=== PATIENT | female | born 1960 | race African-American/Black ===

== ENCOUNTER 2020-11-30 00:34 | Emergency (ER) | payer BC ==
[2020-11-30] MEDS ORDERED: NA CHLORIDE 0.9% 1,000 ML ONE (01:27)
[2020-11-30] MEDS ORDERED: ONDANSETRON 4 MG/2 ML VIAL ONE (01:27)
[2020-11-30] MEDS ORDERED: MORPHINE 2 MG/ML SYR ONE (01:27)
[2020-11-30 01:42] LABS: Absolute Lymphocytes (CBC) 2.5 K/uL (0.7-4.9); Basophils % 0.9 % (0-1.3); Hematocrit 38.8 % (36.0-45.0); Lymphocytes % 40.9 % (15.3-44.8); MPV 10.4 fL (7.6-11.3); RBC Red Blood Cell Count 4.27 M/uL (3.86-4.86)
[2020-11-30 01:46] LABS: Protime INR 0.98
[2020-11-30 02:02] LABS: ALT/SGPT 31 U/L (12-78); AST/SGOT 23 U/L (15-37); Albumin 3.7 g/dL (3.4-5.0); Alkaline Phosphatase 119 U/L (45-117); BUN Blood Urea Nitrogen 8 mg/dL (7-18); Bicarbonate 25 mmol/L (21-32); Bilirubin Direct < 0.1 mg/dL (0-0.2); Bilirubin Total 0.2 mg/dL (0.2-1.0); Glucose Level 113 mg/dL (74-106); Lipase 106 U/L (73-393); Magnesium 2.2 mg/dL (1.8-2.4); NT PRO-BNP 61 pg/mL (<125); Potassium 3.6 mmol/L (3.5-5.1); Protein, Total 7.6 g/dL (6.4-8.2); Sodium Level 145 mmol/L (136-145); Troponin (Emerg Dept Use Only) < 0.02 ng/mL (0.0-0.045)
--- NOTE | 2020-11-30 02:19 | ER ---
Nurse's Notes [facility] Name: Sommer Thibodeaux Age: 60 yrs Sex: Female : 1960 Arrival Date: 11/30/2020 Time: 00:37 Bed 5 Private MD: Diagnosis: Diarrhea, unspecified Presentation: 11/30 00:55 Chief complaint: Patient states: diarrhea that started at 130 PM today, denies N/V or em abd pain, also reports right shoulder pain, had a stress test and EKG done yesterday to clear her for lithotripsy next week. Coronavirus screen: Client denies travel out of the [place] in the last 14 days. Ebola Screen: Patient negative for fever greater than or equal to 101.5 degrees Fahrenheit, and additional compatible Ebola Virus Disease symptoms Patient denies exposure to infectious person. Patient denies travel to an Ebola-affected area in the 21 days before illness onset. No symptoms or risks identified at this time. Initial Sepsis Screen: Does the patient meet any 2 criteria? No. Patient's initial sepsis screen is negative. Does the patient have a suspected source of infection? No. Patient's initial sepsis screen is negative. Risk Assessment: Do you want to hurt yourself or someone else? Patient reports no desire to harm self or others. Onset of symptoms was November 30, 2020. 00:55 Method Of Arrival: Ambulatory em 00:55 Acuity: VICTORIA 3 em Historical: - Allergies: 01:01 No Known Allergies; em - PMHx: 01:01 Hypertension; em - PSHx: 01:01 Tubal ligation; Hysterectomy; em - Immunization history:: Adult Immunizations up to date. - Social history:: Smoking status: Patient denies any tobacco usage or history of. - Family history:: not pertinent. Screenin:29 Abuse screen: Denies threats or abuse. Denies injuries from another. Nutritional rr5 screening: No deficits noted. Tuberculosis screening: No symptoms or risk factors identified. Fall Risk IV access (20 points). Total Zayas Fall Scale indicates No Risk (0-24 pts). Assessment: 01:30 General: Appears in no apparent distress. uncomfortable, Behavior is calm, cooperative, rr5 appropriate for age. Pain: Complains of pain in shoulder Pain currently is 5 out of 10 on a pain scale. Quality of pain is described as aching, Pain began gradually, Is intermittent. Neuro: Level of Consciousness is awake, alert, obeys commands, Oriented to person, place, time, situation. Cardiovascular: Capillary refill < 3 seconds Patient's skin is warm and dry. Respiratory: Airway is patent Respiratory effort is even, unlabored, Respiratory pattern is regular, symmetrical. GI: Reports diarrhea. : No signs and/or symptoms were reported regarding the genitourinary system. EENT: No signs and/or symptoms were reported regarding the EENT system. Derm: Skin is intact, is healthy with good turgor, Skin temperature is warm. Musculoskeletal: Circulation, motion, and sensation intact. Capillary refill < 3 seconds, Reports pain in shoulder. 02:55 Reassessment: Patient appears in no apparent distress at this time. Patient states mg2 feeling better. Patient states symptoms have improved. Vital Signs: 00:55 BP 159 / 97; Pulse 68; Resp 18; Temp 98.5; Pulse Ox 100% on R/A; Weight 97.07 kg; em Height 5 ft. 6 in. (167.64 cm); Pain 5/10; 01:43 BP 179 / 92; Pulse 58; Resp 17; Pulse Ox 98% ; rr5 02:53 BP 157 / 83; Pulse 54; Resp 15; Temp 98.3; Pulse Ox 100% ; rv 00:55 Body Mass Index 34.54 (97.07 kg, 167.64 cm) em ED Course: 00:37 Patient arrived in ED. ag3 00:42 Nikunj Padilla, BELÉN is Primary Nurse. rv 01:01 Triage completed. em 01:01 Arm band placed on. em 01:02 Ayad Leon MD is Attending Physician. meghann 01:23 XRAY Chest (1 view) In Process Unspecified. EDMS 01:29 Patient has correct armband on for positive identification. Bed in low position. Call rr5 light in reach. Pulse ox on. NIBP on. 01:29 Inserted saline lock: 20 gauge in right forearm, using aseptic technique. rr5 01:43 teletypesetter monitor on. rr5 01:43 EKG done, by ED staff, reviewed by Ayad Leon MD. rr5 02:18 Alissa Cruz MD is Referral Physician. meghann 02:53 No provider procedures requiring assistance completed. IV discontinued, intact, rv bleeding controlled, No redness/swelling at site. Pressure dressing applied. Administered Medications: 01:25 Drug: NS 0.9% 1000 ml Route: IV; Rate: 1 bolus; Site: right forearm; rr5 02:28 Follow up: Response: No adverse reaction; IV Status: Completed infusion; IV Intake: mg2 1000ml 01:25 Drug: Zofran (Ondansetron) 4 mg Route: IVP; Site: right forearm; rr5 02:28 Follow up: Response: No adverse reaction mg2 01:27 Drug: morphine 2 mg {Note: rass 0.} Route: IVP; Site: right forearm; rr5 02:28 Follow up: Response: No adverse reaction mg2 02:28 Drug: LoMOTIL 2 tabs Route: PO; mg2 02:28 Follow up: Response: No adverse reaction mg2 Intake: 02:28 IV: 1000ml; Total: 1000ml. mg2 Outcome: 02:18 Discharge ordered by . meghann 02:53 Discharged to home ambulatory. rv 02:53 Condition: good 02:54 Discharge instructions given to patient, Instructed on discharge instructions, follow rv up and referral plans. medication usage, Demonstrated understanding of instructions, follow-up care, medications, Prescriptions given X 1. 02:55 Patient left the ED. rv Signatures: Dispatcher [employer] Ayad De Leon MD MD cha Munoz, Edgar, RN RN em Jhon Whitfield RN BELÉN mg2 Nikunj Padilla RN RN rv Radha Valencia Raymond RN RN rr5 Corrections: (The following items were deleted from the chart) 01:02 00:55 Chief complaint: Patient states: diarrhea that started at 130 PM today, denies em N/V, also reports right shoulder pain, had a stress test and EKG done yesterday to clear her for lithotripsy next week em
--- NOTE | 2020-11-30 02:19 | EDPHYS ---
Physician Documentation [facility] Name: Sommer Thibodeaux Age: 60 yrs Sex: Female : 1960 Arrival Date: 11/30/2020 Time: 00:37 Bed 5 Private MD: GRETCHEN Physician Ayad Leon HPI: 11/30 01:10 This 60 yrs old Black Female presents to ER via Ambulatory with complaints of Diarrhea. meghann 01:10 The patient presents to the emergency department with diarrhea, abdominal pain, of the meghann right upper quadrant, left upper quadrant, right lower quadrant and left lower quadrant. Onset: The symptoms/episode began/occurred 1 day(s) ago. Possible causes: unknown. The symptoms are aggravated by nothing. The symptoms are alleviated by nothing. Associated signs and symptoms: The patient has no apparent associated signs or symptoms. Severity of symptoms: At their worst the symptoms were mild in the emergency department the symptoms are unchanged. The patient has not experienced similar symptoms in the past. Historical: - Allergies: 01:01 No Known Allergies; em - PMHx: 01:01 Hypertension; em - PSHx: 01:01 Tubal ligation; Hysterectomy; em - Immunization history:: Adult Immunizations up to date. - Social history:: Smoking status: Patient denies any tobacco usage or history of. - Family history:: not pertinent. ROS: 01:10 Constitutional: Negative for fever, chills, and weight loss, Eyes: Negative for injury, meghann pain, redness, and discharge, ENT: Negative for injury, pain, and discharge, Neck: Negative for injury, pain, and swelling, Cardiovascular: Negative for chest pain, palpitations, and edema, Respiratory: Negative for shortness of breath, cough, wheezing, and pleuritic chest pain, Back: Negative for injury and pain, : Negative for injury, bleeding, discharge, and swelling, MS/Extremity: Negative for injury and deformity, Skin: Negative for injury, rash, and discoloration, Neuro: Negative for headache, weakness, numbness, tingling, and seizure, Psych: Negative for depression, anxiety, suicide ideation, homicidal ideation, and hallucinations, Allergy/Immunology: Negative for hives, rash, and allergies, Endocrine: Negative for neck swelling, polydipsia, polyuria, polyphagia, and marked weight changes, Hematologic/Lymphatic: Negative for swollen nodes, abnormal bleeding, and unusual bruising. 01:10 Abdomen/GI: Positive for abdominal pain, diarrhea. Exam: 01:10 Constitutional: This is a well developed, well nourished patient who is awake, alert, meghann and in no acute distress. Head/Face: Normocephalic, atraumatic. Eyes: Pupils equal round and reactive to light, extra-ocular motions intact. Lids and lashes normal. Conjunctiva and sclera are non-icteric and not injected. Cornea within normal limits. Periorbital areas with no swelling, redness, or edema. ENT: Nares patent. No nasal discharge, no septal abnormalities noted. Tympanic membranes are normal and external auditory canals are clear. Oropharynx with no redness, swelling, or masses, exudates, or evidence of obstruction, uvula midline. Mucous membranes moist. Neck: Trachea midline, no thyromegaly or masses palpated, and no cervical lymphadenopathy. Supple, full range of motion without nuchal rigidity, or vertebral point tenderness. No Meningismus. Chest/axilla: Normal chest wall appearance and motion. Nontender with no deformity. No lesions are appreciated. Cardiovascular: Regular rate and rhythm with a normal S1 and S2. No gallops, murmurs, or rubs. Normal PMI, no JVD. No pulse deficits. Respiratory: Lungs have equal breath sounds bilaterally, clear to auscultation and percussion. No rales, rhonchi or wheezes noted. No increased work of breathing, no retractions or nasal flaring. Abdomen/GI: Soft, non-tender, with normal bowel sounds. No distension or tympany. No guarding or rebound. No evidence of tenderness throughout. Back: No spinal tenderness. No costovertebral tenderness. Full range of motion. Female : Normal external genitalia. Skin: Warm, dry with normal turgor. Normal color with no rashes, no lesions, and no evidence of cellulitis. MS/ Extremity: Pulses equal, no cyanosis. Neurovascular intact. Full, normal range of motion. Neuro: Awake and alert, GCS 15, oriented to person, place, time, and situation. Cranial nerves II-XII grossly intact. Motor strength 5/5 in all extremities. Sensory grossly intact. Cerebellar exam normal. Normal gait. Psych: Awake, alert, with orientation to person, place and time. Behavior, mood, and affect are within normal limits. 01:44 ECG was reviewed by the Attending Physician. [facility] Vital Signs: 00:55 BP 159 / 97; Pulse 68; Resp 18; Temp 98.5; Pulse Ox 100% on R/A; Weight 97.07 kg; em Height 5 ft. 6 in. (167.64 cm); Pain 5/10; 01:43 BP 179 / 92; Pulse 58; Resp 17; Pulse Ox 98% ; rr5 02:53 BP 157 / 83; Pulse 54; Resp 15; Temp 98.3; Pulse Ox 100% ; rv 00:55 Body Mass Index 34.54 (97.07 kg, 167.64 cm) em MDM: 01:[address] [facility] 01:11 Differential diagnosis: Nonspecific abd pain, gastritis, pancreatitis, diverticulitis, meghann viral gastroenteritis. Data reviewed: vital signs, nurses notes, lab test result(s), EKG, radiologic studies, plain films. 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 Test interpretation: by ED physician or midlevel provider: ECG, plain radiologic studies. 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 11/30 01:09 Order name: Basic Metabolic Panel [facility] 11/30 01:09 Order name: CBC with Diff [facility] 11/30 01:09 Order name: LFT's [facility] 11/30 01:09 Order name: Magnesium; Complete Time: 02:14 [facility] 11/30 01:09 Order name: NT PRO-BNP; Complete Time: 02:14 [facility] 11/30 01:09 Order name: PT-INR; Complete Time: 02:14 [facility] 11/30 01:09 Order name: Troponin (emerg Dept Use Only); Complete Time: 02:14 [facility] 11/30 01:09 Order name: Lipase; Complete Time: 02:14 [facility] 11/30 01:09 Order name: Urine Culture [facility] 11/30 01:09 Order name: Stool Culture [facility] 11/30 01:09 Order name: Fecal Leukocyte Stain [facility] 11/30 01:10 Order name: Basic Metabolic Panel; Complete Time: 02:14 [facility] 11/30 01:10 Order name: CBC with Automated Diff; Complete Time: 01:44 [facility] 11/30 01:10 Order name: Liver (Hepatic) Function; Complete Time: 02:14 [facility] 11/30 01:09 Order name: XRAY Chest ([address] view) [facility] 11/30 01:09 Order name: EKG; Complete Time: 01:11 [facility] 11/30 01:09 Order name: Cardiac monitoring; Complete Time: 01:31 [facility] 11/30 01:09 Order name: EKG - Nurse/Tech; Complete Time: 02:29 [facility] 11/30 01:09 Order name: IV Saline Lock; Complete Time: 01:31 [facility] 11/30 01:09 Order name: Labs collected and sent; Complete Time: : [facility] 11/30 01:09 Order name: O2 Per Protocol; Complete Time: :31 [facility] 11/30 01:23 Order name: COVID-19 : Document "Date of Symptom Onset" if Symptomatic. [facility] 11/30 02:27 Order name: SARS-COV-2 RT PCR; Complete Time: 02:54 [facility] 11/30 02:33 Order name: Urine Dipstick--Ancillary (enter results) ds4 11/30 02:34 Order name: Urine Dipstick-Ancillary [facility] 11/30 01:09 Order name: O2 Sat Monitoring; Complete Time: 01:44 [facility] 11/30 01:09 Order name: Urine Dipstick-Ancillary (obtain specimen); Complete Time: 02:34 [facility] EC:44 Rate is 52 beats/min. Rhythm is regular. QRS [place] is Normal. [place] interval is normal. QRS meghann interval is normal. QT interval is normal. No Q waves. T waves are Normal. No ST changes noted. Clinical impression: Normal ECG and No evidence of ischemia. Interpreted by me. Reviewed by me. Administered Medications: 01:25 Drug: NS 0.9% 1000 ml Route: IV; Rate: 1 bolus; Site: right forearm; rr5 02:28 Follow up: Response: No adverse reaction; IV Status: Completed infusion; IV Intake: mg2 1000ml 01:25 Drug: Zofran (Ondansetron) 4 mg Route: IVP; Site: right forearm; rr5 02:28 Follow up: Response: No adverse reaction mg2 01:27 Drug: morphine 2 mg {Note: rass 0.} Route: IVP; Site: right forearm; rr5 02:28 Follow up: Response: No adverse reaction mg2 02:28 Drug: LoMOTIL 2 tabs Route: PO; mg2 02:28 Follow up: Response: No adverse reaction mg2 Disposition: 11/30/20 02:18 Discharged to Home. Impression: Diarrhea, unspecified. - Condition is Stable. - Discharge Instructions: Food Choices to Help Relieve Diarrhea, Adult, Diarrhea, Adult, Diarrhea, Adult, [id number]. - Prescriptions for Lomotil 2.5- 0.025 mg Oral Tablet - take 1 tablet by ORAL route every 6 hours As needed; 20 tablet. - Medication Reconciliation Form, Thank You Letter, Antibiotic Education, Prescription Opioid Use form. - Follow up: Private Physician; When: 2 - 3 days; Reason: Recheck today's complaints, Continuance of care, Re-evaluation by your physician. Follow up: Alissa Cruz; When: 2 - 3 days; Reason: Recheck today's complaints, Re-evaluation by your physician. - Problem is new. - Symptoms have improved. Signatures: Dispatcher [employer] [facility] Ayad Leon MD MD cha Munoz, Edgar, RN RN em Jhon Whitfield RN RN [facility] [place] Nikunj Padilla RN RN rv Doc Cast RN RN rr5 Corrections: (The following items were deleted from the chart) 01:41 01:24 CORONAVIRUS ordered. [facility] 02:55 02:18 11/30/2020 02:18 Discharged to Home. Impression: Diarrhea, unspecified. Condition rv is Stable. Discharge Instructions: Food Choices to Help Relieve Diarrhea, Adult, Diarrhea, Adult, Diarrhea, Adult, [id number]. Prescriptions for Lomotil 2.5-0.025 mg Oral Tablet - take 1 tablet by ORAL route every 6 hours As needed; 20 tablet. and Forms are Medication Reconciliation Form, Thank You Letter, Antibiotic Education, Prescription Opioid Use. Follow up: Private Physician; When: 2 - 3 days; Reason: Recheck today's complaints, Continuance of care, Re-evaluation by your physician. Follow up: Oraliazam Nancy; When: 2 - 3 days; Reason: Recheck today's complaints, Re-evaluation by your physician. Problem is new. Symptoms have improved. meghann
[2020-11-30] MEDS ORDERED: DIPHENOX/ATROP SULF 1 TAB PO ONE (02:41)
[2020-11-30 02:56] LABS: Urine Blood TRACE (NEG); Urine Glucose NEGATIVE (NEG); Urine Protein NEGATIVE (NEG); Urine Specific Gravity 1.015 (1.005-1.030)
[2020-11-30 03:06] VITALS: BP 157/83; TEMP 98.3; O2SAT 100
--- NOTE | 2020-11-30 08:09 | RAD REPORT ---
EXAM DESCRIPTION: Dori Single View11/30/2020 1:23 am CLINICAL HISTORY: Chest pain COMPARISON: 2010 FINDINGS: The lungs appear grossly clear. The heart is normal size IMPRESSION: No acute abnormalities displayed
--- NOTE | 2020-12-02 07:58 | EKG ---
Test Date: 2020-11-30 Test Time: 01:40:19 Undergraduate Intern: RR MEASUREMENT RESULTS: Intervals: Rate: 52 MT: 150 QRSD: 84 QT: 412 QTc: 383 [place]: P: 56 MT: 150 QRS: 47 T: 54 INTERPRETIVE STATEMENTS: Sinus bradycardia Otherwise normal ECG Compared to ECG 09/25/2011 15:36:12 Sinus rhythm no longer present Electronically Signed On 12-02-20 07:53:43 WAREHOUSE COORDINATOR by Claudio Diehl
== END 2020-11-30 02:55 | disposition home or self-care (01) ==
LOC: ER 00:34
DX: R19.7 Diarrhea, unspecified (principal); Z20.822 Contact with and (suspected) exposure to COVID-19; I10 Essential (primary) hypertension
CPT/HCPCS: 96361; 93005; 87088; 87045; 85025; 87086; 80048; 36415; 83735; 89055; 85610; 80076; 87046; 81003; 84484; 83690; 83880; 71045; 96375; 96374; 99284; U0003; J2270; J7030; J2405

== ENCOUNTER 2020-11-30 13:40 | Emergency (ER) | payer BC ==
--- NOTE | 2020-11-30 14:36 | EDPHYS ---
Physician Documentation [facility] Name: Sommer Thibodeaux Age: 60 yrs Sex: Female : 1960 Arrival Date: 11/30/2020 Time: 13:41 Bed 13 Private MD: Jeramy Lowry V ED Physician Raulito Patel HPI: 11/30 13:46 This 60 yrs old Black Female presents to ER via Unassigned with complaints of Blood cp Pressure Check. 13:46 Patient reports she was here at the hospital for blood draw when she became dizzy and cp lightheaded. Patient reports being seen and evaluated last night in [facility] ED for diarrhea. Denies diarrhea today. Would like to have blood pressure checked. Historical: - PMHx: 13:50 Hypertension; vg1 - Social history:: Smoking status: Patient denies any tobacco usage or history of. ROS: 13:55 Constitutional: Negative for body aches, chills, fever, poor PO intake. cp 13:55 Eyes: Negative for injury, pain, redness, and discharge. cp 13:55 Cardiovascular: Negative for chest pain, edema, palpitations. 13:55 Respiratory: Negative for cough, shortness of breath, wheezing. 13:55 Abdomen/GI: Negative for abdominal pain, nausea, vomiting, and diarrhea, black/tarry stool, rectal bleeding. 13:55 : Negative for urinary symptoms. 13:55 Neuro: Negative for altered mental status, headache, loss of consciousness, syncope, weakness. 13:55 All other systems are negative. Exam: 14:22 Head/Face: Normocephalic, atraumatic. cp 14:22 Constitutional: The patient appears in no acute distress, alert, awake, non-diaphoretic, non-toxic, well developed, well nourished. 14:22 Eyes: Periorbital structures: appear normal, Conjunctiva: normal, no exudate, no injection, Sclera: no appreciated abnormality, Lids and lashes: appear normal, bilaterally. 14:22 ENT: External ear(s): are unremarkable, Nose: is normal, Posterior pharynx: Airway: no evidence of obstruction, patent. 14:22 Chest/axilla: Inspection: normal. 14:22 Cardiovascular: Rate: normal, Rhythm: regular, Edema: is not appreciated, JVD: is not appreciated. 14:22 Respiratory: the patient does not display signs of respiratory distress, Respirations: normal, no use of accessory muscles, no retractions, labored breathing, is not present, Breath sounds: are clear throughout, no decreased breath sounds. 14:22 Abdomen/GI: Inspection: abdomen appears normal, Bowel sounds: active, all quadrants, Palpation: abdomen is soft and non-tender, in all quadrants. 14:22 Back: pain, is absent, ROM is normal. 14:22 Neuro: Orientation: to person, place \T\ time. Mentation: is normal, Motor: moves all fours, strength is normal. Vital Signs: 13:48 BP 163 / 90; Pulse 62; Resp 18; Temp 97.9; Pulse Ox 100% on R/A; Pain 0/10; vg1 14:22 BP 135 / 72 Supine; Pulse 58; vg1 14:25 BP 140 / 82 Sitting; Pulse 62; vg1 14:28 BP 140 / 89 Standing; Pulse 58; vg1 MDM: 13:46 Patient medically screened. cp 14:35 Data reviewed: vital signs, nurses notes. cp 14:35 Differential diagnosis: gastroenteritis, dehydration, electrolyte abnormality, cardiac cp arrythmia. Counseling: I had a detailed discussion with the patient and/or guardian regarding: the historical points, exam findings, and any diagnostic results supporting the discharge/admit diagnosis, the presence of at least one elevated blood pressure reading (>120/80) during this emergency department visit, to return to the emergency department if symptoms worsen or persist or if there are any questions or concerns that arise at home. Refusal of service: The patient/guardian displays adequate decision making capability and despite a detailed discussion of alternatives, benefits, risks, and consequences refuses: all lab tests. 11/30 13:47 Order name: Orthostatics; Complete Time: 14:29 cp Administered Medications: No medications were administered Disposition: 17:17 Co-signature as Attending Physician, Raulito Patel MD I agree with the assessment and kdr plan of care. Disposition: 11/30/20 14:36 Discharged to Home. Impression: Encounter for examination of blood pressure. - Condition is Stable. - Discharge Instructions: How to Take Your Blood Pressure, [id number], Form - Blood Pressure Record Sheet. - Medication Reconciliation Form, Thank You Letter, Antibiotic Education, Prescription Opioid Use form. - Follow up: Private Physician; When: 1 - 2 days; Reason: Recheck today's complaints. - Problem is new. - Symptoms have improved. Signatures: Raulito Patel MD MD [facility] Anisha White, RN RN aa5 Ayad Chavez PA PA cp Garcia, Victoria RN RN vg1 Corrections: (The following items were deleted from the chart) 14:45 14:36 11/30/2020 14:36 Discharged to Home. Impression: Encounter for examination of aa5 blood pressure. Condition is Stable. Forms are Medication Reconciliation Form, Thank You Letter, Antibiotic Education, Prescription Opioid Use. Follow up: Private Physician; When: 1 - 2 days; Reason: Recheck today's complaints. Problem is new. Symptoms have improved. cp
--- NOTE | 2020-11-30 14:36 | ER ---
Nurse's Notes [facility] Name: Sommer Thibodeaux Age: 60 yrs Sex: Female : 1960 Arrival Date: 11/30/2020 Time: 13:41 Bed 13 Private MD: Jeramy Lowry V Diagnosis: Encounter for examination of blood pressure Presentation: 11/30 13:48 Chief complaint: Patient states: Was in the front lobby doing some lab work and became vg1 a little dizzy and lightheaded. Coronavirus screen: Client denies travel out of the [place] in the last 14 days. Ebola Screen: Patient negative for fever greater than or equal to 101.5 degrees Fahrenheit, and additional compatible Ebola Virus Disease symptoms. Initial Sepsis Screen: Does the patient meet any 2 criteria? No. Patient's initial sepsis screen is negative. Does the patient have a suspected source of infection? No. Patient's initial sepsis screen is negative. Risk Assessment: Do you want to hurt yourself or someone else? Patient reports no desire to harm self or others. Onset of symptoms was November 30, 2020. 13:48 Method Of Arrival: Ambulatory vg1 13:48 Acuity: VICTORIA 4 vg1 Historical: - PMHx: 13:50 Hypertension; vg1 - Social history:: Smoking status: Patient denies any tobacco usage or history of. Screenin:31 Abuse screen: Denies threats or abuse. Nutritional screening: No deficits noted. vg1 Tuberculosis screening: No symptoms or risk factors identified. Fall Risk No fall in past 12 months (0 pts). No secondary diagnosis (0 pts). No IV (0 pts). Ambulatory Aid- None/Bed Rest/Nurse Assist (0 pts). Gait- Normal/Bed Rest/Wheelchair (0 pts) Mental Status- Oriented to own ability (0 pts). Total Zayas Fall Scale indicates No Risk (0-24 pts). Assessment: 13:50 General: Appears in no apparent distress. comfortable, Behavior is calm, cooperative. vg1 Pain: Denies pain. Neuro: Level of Consciousness is awake, alert, obeys commands, Oriented to person, place, time, situation. Cardiovascular: Patient's skin is warm and dry. Respiratory: Airway is patent Respiratory effort is even, unlabored, Respiratory pattern is regular, symmetrical. GI: No signs and/or symptoms were reported involving the gastrointestinal system. : No signs and/or symptoms were reported regarding the genitourinary system. EENT: No signs and/or symptoms were reported regarding the EENT system. Derm: Skin is intact, is healthy with good turgor. Musculoskeletal: Circulation, motion, and sensation intact. 14:32 Pain: Pain does not radiate. vg1 14:40 Neuro: Level of Consciousness is awake, alert, obeys commands, Oriented to person, aa5 place, time, situation. Respiratory: Airway is patent Respiratory effort is even, unlabored, Respiratory pattern is regular, symmetrical. Derm: Skin is dry, Skin is normal, Skin temperature is warm. Vital Signs: 13:48 BP 163 / 90; Pulse 62; Resp 18; Temp 97.9; Pulse Ox 100% on R/A; Pain 0/10; vg1 14:22 BP 135 / 72 Supine; Pulse 58; vg1 14:25 BP 140 / 82 Sitting; Pulse 62; vg1 14:28 BP 140 / 89 Standing; Pulse 58; vg1 ED Course: 13:41 Patient arrived in ED. ds1 13:41 Jeramy Lowry MD is Private Physician. ds1 13:42 [facility]ad Chavez [facility]. cp 13:42 Raulito Patel MD is Attending Physician. cp 13:47 Zulema Brown, RN is Primary Nurse. vg1 13:49 Triage completed. vg1 14:31 Arm band placed on. vg1 14:31 Patient has correct armband on for positive identification. Pulse ox on. NIBP on. vg1 14:31 No provider procedures requiring assistance completed. Patient maintains SpO2 vg1 saturation greater than 95% on room air. 14:45 Patient did not have IV access during this emergency room visit. aa5 Administered Medications: No medications were administered Outcome: 14:36 Discharge ordered by MD. cp 14:40 Discharged to home ambulatory. aa5 14:40 Condition: stable 14:40 Discharge instructions given to patient, Instructed on discharge instructions, follow up and referral plans. Demonstrated understanding of instructions, follow-up care. 14:45 Patient left the ED. aa5 Signatures: Mary Trevizo ds1 Anisha White RN RN aa5 Ayad Chavez PA PA Zulema Shaikh RN RN vg1
[2020-11-30 14:49] VITALS: TEMP 97.9; O2SAT 100
[2020-11-30 14:52] VITALS: BP 140/89
== END 2020-11-30 14:45 | disposition home or self-care (01) ==
LOC: ER 13:40
DX: Z01.30 Encounter for examination of blood pressure without abnormal findings (principal); I10 Essential (primary) hypertension
CPT/HCPCS: 99284

== ENCOUNTER 2020-12-07 09:23 | Day surgery (SDC) | payer BC ==
[2020-12-07] MEDS ORDERED: AMPICILLIN SODIUM 2 GM in NA CHLORIDE 0.9% 100 ML IVPB SCH (10:00)
[2020-12-07] MEDS ORDERED: Ringers Lactate 1,000 ML IV ONE (10:06)
[2020-12-07] MEDS ORDERED: propofoL 200 MG/20 ML VIAL IV ONE (10:47)
[2020-12-07] MEDS ORDERED: MIDAZOLAM HCL 2 MG/2 ML INJ ONE (10:48)
[2020-12-07] MEDS ORDERED: FENTANYL CITR 100 MCG/2 ML ONE (10:48)
[2020-12-07] MEDS ORDERED: LIDOCAINE 1% MPF 5 ML VIAL ONE (10:48)
[2020-12-07] MEDS: Gentamicin Inj 240 MG in NA CHLORIDE 0.9% 100 ML IV SCH ×2 (11:06→11:11)
[2020-12-07] MEDS ORDERED: EPHEDRINE SULF 50 MG/ML VIAL ONE (11:26)
[2020-12-07] MEDS ORDERED: NS 0.9% VIAL 10 ML ONE (11:27)
[2020-12-07] MEDS ORDERED: KETOROLAC 30 MG/ML INJ ONE (11:28)
[2020-12-07] MEDS ORDERED: dexAMETHasone 10 MG/ML VIAL ONE (11:28)
[2020-12-07] MEDS ORDERED: ONDANSETRON 4 MG/2 ML VIAL ONE (11:31)
[2020-12-07] MEDS ORDERED: PHENAZOPYRIDINE 100MG TAB PO ONE (12:06)
[2020-12-07] MEDS ORDERED: HYDROCODONE/APAP 5/325 MG TAB PO PRN (12:06)
[2020-12-07 12:07] VITALS: O2SAT 99
--- NOTE | 2020-12-07 12:10 | RAD REPORT ---
EXAM DESCRIPTION: RAD - Urethrocystogrphy Retrograde - 12/07/2020 12:05 pm CLINICAL HISTORY: STENT COMPARISON: No comparisons FINDINGS: Total fluoro time: 0.44 minutes
[2020-12-07] MEDS ORDERED: HYDROCODONE/APAP 5/325 MG TAB ONE (13:10)
--- NOTE | 2020-12-07 13:12 | OP ---
Surgeon: ANGELA KANG Preoperative Diagnosis: Left 7 mm proximal ureterolithiasis. Postoperative Diagnosis: Left 7 mm proximal ureterolithiasis. Principal Procedures: 1.Cystoscopy. 2.Left retrograde pyelography. 3.Left ureteroscopy. 4.Left ureteral stent placement. Indication For Procedure: Ms. Thibodeaux presented to [facility] with a first episode of a left-sided isolated 7 mm proximal ureterolithiasis. She had pain, but by the time she saw me in the office, sh sharmaine had no further pain. She had not been straining her urine, but during the period of time, she was observed with the pain, the stone had not moved and remained proximal in location. As a result, ingris use over 3-4 weeks, it passed, she was scheduled for operative evaluation. She was sent with a lucindai ner to strain her urine in case she was able to pass the stone, but she did not regularly strain. Procedure Note: The patient was consented in the preoperative holding area before being transferred to the operative suite where general anesthesia was induced. She was given ampicillin and gentamicin IV antimicrobial prophylaxis. Pneumo boots were provided for DVT prophylaxis. She was placed in th e lithotomy position, padded and secured to the table appropriately. Her genitalia were prepped usin ismael Singletaryicleasif, and she was draped in standard fashion. The case was begun using a 22-Mosotho rigid cyst oscope to traverse the urethra into the bladder with ease. The bladder was surveyed in its entirety, and there were no mucosal lesions, foreign bodies, or stones noted throughout. The ureteral orifice s were orthotopic in location. The left ureteral orifice was visualized and cannulated using the tip of the Sensor wire and a 5-Mosotho ureteral access catheter. A retrograde pyelogram was then perform ed. Left retrograde pyelography: Using a 70:30 mixture of Omnipaque and saline, contrast was injected vi a the 5-Mosotho ureteral access catheter and did propagate with ease up a relatively nondilated ureter without any evident points of obstruction before entering a nondilated collecting system with no darian dence of caliectasis. There was some irregularity about the appearance of the calices in the left lo wer pole, but no radiodense calculus was visible. As a result, I then passed the Sensor wire into th e mid pole of the kidney with a coil observed fluoroscopically there. I then passed a dual-lumen cat heter into the mid distal ureter to dilate the ureteral orifice until a point of obstruction was reac hed in the mid distal ureter. I then removed the ureteral access catheter and performed semi-rigid u reteroscopy using saline pressurized fluid installation. I was able to navigate the semi-rigid urete roscope beyond the point of obstruction in the mid distal ureter. I was able to navigate the semi-ri gid ureteroscope into the mid ureter before the tightness prohibited further propagation safely. Bec ause the stone was noted proximally within the ureter, I then placed a Bentson guidewire via the semi -rigid ureteroscope and observed fluoroscopically coiled alongside the Sensor wire within the renal p cory. I then attempted to pass the flexible ureteroscope over the Bentson guidewire into the proxim al ureter, but was unable to get it passed the point of obstruction previously observed in the mid di stal ureter. As a result, I removed the ureteroscope and again passed the dual-lumen catheter to att empt to dilate, but again was met at that point of obstruction in the mid distal ureter. Attempts to use a superstiff guidewire to provide a path for navigating the dual lumen catheter further into the mid ureter was only minimally successful at best. I was not able to dilate even as far as I had pre viously been able to progress with the semi-rigid ureteroscope. As a result, I removed the dual-lume n catheter and again placed the semi-rigid ureteroscope, this time able to navigate a bit into the mi d proximal ureter before it was too tight to advisedly progress any further. At this point, I remove d the ureteroscope and backloaded the cystoscope over the indwelling safety wire in order to place a double-J 6-Mosotho x 24 cm ureteral stent. This was done under direct vision with ease, and a coil wa s observed fluoroscopically within the pelvis of the kidney on the left. An additional coil was obse rved cystoscopically within the bladder. I then decompressed her bladder, and the patient was taken out of the lithotomy position. She was then awakened from general anesthesia before being transferre d to a stretcher and then to the recovery room in good condition. Complications: None. Discharge Disposition: Given the proximal location of the ureteral calculus and the inability to ent er the last 1/4 of the proximal ureter to visualize for the presence of any calculus, I recommended w e consider obtaining a repeat CT scan to assess for persistence of a calculus, which she may have pas sed, before returning to the operating room for definitive ureteroscopy and potential laser lithotrip sy. Alternatively, we could simply plan to reschedule and perform definitive ureteroscopic and pilos copic visualization in the coming weeks. I will discuss this with the patient and her , who s uggested that perhaps they may be amenable to just getting the CT scan and only coming back if the st one is still visible there since there was a significant question as to whether she passed it, but di d not collect it. As such, we will obtain a CT scan in approximately 1-2 weeks before she follows up within the next 3 weeks to determine next steps. TANISHA/SHAYLA Voice ID: [id number] Report ID: [id number]
[2020-12-07 14:03] VITALS: BP 143/75; TEMP 96.9
== END 2020-12-07 13:30 | disposition home or self-care (01) ==
LOC: OR 09:23
PROVIDERS: ATTEND Urology
PROC: BT1FZZZ Fluoroscopy of Left Kidney, Ureter and Bladder (ICD-10-PCS; 2020-12-07)
PROC: 0T778DZ Dilation of Left Ureter with Intraluminal Device, Via Natural or Artificial Opening Endoscopic (ICD-10-PCS; principal; 2020-12-07 11:00)
DX: N20.1 Calculus of ureter (principal); I10 Essential (primary) hypertension
CPT/HCPCS: 87088; 87086; 74450; 51610; 52332; 52005; J2704; J1580; J2250; J3010; J1100; J7120; J2405; J0290

== ENCOUNTER 2020-12-09 10:30 | Emergency (ER) | payer BC ==
[2020-12-09 12:30] LABS: Urine Bacteria 20-50 /HPF (<20); Urine RBC >50 /HPF (NONE SEEN)
[2020-12-09 13:39] LABS: Potassium 3.8 mmol/L (3.5-5.1)
[2020-12-09 13:40] LABS: Absolute Lymphocytes (CBC) 2.6 K/uL (0.7-4.9); Hematocrit 39.5 % (36.0-45.0); Lymphocytes % 36.5 % (15.3-44.8); MPV 11.2 fL (7.6-11.3)
--- NOTE | 2020-12-09 13:48 | EDPHYS ---
Physician Documentation [facility] Name: Sommer Thibodeaux Age: 60 yrs Sex: Female : 1960 Arrival Date: 12/09/2020 Time: 10:31 Bed 26 Private MD: ED Physician Yuniel Fuller HPI: 12/09 13:44 This 60 yrs old Black Female presents to ER via Ambulatory with complaints of Burning pm1 with urination and hematuria. 13:44 The patient presents with urinary symptoms, burning with urination and hematuria . pm1 Onset: The symptoms/episode began/occurred burning with urination onset yesterday. hematuria present since lithotripsy on Thursday. 13:44 Modifying factors: the symptoms are aggravated by urinating. Associated signs and pm1 symptoms: Pertinent negatives: abdominal pain or flank pain. Severity of symptoms: in the emergency department the symptoms are unchanged. The patient has not experienced similar symptoms in the past. The patient has been recently seen by a physician: Dr. Tobar placed a stent in her ureter and performed lithotripsy. Patient has not taken any of her prescribed medications except for Bystolic. She is not taking her Cipro which she was prescribed after the lithotripsy. Historical: - Allergies: 11:09 No Known Allergies; ca1 - PMHx: 11:09 Hypertension; ca1 - PSHx: 11:09 Lithotripsy; ca1 - Immunization history:: Flu vaccine is up to date. - Social history:: Smoking status: Patient denies any tobacco usage or history of. ROS: 13:44 Positive for urinary frequency, hematuria, burning with urination. pm1 13:44 Constitutional: Negative for fever, chills, and weight loss, Cardiovascular: Negative for chest pain, palpitations, and edema, Respiratory: Negative for shortness of breath, cough, wheezing, and pleuritic chest pain, Abdomen/GI: Negative for abdominal pain, nausea, vomiting, diarrhea, and constipation, Back: Negative for injury and pain, MS/Extremity: Negative for injury and deformity, Skin: Negative for injury, rash, and discoloration, Neuro: Negative for headache, weakness, numbness, tingling, and seizure. Exam: 13:44 Constitutional: This is a well developed, well nourished patient who is awake, alert, pm1 and in no acute distress. Head/Face: Normocephalic, atraumatic. 13:44 Skin: Warm, dry with normal turgor. Normal color with no rashes, no lesions, and no evidence of cellulitis. MS/ Extremity: Pulses equal, no cyanosis. Neurovascular intact. Full, normal range of motion. 13:44 Cardiovascular: Exam negative for acute changes, Rate: normal, Rhythm: regular, Pulses: no pulse deficits are appreciated. 13:44 Respiratory: Exam negative for acute changes, respiratory distress, shortness of breath. 13:44 Abdomen/GI: Inspection: abdomen appears normal, Palpation: abdomen is soft and non-tender, in all quadrants. 13:44 Back: pain, is absent, CVA tenderness, is absent. 13:44 Neuro: Exam negative for acute changes, Orientation: is normal, Motor: is normal, moves all fours. Vital Signs: 11:03 BP 162 / 92; Pulse 57; Resp 18 S; Temp 97.3(TE); Pulse Ox 99% on R/A; Weight 95.71 kg ca1 (R); Height 5 ft. 6 in. (167.64 cm) (R); 12:45 BP 154 / 89; Pulse 47; Resp 16; Pulse Ox 99% on R/A; zb 13:43 BP 157 / 84; Pulse 47; Resp 18; Pulse Ox 100% on R/A; zb 14:42 BP 151 / 88; Pulse 49; Resp 16; Pulse Ox 99% on R/A; zb 11:03 Body Mass Index 34.06 (95.71 kg, 167.64 cm) ca1 MDM: 12:09 Patient medically screened. pm1 13:45 Data reviewed: vital signs. Data interpreted: Pulse oximetry: on room air is 99 %. pm1 Interpretation: normal. Counseling: I had a detailed discussion with the patient and/or guardian regarding: the historical points, exam findings, and any diagnostic results supporting the discharge/admit diagnosis, lab results, the need for outpatient follow up, a urologist, Instructed patient to take her prescribed medications as directed, to return to the emergency department if symptoms worsen or persist or if there are any questions or concerns that arise at home. 12/09 12:09 Order name: Urine Microscopic Only; Complete Time: 12:52 pm1 12/09 12:31 Order name: Urine Culture EDAZ 12/09 12:59 Order name: CBC with Diff; Complete Time: 13:44 pm1 12/09 12:59 Order name: BMP; Complete Time: 13:44 pm1 12/09 12:09 Order name: Urine Dipstick-Ancillary (obtain specimen); Complete Time: 12:17 pm1 Administered Medications: 14:05 Drug: Rocephin (cefTRIAXone) 1 grams Route: IM; Site: left deltoid; zb 14:42 Follow up: Response: No adverse reaction zb Disposition: 18:29 Co-signature as Attending Physician, Yuniel Fuller MD. rn Disposition: 12/09/20 13:47 Discharged to Home. Impression: Urinary tract infection, site not specified. - Condition is Stable. - Discharge Instructions: Urinary Tract Infection, Adult, Antibiotic Medicine, Adult. - Medication Reconciliation Form, Thank You Letter, Antibiotic Education, Prescription Opioid Use, Work release form form. - Follow up: Emergency Department; When: As needed; Reason: Worsening of condition. Follow up: Julio Cesar Tobar MD; When: 2 - 3 days; Reason: Recheck today's complaints, Continuance of care, Re-evaluation by your physician. - Problem is new. - Symptoms have improved. - Notes: Start taking your cipro as prescribed by your doctor Signatures: Dispatcher [employer] EDMS Yuniel Fuller MD MD rn Marinas, Patrick, NIESHA ENGINE ROOM HELPER pm1 Raine Reilly RN RN ca1 Brown, Zipporah, RN RN zb Corrections: (The following items were deleted from the chart) 12:55 12:39 URINE DIPSTICK--ANCILLARY+U.LAB.BRZ ordered. [facility] EDAZ 14:48 13:47 12/09/2020 13:47 Discharged to Home. Impression: Urinary tract infection, site zb not specified. Condition is Stable. Forms are Medication Reconciliation Form, Thank You Letter, Antibiotic Education, Prescription Opioid Use. Follow up: Emergency Department; When: As needed; Reason: Worsening of condition. Follow up: Julio Cesar Tobar; When: 2 - 3 days; Reason: Recheck today's complaints, Continuance of care, Re-evaluation by your physician. Problem is new. Symptoms have improved. pm1 22:15 13:44 Onset: The symptoms/episode began/occurred burning with urination onset pm1 yesterday. hematuria present since lithotripsy on ,
--- NOTE | 2020-12-09 13:48 | ER ---
Nurse's Notes [facility] Name: Sommer Thibodeaux Age: 60 yrs Sex: Female : 1960 Arrival Date: 12/09/2020 Time: 10:31 Bed 26 Private MD: Diagnosis: Urinary tract infection, site not specified Presentation: 12/09 11:03 Chief complaint: Patient states: Had a procedure, Lithotripsy, done Thursday12/07/2020. ca1 Yesterday, started urinating every 20 minutes, pain with urination, still having blood in the urine. Also have diarrhea since 0300 today. Coronavirus screen: Client denies travel out of the [place] in the last 14 days. diarrhea, Client presents with at least one sign or symptom that may indicate coronavirus-19. Standard/surgical mask placed on the client. Provider contacted for isolation considerations. Ebola Screen: Patient negative for fever greater than or equal to 101.5 degrees Fahrenheit, and additional compatible Ebola Virus Disease symptoms Patient denies exposure to infectious person. Patient denies travel to an Ebola-affected area in the 21 days before illness onset. No symptoms or risks identified at this time. Initial Sepsis Screen: Does the patient meet any 2 criteria? No. Patient's initial sepsis screen is negative. Does the patient have a suspected source of infection? No. Patient's initial sepsis screen is negative. Risk Assessment: Do you want to hurt yourself or someone else? Patient reports no desire to harm self or others. Onset of symptoms was December 09, 2020. 11:03 Method Of Arrival: Ambulatory ca1 11:03 Acuity: VICTORIA 3 ca1 Historical: - Allergies: 11:09 No Known Allergies; ca1 - PMHx: 11:09 Hypertension; ca1 - PSHx: 11:09 Lithotripsy; ca1 - Immunization history:: Flu vaccine is up to date. - Social history:: Smoking status: Patient denies any tobacco usage or history of. Screenin:15 Abuse screen: Denies threats or abuse. Denies injuries from another. Nutritional zb screening: No deficits noted. Tuberculosis screening: No symptoms or risk factors identified. Fall Risk None identified. Assessment: 12:12 General: Appears in no apparent distress. uncomfortable, Behavior is calm, cooperative, zb appropriate for age. Pain: Complains of pain in meatus Pain does not radiate. Pain currently is 0 out of 10 on a pain scale. Quality of pain is described as burning, Pain began 2-3 days ago. Is episodic, Aggravated by urination. Neuro: Level of Consciousness is awake, alert, obeys commands, Oriented to person, place, time, situation. Cardiovascular: Heart tones S1 S2 present Capillary refill < 3 seconds in bilateral Patient's skin is warm and dry. Chest pain is denied. Respiratory: Airway is patent Trachea midline Respiratory effort is even, unlabored, Respiratory pattern is regular, symmetrical, Breath sounds are clear bilaterally. GI: Abdomen is round non-distended, obese, Bowel sounds present X 4 quads. Abd is soft and non tender X 4 quads. : Urine is blood tinged, Reports burning with urination, since 2-3 days pain urgency, since 2 days. EENT: No signs and/or symptoms were reported regarding the EENT system. Derm: Skin is intact, is healthy with good turgor, Skin is dry, Skin is normal, Skin temperature is warm. Musculoskeletal: Circulation, motion, and sensation intact. Range of motion: intact in all extremities. 13:12 Reassessment: Patient appears in no apparent distress at this time. Patient and/or zb family updated on plan of care and expected duration. Pain level reassessed. Patient is alert, oriented x 3, equal unlabored respirations, skin warm/dry/pink. pt ambulates to the restroom. 14:12 Reassessment: Patient appears in no apparent distress at this time. Patient and/or zb family updated on plan of care and expected duration. Pain level reassessed. Patient is alert, oriented x 3, equal unlabored respirations, skin warm/dry/pink. no changes. patient pending result for urine. 14:20 Reassessment: Patient pending IM injection wait time. zb 14:30 Reassessment: ECP at bedside discussing care. zb Vital Signs: 11:03 BP 162 / 92; Pulse 57; Resp 18 S; Temp 97.3(TE); Pulse Ox 99% on R/A; Weight 95.71 kg ca1 (R); Height 5 ft. 6 in. (167.64 cm) (R); 12:45 BP 154 / 89; Pulse 47; Resp 16; Pulse Ox 99% on R/A; zb 13:43 BP 157 / 84; Pulse 47; Resp 18; Pulse Ox 100% on R/A; zb 14:42 BP 151 / 88; Pulse 49; Resp 16; Pulse Ox 99% on R/A; zb 11:03 Body Mass Index 34.06 (95.71 kg, 167.64 cm) ca1 ED Course: 10:31 Patient arrived in ED. ag5 11:08 Triage completed. ca1 11:09 Arm band placed on right wrist. ca1 11:58 Rosaura Nicole RN is Primary Nurse. zb 12:00 Daniel Michelle NP is PHCP. pm1 12:01 Yuniel Fuller MD is Attending Physician. pm1 12:15 Patient has correct armband on for positive identification. Pulse ox on. NIBP on. Door zb closed. Noise minimized. 12:15 Urine collected: clean catch specimen, blood tinged. zb 13:20 Inserted saline lock: 20 gauge in right antecubital area, using aseptic technique. kj1 Blood collected. 13:26 Initial lab(s) drawn, by ak, sent to lab. kj1 13:46 Julio Cesar Tobar MD is Referral Physician. pm1 14:42 No provider procedures requiring assistance completed. Patient did not have IV access zb during this emergency room visit. Administered Medications: 14:05 Drug: Rocephin (cefTRIAXone) 1 grams Route: IM; Site: left deltoid; zb 14:42 Follow up: Response: No adverse reaction zb Outcome: 13:47 Discharge ordered by MD. pm1 14:42 Discharged to home ambulatory. zb 14:42 Condition: stable 14:42 Discharge instructions given to patient, Instructed on discharge instructions, follow up and referral plans. medication usage, Demonstrated understanding of instructions, follow-up care, medications. 14:48 Patient left the ED. zb Signatures: Daniel Michelle NP LOAN INTERVIEWER pm1 Raine Reilly RN RN ca1 MayraJoselyn ag5 Sushma Moore kj1 Rosaura Nicole RN RN zb
[2020-12-09] MEDS ORDERED: CEFTRIAXONE 1000 MG/VIAL ONE (14:12)
== END 2020-12-09 14:48 | disposition home or self-care (01) ==
LOC: ER 10:30
DX: N39.0 Urinary tract infection, site not specified (principal); R31.9 Hematuria, unspecified; I10 Essential (primary) hypertension; Z98.890 Other specified postprocedural states
CPT/HCPCS: 36415; 80048; 81015; 85025; 87086; 87088; 96372; 99284

== ENCOUNTER 2020-12-25 08:50 | Day surgery (SDC) | payer BC ==
[2020-12-25] MEDS ORDERED: CEFAZOLIN/SWI 1gm 1 GM/10 ML SYR ONE ×2 (10:26→16:44)
[2020-12-25] MEDS ORDERED: Ringers Lactate 1,000 ML IV ONE (10:26)
[2020-12-25] MEDS ORDERED: LIDOCAINE 1% MPF 5 ML VIAL ONE (15:36)
[2020-12-25] MEDS ORDERED: ONDANSETRON 4 MG/2 ML VIAL ONE (15:36)
[2020-12-25] MEDS ORDERED: MIDAZOLAM HCL 2 MG/2 ML INJ ONE (15:36)
[2020-12-25] MEDS ORDERED: propofoL 200 MG/20 ML VIAL IV ONE (15:36)
[2020-12-25] MEDS ORDERED: FENTANYL CITR 100 MCG/2 ML ONE (15:36)
[2020-12-25] MEDS ORDERED: PHENAZOPYRIDINE 100MG TAB PO ONE ×2 (16:13→18:44)
[2020-12-25] MEDS ORDERED: Oxycodone HCl/Acetaminophen 1 TAB TAB PO PRN (16:13)
[2020-12-25] MEDS ORDERED: KETOROLAC 30 MG/ML INJ ONE (16:38)
[2020-12-25] MEDS ORDERED: dexAMETHasone 10 MG/ML VIAL ONE (16:38)
[2020-12-25] MEDS ORDERED: Mastisol Adhesive Liq ONE (16:53)
--- NOTE | 2020-12-25 17:06 | RAD REPORT ---
EXAM DESCRIPTION: RAD - Urethrocystogrphy Retrograde - 12/25/2020 4:57 pm FINDINGS: Eight portable KUB images were obtained during fluoroscopic assisted placement of a left u reteral stent. No suspicious or unexpected finding. Fluoro time was 8 seconds.
[2020-12-25 17:15] VITALS: O2SAT 100
[2020-12-25 18:04] VITALS: TEMP 96.9
[2020-12-25] MEDS ORDERED: HYDROCODONE/APAP 5/325 MG TAB ONE (18:43)
[2020-12-25 18:51] VITALS: BP 158/65
--- NOTE | 2020-12-25 22:18 | OP ---
Surgeon: ANGELA KANG Preoperative Diagnosis: Left proximal ureteral 7 mm calculus/left ureterolithiasis. Postoperative Diagnosis: Left proximal ureteral 7 mm calculus/left ureterolithiasis. Principle Procedures: 1.Cystoscopy. 2.Left retrograde pyelography. 3.Left ureteroscopy, laser lithotripsy, and stent exchange. Indication For Procedure: Ms. Thibodeaux is a 60-year-old woman, first-time stone former, with a 7 mm pro ximal ureteral calculus causing obstruction. She had previously been taken to the operating room for attempted ureteroscopy, but I was unable to access the proximal ureter. As a result, stent was plac ed and she returns today for definitive management of the known calculus, which has been confirmed to be present despite her lack of pain via CT scan. Procedure In Detail: The patient was consented in the preoperative holding area before being transfe rred to the operative suite where general anesthesia was induced. She was given Ancef 2 g IV antimic robial prophylaxis and pneumo boots were provided for DVT prophylaxis. She was placed in the lithoto my position, padded and secured to the table appropriately. Her genitalia were prepped using Hibicle ns and she was draped in standard fashion. The case was begun using a 22-Czech rigid cystoscope to traverse the urethra and into the bladder with ease. The stent was noted to emanate from the left ur eteral orifice, and the tip of the stent was grasped using an alligator grasper and delivered via the meatus. Fluoroscopic imagery was used to identify the proximal tip of the stent still within the mi d proximal ureter. As a result, a Sensor wire was passed via the indwelling ureteral stent to coil i n the putative upper pole of the kidney. Then, over the indwelling Sensor wire, a dual-lumen cathete r was placed and a retrograde pyelogram was performed via the second lumen of the dual-lumen catheter . Left retrograde pyelography: Using a 70:30 mixture of Omnipaque and saline, contrast was injected via the second lumen of the dual -lumen catheter and did identify the appropriate intraureteral localization of the dual-lumen cathete r as well as the wires. The stone was radiopaque within the proximal ureter at the UPJ and the calic es did delineate appropriately. As a result, I placed a [place] guidewire via the second lumen of e dual-lumen catheter and watched it coil alongside the indwelling safety wire. The dual-lumen layla ter was then removed, and over the [place] guidewire, a flexible ureteroscope was passed into the upp er pole of the kidney. Calices of the kidney were then surveyed, and the 7 mm calculus was noted wit hin the mid lower pole calyx. Then using a 272 nm laser fiber at a power setting of 0.8 joules and 1 5 Hz to start, I began fragmenting the stone, which was very hard in nature. I increased the rate to 25 Hz and continued to fragment. Eventually, I decreased the power to 0.6 joules in order to try to further dust the stone, but it was so significantly hard, that the larger fragments were probably ab out 1 or 2 mm in maximum diameter, likely around 1 mm. As a result, I then discontinued laser lithot ripsy and surveyed the remainder of the kidney along with the renal pelvis and the proximal down thro ugh the mid and distal ureter on the way out. When no additional stones were noted and no strictured areas of the ureter were noted, the ureteroscope was removed, and I then back-loaded the cystoscope over her indwelling safety wire. I then passed a 6-Czech x 24 cm double-J left ureteral stent into the collecting system with a coil observed fluoroscopically in the upper pole. An additional coil wa s observed cystoscopically within the bladder and the bladder was decompressed of fluid and urine. T he stent was left on a string for ease of extraction, and the string was taped using Mastisol and Johnson ri-Strips to her labia majora. The patient was then taken out of the lithotomy position, awakened fr om general anesthesia, transferred to a stretcher, and then transferred to the recovery room in good condition. Complications: None. Discharge Disposition: She may follow up in the Urology Clinic on Thursday or Thursday for stent extract ion on a string with nurse practitionerWatson in the office. If she is not still taking antibiot ics, she may be given a single dose of either Macrobid or Bactrim for antimicrobial prophylaxis assum ing she has no allergies to those medications. Since this is her first time forming a stone, she pina uld be counseled extensively about the need to increase her fluid intake such that she makes at least 2 L of urine a day. If by chance she is a recurrent stone former, a metabolic stone profile assessm ent should be performed. She will bring in hopefully some fragments from the stone that was disrupte d, likely once the stent is removed from her straining her urine. This should be sent for chemical a nalysis. TANISHA/SHAYLA Voice ID: [id number] Report ID: [id number]
== END 2020-12-25 19:00 | disposition home or self-care (01) ==
LOC: OR 08:50
PROVIDERS: ATTEND Urology
PROC: 0T778DZ Dilation of Left Ureter with Intraluminal Device, Via Natural or Artificial Opening Endoscopic (ICD-10-PCS; 2020-12-25)
PROC: 0TF78ZZ Fragmentation in Left Ureter, Via Natural or Artificial Opening Endoscopic (ICD-10-PCS; principal; 2020-12-25 15:30)
DX: N20.1 Calculus of ureter (principal); N32.89 Other specified disorders of bladder; Z20.822 Contact with and (suspected) exposure to COVID-19
CPT/HCPCS: 87088; 87086; 74450; 51610; 52356; U0003; J2704; J2250; J3010; J1100; J0690 ×2; J7120; J2405

== ENCOUNTER 2021-01-18 21:34 | Emergency (ER) | payer BC ==
[2021-01-18 22:25] LABS: Protime INR 0.97
[2021-01-18 22:26] LABS: Absolute Lymphocytes (CBC) 2.5 K/uL (0.7-4.9); Basophils % 0.9 % (0-1.3); Hematocrit 37.6 % (36.0-45.0); Lymphocytes % 36.5 % (15.3-44.8); MPV 11.1 fL (7.6-11.3); RBC Red Blood Cell Count 4.12 M/uL (3.86-4.86)
[2021-01-18 22:41] LABS: ALT/SGPT 32 U/L (12-78); AST/SGOT 17 U/L (15-37); Albumin 3.7 g/dL (3.4-5.0); Alkaline Phosphatase 110 U/L (45-117); BUN Blood Urea Nitrogen 18 mg/dL (7-18); Bicarbonate 29 mmol/L (21-32); Bilirubin Direct < 0.1 mg/dL (0-0.2); Bilirubin Total 0.2 mg/dL (0.2-1.0); Glucose Level 106 mg/dL (74-106); NT PRO-BNP 61 pg/mL (<125); Potassium 3.7 mmol/L (3.5-5.1); Protein, Total 7.3 g/dL (6.4-8.2); Sodium Level 142 mmol/L (136-145); Troponin (Emerg Dept Use Only) < 0.02 ng/mL (0.0-0.045)
[2021-01-18] MEDS ORDERED: ASPIRIN 81 MG CHEWABLE TABLET ONE (23:22)
--- NOTE | 2021-01-19 01:06 | EDPHYS ---
Physician Documentation [facility] Name: Sommer Thibodeaux Age: 60 yrs Sex: Female : 1960 Arrival Date: 01/18/2021 Time: 21:42 Bed 15 Private MD: GRETCHEN Physician Ayad Leon HPI: 01/18 22:40 This 60 yrs old Black Female presents to ER via Ambulatory with complaints of High meghann Blood Pressure. 22:40 The patient has elevated blood pressure and discovered this at home. Onset: The meghann symptoms/episode began/occurred today. Modifying factors: The symptoms are aggravated by activity, The symptoms are alleviated by remaining still, prescription meds, JUNIOR-inhibitor, beta-annika. Associated signs and symptoms: The patient has no apparent associated signs or symptoms. Severity of symptoms: At its worst the blood pressure was moderate, in the emergency department the blood pressure is unchanged. The patient has experienced similar episodes in the past, a few times. Historical: - Allergies: 21:49 No Known Allergies; ca1 - PMHx: 21:49 Hypertension; ca1 - PSHx: 21:49 Lithotripsy; ca1 - Immunization history:: Flu vaccine is up to date. - Social history:: Smoking status: Patient denies any tobacco usage or history of. ROS: 22:41 Constitutional: Negative for fever, chills, and weight loss, Eyes: Negative for injury, meghann pain, redness, and discharge, ENT: Negative for injury, pain, and discharge, Neck: Negative for injury, pain, and swelling, Respiratory: Negative for shortness of breath, cough, wheezing, and pleuritic chest pain, Abdomen/GI: Negative for abdominal pain, nausea, vomiting, diarrhea, and constipation, Back: Negative for injury and pain, : Negative for injury, bleeding, discharge, and swelling, Skin: Negative for injury, rash, and discoloration, Neuro: Negative for headache, weakness, numbness, tingling, and seizure, Psych: Negative for depression, anxiety, suicide ideation, homicidal ideation, and hallucinations, Allergy/Immunology: Negative for hives, rash, and allergies, Endocrine: Negative for neck swelling, polydipsia, polyuria, polyphagia, and marked weight changes, Hematologic/Lymphatic: Negative for swollen nodes, abnormal bleeding, and unusual bruising. 22:41 Cardiovascular: Positive for chest pain. 22:41 MS/extremity: Positive for pain, of the right bicep and right tricep. Exam: 22:41 Constitutional: This is a well developed, well nourished patient who is awake, alert, meghann and in no acute distress. Head/Face: Normocephalic, atraumatic. Eyes: Pupils equal round and reactive to light, extra-ocular motions intact. Lids and lashes normal. Conjunctiva and sclera are non-icteric and not injected. Cornea within normal limits. Periorbital areas with no swelling, redness, or edema. ENT: Nares patent. No nasal discharge, no septal abnormalities noted. Tympanic membranes are normal and external auditory canals are clear. Oropharynx with no redness, swelling, or masses, exudates, or evidence of obstruction, uvula midline. Mucous membranes moist. Neck: Trachea midline, no thyromegaly or masses palpated, and no cervical lymphadenopathy. Supple, full range of motion without nuchal rigidity, or vertebral point tenderness. No Meningismus. Chest/axilla: Normal chest wall appearance and motion. Nontender with no deformity. No lesions are appreciated. Cardiovascular: Regular rate and rhythm with a normal S1 and S2. No gallops, murmurs, or rubs. Normal PMI, no JVD. No pulse deficits. Respiratory: Lungs have equal breath sounds bilaterally, clear to auscultation and percussion. No rales, rhonchi or wheezes noted. No increased work of breathing, no retractions or nasal flaring. Abdomen/GI: Soft, non-tender, with normal bowel sounds. No distension or tympany. No guarding or rebound. No evidence of tenderness throughout. Back: No spinal tenderness. No costovertebral tenderness. Full range of motion. Skin: Warm, dry with normal turgor. Normal color with no rashes, no lesions, and no evidence of cellulitis. MS/ Extremity: Pulses equal, no cyanosis. Neurovascular intact. Full, normal range of motion. Neuro: Awake and alert, GCS 15, oriented to person, place, time, and situation. Cranial nerves II-XII grossly intact. Motor strength 5/5 in all extremities. Sensory grossly intact. Cerebellar exam normal. Normal gait. Psych: Awake, alert, with orientation to person, place and time. Behavior, mood, and affect are within normal limits. 22:41 Musculoskeletal/extremity: Circulation is intact in all extremities. Sensation intact. Compartment Syndrome exam of affected extremity: is normal. DVT Exam: No signs of deep vein thrombosis. no pain, no swelling, no tenderness, negative Homans' sign noted on exam, no appreciated bluish discoloration, no erythema, no increased warmth. 22:50 ECG was reviewed by the Attending Physician. [facility] Vital Signs: 21:43 BP 189 / 101; Pulse 73; Resp 18 S; Temp 97.3(TE); Pulse Ox 99% on R/A; Weight 92.99 kg ca1 (R); Height 5 ft. 6 in. (167.64 cm) (R); Pain 0/10; 21:49 BP 185 / 96 LA; ca1 23:11 BP 152 / 93; mg2 01/19 00:06 BP 158 / 89; Pulse 65; Resp 16; Pulse Ox 98% ; sf 00:30 BP 134 / 86; Pulse 99; Resp 16; Pulse Ox 97% ; sf 02:27 BP 170 / 89; Pulse 65; Resp 16; Pulse Ox 98% ; sf 03:01 BP 136 / 82; Pulse 69; Resp 18; Temp 98; Pulse Ox 100% on R/A; mg2 01/18 21:43 Body Mass Index 33.09 (92.99 kg, 167.64 cm) ca1 MDM: 01/18 21:59 Patient medically screened. meghann 22:45 HEART Score: History: Slightly Suspicious (0), ECG: Normal (0), Age: > 45 and < 65 meghann years (1), Risk Factors: 1 or 2 risk factors (1), [Hypertension] [+ Family HX] Troponin: < or = 1 x Normal Limit (0), Total Score = 2. The patient was given aspirin in the Emergency Department. The patient's deep vein thrombosis risk score was calculated as follows: Total Score: 0. This patient was found to be at low risk for a deep vein thrombosis by using the Well's assessment criteria. The patient's pulmonary embolism risk score was calculated as follows: Total Score: 0-2 points. This patient was found to be at low risk for a pulmonary embolism by using the Well's assessment criteria. ALEX Risk Score: TOTAL SCORE = 0. Data reviewed: vital signs, nurses notes, lab test result(s), EKG, radiologic studies, plain films. Data interpreted: hospice team lead: rate is 73 beats/min, rhythm is regular, Pulse oximetry: on room air is 99 %. Test interpretation: by ED physician or midlevel provider: ECG, plain radiologic studies. 01/18 22:00 Order name: Basic Metabolic Panel; Complete Time: 22:48 [facility] 01/18 22:00 Order name: CBC with Diff; Complete Time: 22:39 meghann 01/18 22:00 Order name: LFT's; Complete Time: 22:48 01/18 22:00 Order name: Magnesium; Complete Time: 22:48 01/18 22:00 Order name: NT PRO-BNP; Complete Time: 22:48 01/18 22:00 Order name: PT-INR; Complete Time: 22:39 [facility] 01/18 22:00 Order name: Troponin (emerg Dept Use Only); Complete Time: 22:48 [facility] 01/18 22:00 Order name: XRAY Chest (1 view) 01/18 22:00 Order name: EKG; Complete Time: 22:01 [facility] 01/18 22:39 Order name: D-Dimer; Complete Time: 23:08 [facility] 01/18 22:49 Order name: Troponin (emerg Dept Use Only): 1130pm; Complete Time: 23:58 [facility] 01/18 23:09 Order name: CT Chest For PE Angio 01/18 23:09 Order name: US Extremity Venous W Compression Colt 01/18 22:00 Order name: Cardiac monitoring; Complete Time: 22:53 [facility] 01/18 22:00 Order name: EKG - Nurse/Tech; Complete Time: 22:53 [facility] 01/18 22:00 Order name: IV Saline Lock; Complete Time: 22:53 [facility] 01/18 22:00 Order name: Labs collected and sent; Complete Time: 22:53 [facility] 01/18 22:00 Order name: O2 Per Protocol; Complete Time: 22:53 [facility] 01/18 22:00 Order name: O2 Sat Monitoring; Complete Time: 22:53 [facility] 01/18 23:32 Order name: EKG; Complete Time: 23:33 meghann 01/18 23:32 Order name: EKG - Nurse/Tech; Complete Time: 00:12 meghann EC:50 Rate is 57 beats/min. Rhythm is regular. QRS [place] is Normal. ND interval is normal. QRS meghann interval is normal. QT interval is normal. No Q waves. T waves are Normal. No ST changes noted. Clinical impression: Sinus bradycardia and No evidence of ischemia. Interpreted by me. Reviewed by me. Administered Medications: 23:09 Drug: Aspirin Chewable Tablet 324 mg Route: PO; mg2 01/19 02:54 Follow up: Response: No adverse reaction mg2 Disposition: 01/19/21 01:05 Discharged to Home. Impression: Essential (primary) hypertension. - Condition is Stable. - Discharge Instructions: Hypertension, Hypertension, Ophj-hv-[id number], How to Take Your Blood Pressure, [id number], Aspirin and Your Heart, Managing Your Hypertension. - Prescriptions for Bystolic 10 mg Oral tablet - take 1 tablet by ORAL route once daily; 20 tablet. Lisinopril 10 mg Oral Tablet - take 1 tablet by ORAL route once daily; 20 tablet. - Medication Reconciliation Form, Thank You Letter, Antibiotic Education, Prescription Opioid Use form. - Follow up: Private Physician; When: 2 - 3 days; Reason: Recheck today's complaints, Continuance of care, Re-evaluation by your physician. Follow up: Claudio Diehl; When: 2 - 3 days; Reason: Recheck today's complaints, Continuance of care, Re-evaluation by your physician. - Problem is new. - Symptoms have improved. Signatures: Dispatcher [employer] EDMS Ayad Leon MD MD cha Gardose, Michele, RN RN mg2 Raine Reilly RN RN ca1 Corrections: (The following items were deleted from the chart) 03:02 01:05 01/19/2021 01:05 Discharged to Home. Impression: Essential (primary) mg2 hypertension. Condition is Stable. Discharge Instructions: Hypertension, Hypertension, [id number], How to Take Your Blood Pressure, Xeci-zn-[id number], Aspirin and Your Heart, Managing Your Hypertension. Prescriptions for Bystolic 10 mg Oral tablet - take 1 tablet by ORAL route once daily; 20 tablet, Lisinopril 10 mg Oral Tablet - take 1 tablet by ORAL route once daily; 20 tablet. and Forms are Medication Reconciliation Form, Thank You Letter, Antibiotic Education, Prescription Opioid Use. Follow up: Private Physician; When: 2 - 3 days; Reason: Recheck today's complaints, Continuance of care, Re-evaluation by your physician. Follow up: Claudio Diehl; When: 2 - 3 days; Reason: Recheck today's complaints, Continuance of care, Re-evaluation by your physician. Problem is new. Symptoms have improved. meghann
--- NOTE | 2021-01-19 01:06 | ER ---
Nurse's Notes [facility] Name: Sommer Thibodeaux Age: 60 yrs Sex: Female : 1960 Arrival Date: 01/18/2021 Time: 21:42 Bed 15 Private MD: Diagnosis: Essential (primary) hypertension Presentation: 01/18 21:43 Chief complaint: Patient states: BP was high at home at SBP 165. Stopped taking new BP ca1 meds and switched to old BP meds x 2 days. Reports a little headache. Reports R arm and R shoulder pain. Coronavirus screen: Client denies travel out of the [place] in the last 14 days. At this time, the client does not indicate any symptoms associated with coronavirus-19. Ebola Screen: Patient negative for fever greater than or equal to 101.5 degrees Fahrenheit, and additional compatible Ebola Virus Disease symptoms Patient denies exposure to infectious person. Patient denies travel to an Ebola-affected area in the 21 days before illness onset. No symptoms or risks identified at this time. Initial Sepsis Screen: Does the patient meet any 2 criteria? No. Patient's initial sepsis screen is negative. Does the patient have a suspected source of infection? No. Patient's initial sepsis screen is negative. Risk Assessment: Do you want to hurt yourself or someone else? Patient reports no desire to harm self or others. Onset of symptoms was January 18, 2021. 21:43 Method Of Arrival: Ambulatory ca1 21:43 Acuity: VICTORIA 2 ca1 Triage Assessment: 01/19 03:02 General: Behavior is calm. mg2 Historical: - Allergies: 01/18 21:49 No Known Allergies; ca1 - PMHx: 21:49 Hypertension; ca1 - PSHx: 21:49 Lithotripsy; ca1 - Immunization history:: Flu vaccine is up to date. - Social history:: Smoking status: Patient denies any tobacco usage or history of. Screenin:11 Abuse screen: Denies threats or abuse. Denies injuries from another. Nutritional mg2 screening: No deficits noted. Tuberculosis screening: No symptoms or risk factors identified. Fall Risk IV access (20 points). Assessment: 22:15 General: Appears in no apparent distress. comfortable. Pain: Complains of pain in right mg2 arm. Neuro: Level of Consciousness is awake, alert, obeys commands, Oriented to person, place, time, situation. Cardiovascular: Capillary refill < 3 seconds Patient's skin is warm and dry. Respiratory: Airway is patent Respiratory effort is even, unlabored, Respiratory pattern is regular, symmetrical. GI: No deficits noted. : No signs and/or symptoms were reported regarding the genitourinary system. EENT: No deficits noted. Derm: Skin is intact, is healthy with good turgor, Skin is pink, warm \T\ dry. normal. Musculoskeletal: Circulation, motion, and sensation intact. Capillary refill < 3 seconds. 01/19 00:00 Reassessment: Patient appears in no apparent distress at this time. Patient and/or sf family updated on plan of care and expected duration. Pain level reassessed. Patient is alert, oriented x 3, equal unlabored respirations, skin warm/dry/pink. Patient denies pain at this time. Vital Signs: 01/18 21:43 BP 189 / 101; Pulse 73; Resp 18 S; Temp 97.3(TE); Pulse Ox 99% on R/A; Weight 92.99 kg ca1 (R); Height 5 ft. 6 in. (167.64 cm) (R); Pain 0/10; 21:49 BP 185 / 96 LA; ca1 23:11 BP 152 / 93; mg2 01/19 00:06 BP 158 / 89; Pulse 65; Resp 16; Pulse Ox 98% ; sf 00:30 BP 134 / 86; Pulse 99; Resp 16; Pulse Ox 97% ; sf 02:27 BP 170 / 89; Pulse 65; Resp 16; Pulse Ox 98% ; sf 03:01 BP 136 / 82; Pulse 69; Resp 18; Temp 98; Pulse Ox 100% on R/A; mg2 01/18 21:43 Body Mass Index 33.09 (92.99 kg, 167.64 cm) ca1 ED Course: 01/18 21:42 Patient arrived in ED. ca1 21:48 Triage completed. ca1 21:49 Arm band placed on right wrist. ca1 21:59 Ayad Leon MD is Attending Physician. meghann 22:00 Jhon Whitfield RN is Primary Nurse. mg2 22:15 Inserted saline lock: 20 gauge in left antecubital area, using aseptic technique. Blood mg2 collected. 22:50 XRAY Chest (1 view) In Process Unspecified. EDMS 23:11 Patient has correct armband on for positive identification. mg2 23:11 No provider procedures requiring assistance completed. mg2 01/19 00:06 EKG done, by ED staff, reviewed by Ayad Leon MD. sf 00:12 CT Chest For PE Angio In Process Unspecified. EDMS 01:05 Claudio Diehl MD is Referral Physician. meghann 02:22 US Extremity Venous W Compression Colt In Process Unspecified. EDMS 03:01 IV discontinued, intact, bleeding controlled, No redness/swelling at site. Pressure mg2 dressing applied. Administered Medications: 01/18 23:09 Drug: Aspirin Chewable Tablet 324 mg Route: PO; mg2 01/19 02:54 Follow up: Response: No adverse reaction mg2 Outcome: 01:05 Discharge ordered by . meghann 03:01 Discharged to home ambulatory. mg2 03:01 Condition: stable 03:01 Discharge instructions given to patient, Instructed on discharge instructions, follow up and referral plans. medication usage, Demonstrated understanding of instructions, follow-up care, medications, Prescriptions given X 2. 03:02 Patient left the ED. mg2 Signatures: Dispatcher [employer] Ayad De Leon MD MD cha Gardose, Michele, RN RN mg2 Raine Reilly RN RN ca1 Raphael Pierce RN RN sf Corrections: (The following items were deleted from the chart) 01/18 21:49 21:43 Acuity: VICTORIA 3 ca1 ca1
--- NOTE | 2021-01-19 09:07 | RAD REPORT ---
EXAM DESCRIPTION: USExtrem Venous W Compress Bil01/19/2021 2:23 am CLINICAL HISTORY: Leg swelling COMPARISON: none FINDINGS: The common femoral, superficial femoral, popliteal and posterior tibial veins bilaterally are compressible and demonstrate augmentation. Doppler demonstrates good flow. IMPRESSION: No evidence of deep venous thrombosis involving either lower extremity.
--- NOTE | 2021-01-19 09:32 | RAD REPORT ---
EXAM DESCRIPTION: Dori Single View01/18/2021 10:50 pm CLINICAL HISTORY: Cough COMPARISON: November 2020 FINDINGS: The lungs appear clear of acute infiltrate. The heart is borderline enlarged IMPRESSION: No acute abnormalities displayed
--- NOTE | 2021-01-19 13:44 | RAD REPORT ---
EXAM DESCRIPTION: CT - Chest For Pe Angio - 01/19/2021 6:47 am COMPARISON: None. CLINICAL HISTORY: [facility] MAIN CHEST PAIN TECHNIQUE: CT images through the chest with IV contrast using the pulmonary embolus protocol. Multip lanar reformats. Automated exposure control was utilized on this examination as a dose lowering mckenna hnique. FINDINGS: Pulmonary arteries and vascular: Diagnostic quality bolus. No filling defects. Heart and mediastinum: Heart size is normal. No lymphadenopathy. Thyroid gland: Visualized portions are normal. Lungs: Clear. Airways: No filling defects. No bronchiectasis. Pleura: No pneumothorax. No significant pleural effusion. Subphrenic structures: Small hiatal hernia. Musculoskeletal and soft tissues: Within normal limits for age. IMPRESSION: 1. No evidence of pulmonary embolus or other acute chest process. 2. Small hernia. Electronically signed by: Chris Parker MD 01/19/2021 12:19 AM CDT Due to temporary technical issues with the PACS/Fluency reporting system, reports are being signed by the in house radiologists without review as a courtesy to insure prompt reporting. The interpreting radiologist is fully responsible for the content of the report.
[2021-01-19 16:04] VITALS: BP 136/82; TEMP 98; O2SAT 100
== END 2021-01-19 03:02 | disposition home or self-care (01) ==
LOC: ER 21:34
DX: I10 Essential (primary) hypertension (principal); R07.9 Chest pain, unspecified; M79.621 Pain in right upper arm
CPT/HCPCS: 93005 ×2; 85025; 80048; 36415; 83735; 85610; 85379; 80076; 84484 ×2; 83880; 71275; 71045; 93970; 99284; Q9967

== ENCOUNTER 2021-02-01 20:10 | Emergency (ER) | payer BC ==
--- NOTE | 2021-02-02 00:42 | EDPHYS ---
Physician Documentation [facility] Name: Sommer Thibodeaux Age: 60 yrs Sex: Female : 1960 Arrival Date: 02/01/2021 Time: 20:26 Bed 24 Private MD: ED Physician Dimitri Brito HPI: 02/01 22:13 This 60 yrs old Black Female presents to ER via Ambulatory with complaints of Feels mh7 like medications are stuck in throat. 22:13 The patient or guardian reports the patient has a suspected foreign body, of the mh7 throat, that has been ingested. The reported likely foreign body is pills. Onset: The symptoms/episode began/occurred this morning, today. Current symptoms: foreign body sensation. Treatment Prior to Arrival: none. States that she took her usual medications four tablets this morning than felt as if medications got stuck in her throat. She has been able to eat and drink without difficulty since then. Denies any chest pain, abdominal pain, SOB, fever, cough, or other complaints.. Historical: - Allergies: 20:31 No Known Allergies; ca1 - PMHx: 20:31 Hypertension; ca1 - PSHx: 20:31 Lithotripsy; ca1 - Immunization history:: Client reports receiving the 2nd dose of the Covid vaccine, Client reports receiving the 1st dose of the Covid vaccine, Flu vaccine is up to date. - Social history:: Smoking status: Patient denies any tobacco usage or history of. ROS: 22:13 Constitutional: Negative for fever, chills, and weight loss, Eyes: Negative for injury, mh7 pain, redness, and discharge, Neck: Negative for injury, pain, and swelling, Cardiovascular: Negative for chest pain, palpitations, and edema, Respiratory: Negative for shortness of breath, cough, wheezing, and pleuritic chest pain, Abdomen/GI: Negative for abdominal pain, nausea, vomiting, diarrhea, and constipation, Back: Negative for injury and pain, : Negative for injury, bleeding, discharge, and swelling, MS/Extremity: Negative for injury and deformity, Skin: Negative for injury, rash, and discoloration, Neuro: Negative for headache, weakness, numbness, tingling, and seizure, Psych: Negative for depression, anxiety, suicide ideation, homicidal ideation, and hallucinations, Allergy/Immunology: Negative for hives, rash, and allergies, Endocrine: Negative for neck swelling, polydipsia, polyuria, polyphagia, and marked weight changes, Hematologic/Lymphatic: Negative for swollen nodes, abnormal bleeding, and unusual bruising. Exam: 22:13 Constitutional: This is a well developed, well nourished patient who is awake, alert, mh7 and in no acute distress. Head/Face: Normocephalic, atraumatic. Eyes: Pupils equal round and reactive to light, extra-ocular motions intact. Lids and lashes normal. Conjunctiva and sclera are non-icteric and not injected. Cornea within normal limits. Periorbital areas with no swelling, redness, or edema. ENT: Nares patent. No nasal discharge, no septal abnormalities noted. Tympanic membranes are normal and external auditory canals are clear. Oropharynx with no redness, swelling, or masses, exudates, or evidence of obstruction, uvula midline. Mucous membranes moist. Neck: Trachea midline, no thyromegaly or masses palpated, and no cervical lymphadenopathy. Supple, full range of motion without nuchal rigidity, or vertebral point tenderness. No Meningismus. Chest/axilla: Normal chest wall appearance and motion. Nontender with no deformity. No lesions are appreciated. Cardiovascular: Regular rate and rhythm with a normal S1 and S2. No gallops, murmurs, or rubs. Normal PMI, no JVD. No pulse deficits. Respiratory: Lungs have equal breath sounds bilaterally, clear to auscultation and percussion. No rales, rhonchi or wheezes noted. No increased work of breathing, no retractions or nasal flaring. Abdomen/GI: Soft, non-tender, with normal bowel sounds. No distension or tympany. No guarding or rebound. No evidence of tenderness throughout. Back: No spinal tenderness. No costovertebral tenderness. Full range of motion. Skin: Warm, dry with normal turgor. Normal color with no rashes, no lesions, and no evidence of cellulitis. MS/ Extremity: Pulses equal, no cyanosis. Neurovascular intact. Full, normal range of motion. Neuro: Awake and alert, GCS 15, oriented to person, place, time, and situation. Cranial nerves II-XII grossly intact. Motor strength 5/5 in all extremities. Sensory grossly intact. Cerebellar exam normal. Normal gait. Psych: Awake, alert, with orientation to person, place and time. Behavior, mood, and affect are within normal limits. Vital Signs: 20:26 BP 169 / 95; Pulse 71; Resp 16 S; Temp 97.7(TE); Pulse Ox 100% on R/A; Weight 92.08 kg ca1 (R); Height 5 ft. 6 in. (167.64 cm) (M); Pain 0/10; 22:30 BP 159 / 96; Pulse 77; Resp 16; Pulse Ox 100% on R/A; zb 02/02 00:30 BP 132 / 63; Pulse 58; Resp 16; Pulse Ox 100% on R/A; zb 02/01 20:26 Body Mass Index 32.76 (92.08 kg, 167.64 cm) ca1 MDM: 00:39 Data reviewed: vital signs, nurses notes, EKG, radiologic studies, plain films. Data [facility] interpreted: Pulse oximetry: on room air is 100 %. Interpretation: normal. Counseling: I had a detailed discussion with the patient and/or guardian regarding: the historical points, exam findings, and any diagnostic results supporting the discharge/admit diagnosis, radiology results, the need for outpatient follow up, to return to the emergency department if symptoms worsen or persist or if there are any questions or concerns that arise at home. Response to treatment: the patient's symptoms have markedly improved after treatment. 00:[address] [facility] 02/01 21:59 Order name: Neck Soft Tissue XRAY [facility] 02/01 21:59 Order name: Chest Single View XRAY [facility] 02/01 20:34 Order name: EKG; Complete Time: 20:35 ca1 02/01 20:34 Order name: EKG - Nurse/Tech; Complete Time: 20:40 [facility] Administered Medications: No medications were administered Disposition: 02/02/21 00:41 Discharged to Home. Impression: Foreign Body Sensation, throat. - Condition is Stable. - Discharge Instructions: Swallowed Foreign Body, Adult, [id number]. - Medication Reconciliation Form, Thank You Letter, Antibiotic Education, Prescription Opioid Use form. - Follow up: Private Physician; When: 1 - 2 days; Reason: Worsening of condition, Recheck today's complaints, Continuance of care, Re-evaluation by your physician. Follow up: Willy Stewart MD; When: 1 - 2 days; Reason: Worsening of condition, Recheck today's complaints. - Problem is new. - Symptoms have improved. Signatures: Dispatcher [employer] Indy Shepard RN RN ea Acob, Cheryl, RN RN ca1 Holmes, Maurice, MD MD mh7 Corrections: (The following items were deleted from the chart) 01:07 00:41 02/02/2021 00:41 Discharged to Home. Impression: Foreign Body Sensation, throat. ea Condition is Stable. Forms are Medication Reconciliation Form, Thank You Letter, Antibiotic Education, Prescription Opioid Use. Follow up: Private Physician; When: 1 - 2 days; Reason: Worsening of condition, Recheck today's complaints, Continuance of care, Re-evaluation by your physician. Follow up: Willy Stewart; When: 1 - 2 days; Reason: Worsening of condition, Recheck today's complaints. Problem is new. Symptoms have improved. mh7
--- NOTE | 2021-02-02 00:42 | ER ---
Nurse's Notes [facility] Name: Sommer Thibodeaux Age: 60 yrs Sex: Female : 1960 Arrival Date: 02/01/2021 Time: 20:26 Bed 24 Private MD: Diagnosis: Foreign Body Sensation, throat Presentation: 02/01 20:26 Chief complaint: Patient states: This morning I took my morning medications which were ca1 4 pills, took them all at once but they seem or one may have not gone down all the way. It feels like something is stuck in my throat (pointing at upper sternal area) since then. Ate lunch, dinner but I still feel something is sitting there. Denies difficulty swallowing. Denies pain. Coronavirus screen: Client denies travel out of the [place] in the last 14 days. At this time, the client does not indicate any symptoms associated with coronavirus-19. Ebola Screen: Patient negative for fever greater than or equal to 101.5 degrees Fahrenheit, and additional compatible Ebola Virus Disease symptoms Patient denies exposure to infectious person. Patient denies travel to an Ebola-affected area in the 21 days before illness onset. No symptoms or risks identified at this time. Initial Sepsis Screen: Does the patient meet any 2 criteria? No. Patient's initial sepsis screen is negative. Does the patient have a suspected source of infection? No. Patient's initial sepsis screen is negative. Risk Assessment: Do you want to hurt yourself or someone else? Patient reports no desire to harm self or others. Onset of symptoms was February 01, 2021. 20:26 Method Of Arrival: Ambulatory ca1 20:26 Acuity: VICTORIA 3 ca1 Historical: - Allergies: 20:31 No Known Allergies; ca1 - PMHx: 20:31 Hypertension; ca1 - PSHx: 20:31 Lithotripsy; ca1 - Immunization history:: Client reports receiving the 2nd dose of the Covid vaccine, Client reports receiving the 1st dose of the Covid vaccine, Flu vaccine is up to date. - Social history:: Smoking status: Patient denies any tobacco usage or history of. Screenin:56 Abuse screen: Denies threats or abuse. Denies injuries from another. Nutritional zb screening: No deficits noted. Tuberculosis screening: No symptoms or risk factors identified. Fall Risk None identified. Assessment: 21:55 General: Appears in no apparent distress. uncomfortable. Pain: Complains of pain in zb neck Quality of pain is described as pressure. Neuro: Level of Consciousness is awake, alert, obeys commands, Oriented to person, place, time, situation. Cardiovascular: Patient's skin is warm and dry. Respiratory: Airway is patent Respiratory effort is even, unlabored, Respiratory pattern is regular, symmetrical, Denies cough, shortness of breath labored breathing, pain with respiration, pain with cough. GI: Abdomen is round. Derm: Skin is intact, is healthy with good turgor, Skin is normal, Skin temperature is warm. Musculoskeletal: Range of motion: intact in all extremities. 21:57 Reassessment: ecp at bedside. zb 23:16 Reassessment: patient given soda to see if it help throat per MD. patient tolerated zb well. 02/02 00:29 Reassessment: notified provider no changes after drinking soda. MD aware. notified zb patient we are waiting on result. provided comfort measures. Vital Signs: 02/01 20:26 BP 169 / 95; Pulse 71; Resp 16 S; Temp 97.7(TE); Pulse Ox 100% on R/A; Weight 92.08 kg ca1 (R); Height 5 ft. 6 in. (167.64 cm) (M); Pain 0/10; 22:30 BP 159 / 96; Pulse 77; Resp 16; Pulse Ox 100% on R/A; zb 02/02 00:30 BP 132 / 63; Pulse 58; Resp 16; Pulse Ox 100% on R/A; zb 02/01 20:26 Body Mass Index 32.76 (92.08 kg, 167.64 cm) ca1 ED Course: 02/01 20:26 Patient arrived in ED. ca1 20:30 Triage completed. ca1 20:31 Arm band placed on right wrist. ca1 21:44 Dimitri Brito MD is Attending Physician. 7 21:45 Rosaura Nicole, BELÉN is Primary Nurse. zb 21:56 Patient has correct armband on for positive identification. Bed in low position. Call zb light in reach. Side rails up X 1. Adult w/ patient. Pulse ox on. NIBP on. Door closed. Noise minimized. 22:29 Neck Soft Tissue XRAY In Process Unspecified. EDMS 22:29 Chest Single View XRAY In Process Unspecified. EDMS 02/02 00:40 Willy Stewart MD is Referral Physician. fernandez Administered Medications: No medications were administered Outcome: 00:41 Discharge ordered by . fernandez 01:07 Patient left the ED. vandana Signatures: Dispatcher [employer] EDMS Indy Kline RN RN ea Acob, Cheryl, RN RN Dimitri Rubalcava MD MD mh7 Brown, Zipporah, RN RN zb Corrections: (The following items were deleted from the chart) 02/01 20:32 20:26 Chief complaint: Patient states: This morning I took my morning medications which ca1 were 4 pills, took them all at once but they seem or once may have not gone down all the way. It feels like something is stuck in my throat (pointing at upper sternal area) since then. Ate lunch, dinner but I still feel something is sitting there. Denies difficulty swallowing. ca1 20:32 20:26 Acuity: VICTORIA 4 ca1 ca1
[2021-02-02 01:55] VITALS: TEMP 97.7; O2SAT 100
[2021-02-02 01:57] VITALS: BP 132/63
--- NOTE | 2021-02-02 21:12 | RAD REPORT ---
EXAM DESCRIPTION: RAD - Neck Soft Tissue - 02/01/2021 10:33 pm CLINICAL HISTORY: 60 years, Female, FORIEGN BODY COMPARISON: None. FINDINGS: 2 X-ray views of the soft tissue neck (frontal and lateral views) were performed. There is normal patency of the airway. The base of the tongue, adenoids, epiglottis demonstrate to be normal. No definitive radiopaque foreign body is seen. The vocal cords demonstrate to be within normal limit s. Significant degenerative changes with anterior osteophyte complex are noted C4/C5. IMPRESSION: Normal soft tissue neck no definitive radiopaque foreign body is identified. Electronically signed by: Dimitri Mejia MD 02/01/2021 11:52 PM CDT Due to temporary technical issues with the PACS/Fluency reporting system, reports are being signed by the in house radiologists without review as a courtesy to insure prompt reporting. The interpreting radiologist is fully responsible for the content of the report.
--- NOTE | 2021-02-02 21:13 | RAD REPORT ---
EXAM DESCRIPTION: RAD - Chest Single View - 02/01/2021 10:33 pm CLINICAL HISTORY: 60 years, Female, foreign body sensation COMPARISON: None. FINDINGS: Single view of the chest was obtained portable. No prior films are available for compariso n. The cardiomediastinal silhouette demonstrate to be unremarkable. The heart is not enlarged. Th e thoracic aorta is mildly tortuous. The lung volume is slightly decreased. Costophrenic angles are s harp. No areas of consolidation or masses are seen. No definitive radiopaque foreign body identifie d. The rest of the soft tissue and bony structures demonstrate to be unremarkable. IMPRESSION: NO ACUTE CARDIOPULMONARY DISEASE SEEN. Electronically signed by: Dimitri Mejia MD 02/01/2021 11:50 PM CDT Due to temporary technical issues with the PACS/Fluency reporting system, reports are being signed by the in house radiologists without review as a courtesy to insure prompt reporting. The interpreting radiologist is fully responsible for the content of the report.
== END 2021-02-02 01:07 | disposition home or self-care (01) ==
LOC: ER 20:10
DX: R09.89 Other specified symptoms and signs involving the circulatory and respiratory systems (principal); I10 Essential (primary) hypertension
CPT/HCPCS: 70360; 71045; 93005; 99283

== ENCOUNTER 2022-06-24 12:27 | Emergency (ER) | payer BC ==
--- OUTSIDE RECORDS SUMMARY | 2022-06-24 12:31 | XMS REPORT | Continuity of Care Document ---
:1960 Author Organization [facility] t Address [address] [place] [address] Care Team Providers Name Role Phone BHAVNA MARIN Primary Care Physician Unavailable MAKI POSEY Attending Clinician Unavailable Bhavna Marin Attending Clinician Maki Posey MD Attending Clinician Doctor Unassigned, [place] Attending Clinician Unavailable Bhavna Marin MD Attending Clinician Hussein Lowe Attending Clinician URSULA HULL Attending Clinician Unavailable JAN LOMELI Attending Clinician Unavailable BHAVNA MARIN Attending Clinician Unavailable GLADYS PATEL I Attending Clinician Unavailable Lab, Adc Fam Pob I Attending Clinician Unavailable Chuck Attending Clinician Unavailable MAKI POSEY Admitting Clinician Unavailable Chuck Admitting Clinician Unavailable Payers Payer Name Policy Type Policy Number Effective Date Expiration Date Phong siu [employer] [facility] [id number] 2018 00:00:00 [employer] [facility] [id number] 2018 00:00:00 [place] [id number] 2018 00:00:00 Problems Condition Condition Condition Status Onset Resolution Last Treating Co mments Source Name Details Category Date Date Treatment Clinician Date Paresthesi Paresthesi Disease Active M ethodi a a 06-10 [facility] 00:00: Hospita 00 l Thiamin Thiamin Disease Active [facility] deficiency deficiency 06-10 st 00:00: Hospita 00 l Family Family Disease Active Overview: Univer s history of history of 03-27 Formattin ity of breast breast 00:00: g of this [place] cancer cancer 00 note Medical might be Branch different from the original. Sister diagnosed at age 65 Gastroesop Gastroesop Disease Active M ethodi hageal hageal 06-23 st reflux reflux 00:00: Hospita disease disease 00 l Vitamin D Vitamin D Disease Active Met hodi deficiency deficiency 06-23 st 00:00: Hospita 00 l Pulmonary Pulmonary Disease Active Met hodi hypertensi hypertensi 05-18 st on on 00:00: Hospita 00 l Obesity Obesity Disease Active Methodi (BMI (BMI 03-26 st 30-39.9) 30-39.9) 00:00: Hospit a 00 l Mixed Mixed Disease Active [place] hyperlipid hyperlipid 03-25 He alth emia emia 00:00: 00 Elevated Elevated Disease Active Unive rs CK CK 03-24 ity of 00:00: [place] [address] Medical Branch Neuropathy Neuropathy Disease Active M ethodi involving involving 03-24 st both lower both lower 00:00: Ho spita extremitie extremitie 00 l s s Weight Weight Disease Active Univers loss, loss, 03-08 ity of unint[place] [facility] Hyperchole Hyperchole Disease Active M ethodi sterolemia sterolemia 03-08 st 00:00: Hospita 00 l Essential Essential Disease Active Met hodi hypertensi hypertensi 03-08 st on on 00:00: Hospita 00 l Kidney Kidney Disease Active Methodi stone stone 03-08 st 00:00: Hospita 00 l Prediabete Prediabete Disease Active M ethodi s s 03-08 st 00:00: Hospita 00 l Hyperlipid Hyperlipi Problem Active 2021-10-05 Memoria emia demia 03:09:20 l (disorder) (disorder) He rmann Active Problem 10/05/2021 [facility] Hypertensi Hypertens Problem Active 2021-10-05 Meaghan davila 03:09:20 l disorder, disorder, Herm iggy systemic systemic arterial arterial (disorder) (disorder) Active Problem 10/05/2021 [facility] Allergies, Adverse Reactions, Alerts Allergy Allergy Status Severity Reaction(s) Onset Inactive Treating Comm ents Source Name Type Date Date Clinician NO KNOWN Drug Active Univers ALLERGIE Class ity of S [facility] Branch Family History Family Member Diagnosis Comments Start Date Stop Date Source Other Uterine cancer [facility] Natural sister Cancer [facility] Social History Social Habit Start Date Stop Date Quantity Comments Source Exposure to Not sure University SARS-CoV-2 [facility] (event) Branch History SDOH [facility] Alcohol Std Drinks History SDOH [facility] Alcohol Binge History SDOH [facility] Alcohol Comment Alcohol intake 2022-06-10 2022-06-10 Ex-drinker [facility] 00:00:00 00:00:00 (finding) Hospital Tobacco use and 2021-03-25 2021-03-25 Smokeless tobacco [facility] exposure 00:00:00 00:00:00 non-user History SDOH 2021-03-25 2021-03-25 1 [place] [facility] Alcohol Frequency 00:00:00 00:00:00 Social History 2021-02-07 2021-02-07 [facility] 18:55:18 18:55:18 Sex Ass[birth year] At [birth year] [facility] 00:00:00 00:00:00 [facility] Smoking Status Start Date Stop Date Source Never smoked tobacco [facility] Unknown if ever smoked [facility] Medications Ordered Filled Start Stop Current Ordering Indication Dosage Frequency Signature Comments Components Source Medication Medication Date Date Medication? Clinician (SIG) Name Name aspirin Yes 81mg QD Take 1 Methodi (ECOTRIN) 8-23 tablet (81 st 81 MG 15:06: mg total) Hospita enteric 36 by mouth l coated daily. tablet COQ10, Yes QD Take by Methodi UBIQUINOL, 8-[address] ORAL 15:06: daily. Hospita 36 l ascorbic Yes 500mg QD Take 1 Method i acid, 8-[address] vitamin C, 15:06: (500 mg Hosp storm (ascorbic 36 total) by l acid with mouth blaise hips) daily. 500 MG tablet zinc 50 mg Yes Take by Meth deonte tablet 06-[address] 15:06: Hospita 36 l rosuvastati 0 Yes [id number] 10mg QD Take 1 Methodi n (CRESTOR) - tablet (10 st 10 mg 00:00: mg total) Hospita tablet 00 by mouth l nightly. nebivoloL Yes [id number] 10mg Q.5D Take 1 Me thodi (BYSTOLIC) - tablet (10 st 10 MG 00:00: mg total) Hospita tablet 00 by mouth 2 l (two) times a day. lisinopriL Yes [id number] 20mg Q.5D Take 1 M ethodi (PRINIVIL) 06-10 tablet (20 st 20 mg 00:00: mg total) Hospita tablet 00 by mouth 2 l (two) times a day. ergocalcife Yes [id number] 12574R Q30D Take 1 Methodi rol 06-[address] (VITAMIN 00:00: (50,000 Hospit a D2) 50,000 00 Units l unit total) by capsule mouth every 30 (thirty) days. NEBIVOLOL 0 Yes [id number] TAKE 1 Un terence 10 mg 7-26 TABLET BY ity of tablet 00:00: MOUTH [place] 00 TWICE Medical DAILY Branch NEBIVOLOL 2021-0 Yes [id number] TAKE 1 Un terence 10 mg 7-26 TABLET BY ity of tablet 00:00: MOUTH [place] 00 TWICE Medical DAILY Branch NEBIVOLOL 2021-0 Yes [id number] TAKE 1 Un terence 10 mg 7-26 TABLET BY ity of tablet 00:00: MOUTH [place] 00 TWICE Medical DAILY Branch nebivoloL 0 2021- No 10mg Q.5D Take 1 Metho di (BYSTOLIC) -06-10 tablet (10 st 10 MG 00:00: 00:00 mg total) Hospit a tablet 00 :00 by mouth 2 l (two) times a day. rosuvastati 0 202- No Metho di n (CRESTOR) -10 06-23 st 10 mg 00:00: 00:00 Hospita tablet 00 :00 l multivit/fo 2021-0 Yes Take by Uni vers lic 6- mouth. ity of acid/vit K1 15:27: [place] (ONE-A-DAY 26 [facility] 50 Branch PLUS ORAL) multivit/fo 2021-0 Yes Take by Uni vers lic 6 mouth. ity of acid/vit K1 15:27: (ONE-A-DAY 26 [facility] 50 Branch PLUS ORAL) multivit/fo 2021-0 Yes Take by Uni vers lic 6- mouth. ity of acid/vit K1 15:27: (ONE-A-DAY 26 [facility] 50 Branch PLUS ORAL) multivit/fo 2021-0 Yes Take by Uni vers lic 6- mouth. ity of acid/vit K1 15:27: (ONE-A-DAY [facility] 50 Branch PLUS ORAL) multivit/fo 0 Yes Take by Uni vers lic 6 mouth. ity of acid/vit K1 15:27: [place] (ONE-A-DAY 26 [facility] 50 Branch PLUS ORAL) lisinopriL 2021- No 20mg Q.5D Take 1 Meth deonte (PRINIVIL) 03-20 tablet (20 st 20 mg 00:00: 00:00 mg total) Hospit a tablet 00 :00 by mouth 2 l (two) times a day. ergocalcife Yes TAKE 1 Univ ers rol, 5-13 CAPSULE BY ity of vitamin d2, 00:00: MOUTH [place] 1,250 mcg 00 WEEKLY FOR Medi suellen (50,000 ONE MONTH Branch unit) AND THEN capsule ONCE A MONTH ergocalcife 2021-0 Yes TAKE 1 Univ ers rol, 5-13 CAPSULE BY ity of vitamin d2, 00:00: MOUTH [place] 1,250 mcg 00 WEEKLY FOR Medi suellen (50,000 ONE MONTH Branch unit) AND THEN capsule ONCE A MONTH ergocalcife 2021-0 Yes TAKE 1 Univ ers rol, 5-13 CAPSULE BY ity of vitamin d2, 00:00: MOUTH [place] 1,250 mcg 00 WEEKLY FOR Medi suellen (50,000 ONE MONTH Branch unit) AND THEN capsule ONCE A MONTH ergocalcife 2021-0 Yes TAKE 1 Univ ers rol, 5-13 CAPSULE BY ity of vitamin d2, 00:00: MOUTH [place] 1,250 mcg 00 WEEKLY FOR Medi suellen (50,000 ONE MONTH Branch unit) AND THEN capsule ONCE A MONTH ergocalcife Yes TAKE 1 Univ ers rol, 5-13 CAPSULE BY ity of vitamin d2, 00:00: MOUTH [place] 1,250 mcg 00 WEEKLY FOR Medi suellen (50,000 ONE MONTH Branch unit) AND THEN capsule ONCE A MONTH ergocalcife 2022- No Q30D every 30 M ethodi rol 5-13 08-23 (thirty) st (VITAMIN 00:00: 00:00 days. Hospita D2) 50,000 00 :00 l unit capsule thiamine 2020-10 Yes 100 mg = 1 Mem oria 100 mg oral 2-15 tab, PO, l tablet 14:50: Daily, 0 Gurpreet 00 Refill(s) Famotidine 2020-10 Yes TAKE 1 Memor ia 20 MG Oral 2-15 TABLET BY l Tablet 14:37: MOUTH Gurpreet 00 TWICE DAILY. STOP OMEPRAZOLE rosuvastati 2020-10 Yes 0 Memori a n 10 mg 2-15 Refill(s) l oral tablet 14:37: Supa n 00 aspirin Yes 81mg Take 81 mg Univ ers (ADULT LOW 8-30 by mouth ity o f DOSE 16:03: daily. [place] ASPIRIN) 81 48 Medical mg EC Branch tablet COQ10, Yes Take by Univers UBIQUINOL, 8-30 mouth. ity of ORAL 16:03: [address] aspirin Yes 81mg Take 81 mg Univ ers (ADULT LOW 8-30 by mouth ity o f DOSE 16:03: daily. [place] ASPIRIN) 81 48 Medical mg EC Branch tablet COQ10, Yes Take by Univers UBIQUINOL, 8-30 mouth. ity of ORAL 16:03: [place] [address] Medical Branch aspirin Yes 81mg Take 81 mg Univ ers (ADULT LOW 8-30 by mouth ity o f DOSE 16:03: daily. [place] ASPIRIN) 81 48 Medical mg EC Branch tablet COQ10, Yes Take by Univers UBIQUINOL, 8-30 mouth. ity of ORAL 16:03: [place] [address] Medical Branch aspirin Yes 81mg Take 81 mg Univ ers (ADULT LOW 8-30 by mouth ity o f DOSE 16:03: daily. [place] ASPIRIN) 81 48 Medical mg EC Branch tablet COQ10, 0 Yes Take by Univers UBIQUINOL, 8-30 mouth. ity of ORAL 16:03: [address] aspirin 2020-0 Yes 81mg Take 81 mg Univ ers (ADULT LOW 8-30 by mouth ity o f DOSE 16:03: daily. [place] ASPIRIN) 81 48 Medical mg EC Branch tablet COQ10, 0 Yes Take by Univers UBIQUINOL, 8-30 mouth. ity of ORAL 16:03: [place] [address] Medical Branch nebivoloL Yes [id number] 10mg Take 1 Un terence (BYSTOLIC) 8-30 tablet by ity of 10 mg 00:00: mouth 2 [place] tablet 00 (two) Medical times Branch daily. lisinopriL Yes [id number] 20mg Take 1 U nivers 20 mg 8-30 tablet by ity of tablet 00:00: mouth 2 (two) Medical times Branch daily. rosuvastati Yes [id number] 10mg Take 1 Univers n 10 mg 8-30 tablet by ity of tablet 00:00: mouth at [place] [address] bedtime. Medical Branch famotidine Yes [id number] 20mg Take 1 Univers 20 mg 8-30 tablet by ity of tablet 00:00: mouth 2 (two) Medical times Branch daily. STOP OMEPRAZOLE . nebivoloL Yes [id number] 10mg Take 1 Un terence (BYSTOLIC) 8-30 tablet by ity of 10 mg 00:00: mouth 2 [place] tablet 00 (two) Medical times Branch daily. lisinopriL Yes [id number] 20mg Take 1 U nivers 20 mg 8-30 tablet by ity of tablet 00:00: mouth 2 [place] 00 (two) Medical times Branch daily. rosuvastati 2020- Yes [id number] 10mg Take 1 Univers n 10 mg 8-30 tablet by ity of tablet 00:00: mouth at [place] 00 bedtime. Medical Branch famotidine Yes [id number] 20mg Take 1 Univers 20 mg 8-30 tablet by ity of tablet 00:00: mouth 2 (two) Medical times Branch daily. STOP OMEPRAZOLE . lisinopriL Yes [id number] 20mg Take 1 U nivers 20 mg 8-30 tablet by ity of tablet 00:00: mouth 2 (two) Medical times Branch daily. rosuvastati 0 Yes [id number] 10mg Take 1 Univers n 10 mg 8-30 tablet by ity of tablet 00:00: mouth at [place] bedtime. Medical Branch famotidine Yes [id number] 20mg Take 1 Univers 20 mg 8-30 tablet by ity of tablet 00:00: mouth 2 [place] (two) Medical times Branch daily. STOP OMEPRAZOLE . lisinopriL Yes [id number] 20mg Take 1 U nivers 20 mg 8-30 tablet by ity of tablet 00:00: mouth 2 [place] (two) Medical times Branch daily. rosuvastati Yes [id number] 10mg Take 1 Univers n 10 mg 8-30 tablet by ity of tablet 00:00: mouth at [place] bedtime. Medical Branch famotidine Yes [id number] 20mg Take 1 Univers 20 mg 8-30 tablet by ity of tablet 00:00: mouth 2 [place] (two) Medical times Branch daily. STOP OMEPRAZOLE . lisinopriL Yes [id number] 20mg Take 1 U nivers 20 mg 8-30 tablet by ity of tablet 00:00: mouth 2 [place] (two) Medical times Branch daily. rosuvastati Yes [id number] 10mg Take 1 Univers n 10 mg 8-30 tablet by ity of tablet 00:00: mouth at [place] [address] bedtime. Medical Branch famotidine Yes [id number] 20mg Take 1 Univers 20 mg 8-30 tablet by ity of tablet 00:00: mouth 2 [place] (two) Medical times Branch daily. STOP OMEPRAZOLE . nebivoloL 2021- No [id number] 10mg Take 1 U nivers (BYSTOLIC) 8-30 07-26 tablet by ity of 10 mg 00:00: 00:00 mouth 2 [place] tablet 00 :00 (two) Medical times Branch daily. nebivolol Yes 10 mg = 1 Mem oria 10 MG Oral 6-15 tab, l Tablet 14:57: Daily, 0 Gurpreet [Bystolic] 00 Refill(s) nebivolol 0 Yes 10 mg = 1 Mem oria 10 MG Oral 6-15 tab, l Tablet 14:57: Daily, 0 [place] [Bystolic] 00 Refill(s) omeprazole 0 Yes 20mg Take 20 mg U nivers 20 mg 5-21 by mouth ity of capsule 18:48: as needed. Yung stewart [address] [place] [address] aspirin 0 Yes 81mg Take 81 mg Univ ers (ADULT LOW 5-21 by mouth ity o f DOSE 18:48: daily. [place] ASPIRIN) 81 33 Medical mg EC Branch tablet omeprazole 0 Yes 20mg Take 20 mg U nivers 20 mg 5-21 by mouth ity of capsule 18:48: as needed. Yung stewart [address] [place] [address] aspirin 0 Yes 81mg Take 81 mg Univ ers (ADULT LOW 5-21 by mouth ity o f DOSE 18:48: daily. [place] ASPIRIN) 81 33 Medical mg EC Branch tablet omeprazole 0 Yes 20mg Take 20 mg U nivers 20 mg 5-21 by mouth ity of capsule 18:48: as needed. Yung stewart [address] [place] [address] aspirin 0 Yes 81mg Take 81 mg Univ ers (ADULT LOW 5-21 by mouth ity o f DOSE 18:48: daily. [place] ASPIRIN) 81 33 Medical mg EC Branch tablet omeprazole 0 Yes 20mg Take 20 mg U nivers 20 mg 5-21 by mouth ity of capsule 18:48: as needed. Yung stewart [address] [place] [address] aspirin 0 Yes 81mg Take 81 mg Univ ers (ADULT LOW 5-21 by mouth ity o f DOSE 18:48: daily. [place] ASPIRIN) 81 33 Medical mg EC Branch tablet omeprazole 0 Yes 20mg Take 20 mg U nivers 20 mg 5-21 by mouth ity of capsule 18:48: as needed. Yung stewart [address] [place] [address] aspirin 0 Yes 81mg Take 81 mg Univ ers (ADULT LOW 5-21 by mouth ity o f DOSE 18:48: daily. [place] ASPIRIN) 81 33 Medical mg EC Branch tablet omeprazole 2020-0 Yes 20mg Take 20 mg U nivers 20 mg 5-21 by mouth ity of capsule 18:48: as needed. Yung stewart 33 Medical Branch aspirin 2021-0 Yes 81mg Take 81 mg Univ ers (ADULT LOW 5-21 by mouth ity o f DOSE 18:48: daily. [place] ASPIRIN) 81 33 Medical mg EC Branch tablet omeprazole 0 Yes 20mg Take 20 mg U nivers 20 mg 5-21 by mouth ity of capsule 18:48: as needed. Yung stewart 33 Medical Branch aspirin 0 Yes 81mg Take 81 mg Univ ers (ADULT LOW 5-21 by mouth ity o f DOSE 18:48: daily. [place] ASPIRIN) 81 33 Medical mg EC Branch tablet omeprazole 0 Yes 20mg Take 20 mg U nivers 20 mg 5-21 by mouth ity of capsule 18:48: as needed. Yung stewart 33 Medical Branch aspirin 0 Yes 81mg Take 81 mg Univ ers (ADULT LOW 5-21 by mouth ity o f DOSE 18:48: daily. [place] ASPIRIN) 81 33 Medical mg EC Branch tablet omeprazole 0 Yes 20mg Take 20 mg U nivers 20 mg 5-21 by mouth ity of capsule 18:48: as needed. Yung stewart 33 Medical Branch aspirin 0 Yes 81mg Take 81 mg Univ ers (ADULT LOW 5-21 by mouth ity o f DOSE 18:48: daily. [place] ASPIRIN) 81 33 Medical mg EC Branch tablet rosuvastati Yes [id number] 10mg Take 1 Univers n 10 mg 5-21 tablet by ity of tablet 00:00: mouth at [place] [address] bedtime. Medical REPLACES Branch ATORVASTAT IN. rosuvastati Yes [id number] 10mg Take 1 Univers n 10 mg 5-21 tablet by ity of tablet 00:00: mouth at [place] [address] bedtime. Medical REPLACES Branch ATORVASTAT IN. rosuvastati Yes [id number] 10mg Take 1 Univers n 10 mg 5-21 tablet by ity of tablet 00:00: mouth at [place] [address] bedtime. Medical REPLACES Branch ATORVASTAT IN. rosuvastati Yes [id number] 10mg Take 1 Univers n 10 mg 5-21 tablet by ity of tablet 00:00: mouth at [place] [address] bedtime. Medical REPLACES Branch ATORVASTAT IN. rosuvastati Yes [id number] 10mg Take 1 Univers n 10 mg 5-21 tablet by ity of tablet 00:00: mouth at [place] 00 bedtime. Medical REPLACES Branch ATORVASTAT IN. rosuvastati Yes [id number] 10mg Take 1 Univers n 10 mg 5-21 tablet by ity of tablet 00:00: mouth at [place] 00 bedtime. Medical REPLACES Branch ATORVASTAT IN. rosuvastati Yes [id number] 10mg Take 1 Univers n 10 mg 5-21 tablet by ity of tablet 00:00: mouth at [place] 00 bedtime. Medical REPLACES Branch ATORVASTAT IN. rosuvastati Yes [id number] 10mg Take 1 Univers n 10 mg 5-21 tablet by ity of tablet 00:00: mouth at [place] 00 bedtime. Medical REPLACES Branch ATORVASTAT IN. rosuvastati Yes [id number] 10mg Take 1 Univers n 10 mg 5-21 tablet by ity of tablet 00:00: mouth at [place] 00 bedtime. Medical REPLACES Branch ATORVASTAT IN. VITAMIN 2020-0 Yes 1{tbl} Take 1 Univer s B-1, 5-01 tablet by ity of MONONITRATE 00:00: mouth [place] , 100 mg 00 daily. Medical Tab Branch VITAMIN 2020-0 Yes 1{tbl} Take 1 Univer s B-1, 5-01 tablet by ity of MONONITRATE 00:00: mouth [place] , 100 mg 00 daily. Medical Tab Branch VITAMIN 2020-0 Yes 1{tbl} Take 1 Univer s B-1, 5-01 tablet by ity of MONONITRATE 00:00: mouth [place] , 100 mg 00 daily. Medical Tab Branch VITAMIN 2020-0 Yes 1{tbl} Take 1 Univer s B-1, 5-01 tablet by ity of MONONITRATE 00:00: mouth [place] , 100 mg 00 daily. Medical Tab Branch VITAMIN 1-0 Yes 1{tbl} Take 1 Univer s B-1, 5-01 tablet by ity of MONONITRATE 00:00: mouth [place] , 100 mg 00 daily. Medical Tab Branch VITAMIN 2020-0 Yes 1{tbl} Take 1 Univer s B-1, 5-01 tablet by ity of MONONITRATE 00:00: mouth [place] , 100 mg 00 daily. Medical Tab Branch VITAMIN 2021-0 Yes 1{tbl} Take 1 Univer s B-1, 5-01 tablet by ity of MONONITRATE 00:00: mouth [place] , 100 mg 00 daily. Medical Tab Branch VITAMIN 2020-0 Yes 1{tbl} Take 1 Univer s B-1, 5-01 tablet by ity of MONONITRATE 00:00: mouth [place] , 100 mg 00 daily. Medical Tab Branch VITAMIN 2020-0 Yes 1{tbl} Take 1 Univer s B-1, 5-01 tablet by ity of MONONITRATE 00:00: mouth [place] , 100 mg 00 daily. Medical Tab Branch VITAMIN 2020-0 Yes 1{tbl} Take 1 Univer s B-1, 5-01 tablet by ity of MONONITRATE 00:00: mouth [place] , 100 mg 00 daily. Medical Tab Branch VITAMIN 2020-0 Yes 1{tbl} Take 1 Univer s B-1, 5-01 tablet by ity of MONONITRATE 00:00: mouth [place] , 100 mg 00 daily. Medical Tab Branch VITAMIN 2020-0 Yes 1{tbl} Take 1 Univer s B-1, 5-01 tablet by ity of MONONITRATE 00:00: mouth [place] , 100 mg 00 daily. Medical Tab Branch VITAMIN 2020-0 Yes 1{tbl} Take 1 Univer s B-1, 5-01 tablet by ity of MONONITRATE 00:00: mouth [place] , 100 mg 00 daily. Medical Tab Branch VITAMIN 2020-0 Yes 1{tbl} Take 1 Univer s B-1, 5-01 tablet by ity of MONONITRATE 00:00: mouth [place] , 100 mg 00 daily. Medical Tab Branch thiamine 2020-0 Yes 100mg QD Take 1 Method i 100 MG 5-[address] tablet 00:00: (100 mg Hospita 00 total) by l mouth daily. thiamine 2020-0 Yes 100 mg = 1 Mem oria 100 mg oral 4-30 tab, PO, l tablet 22:48: Daily, X Gurpreet day, # 90 tab, 1 Refill(s), Pharmacy: [facility] #[id number], 167.64, cm, 02/07/21 14:09:00 CDT, Height, 90.455, kg, 02/07/21 14:09:00 CDT, Weight thiamine Yes 100 mg = 1 Mem oria 100 mg oral 4-30 tab, PO, l tablet 22:48: Daily, X Gurpreet day, # 90 tab, 1 Refill(s), Pharmacy: [facility] #[id number], 167.64, cm, 02/07/21 14:09:00 CDT, Height, 90.455, kg, 02/07/21 14:09:00 CDT, Weight gabapentin 0 Yes 100 mg = 1 M emoria 100 MG Oral 4-22 cap, PO, l Capsule 19:51: Bedtime, # Herm iggy 00 30 cap, 1 Refill(s), other gabapentin Yes 100 mg = 1 M emoria 100 MG Oral 4-22 cap, PO, l Capsule 19:51: Bedtime, # Herm iggy 00 30 cap, 1 Refill(s), other Aspirin 0 Yes 81 mg, PO, Parker mihir 4-22 Daily, 0 l 18:52: Refill(s) Aspirin 0 Yes 81 mg, PO, Parker mihir 4-22 Daily, 0 l 18:52: Refill(s) atorvastati 0 Yes 10 mg, PO, Memoria n 4-22 Daily, 0 l 18:51: Refill(s) Lisinopril 0 Yes 20 mg, PO, M emoria 4-22 Daily, 0 l 18:51: Refill(s) atorvastati 0 Yes 10 mg, PO, Memoria n 4-22 Daily, 0 l 18:51: Refill(s) Lisinopril 0 Yes 20 mg, PO, M emoria 4-22 Daily, 0 l 18:51: Refill(s) PARoxetine 2020- No 10mg Take 10 mg Univers 10 mg 02-01 by mouth ity of tablet 00:00: 00:00 at [place] 00 :00 bedtime. Medical Branch PARoxetine 2020-0 2020- No 10mg Take 10 mg Univers 10 mg 4-16 05-21 by mouth ity of tablet 00:00: 00:00 at [place] 00 :00 bedtime. Medical Branch lisinopriL 2021-0 Yes 20mg Take 20 mg U nivers 20 mg 4-13 by mouth 2 ity of tablet 00:00: (two) [place] 00 times Medical daily. Branch lisinopriL 2021-0 Yes 20mg Take 20 mg U nivers 20 mg 4-13 by mouth 2 ity of tablet 00:00: (two) [place] 00 times Medical daily. Branch lisinopriL 2021-0 Yes 20mg Take 20 mg U nivers 20 mg 4-13 by mouth 2 ity of tablet 00:00: (two) [place] 00 times Medical daily. Branch lisinopriL 2021-0 Yes 20mg Take 20 mg U nivers 20 mg 4-13 by mouth 2 ity of tablet 00:00: (two) [place] 00 times Medical daily. Branch lisinopriL 2021-0 Yes 20mg Take 20 mg U nivers 20 mg 4-13 by mouth 2 ity of tablet 00:00: (two) [place] times Medical daily. Branch lisinopriL 2021-0 Yes 20mg Take 20 mg U nivers 20 mg 4-13 by mouth 2 ity of tablet 00:00: (two) [place] 00 times Medical daily. Branch lisinopriL 2021-0 Yes 20mg Take 20 mg U nivers 20 mg 4-13 by mouth 2 ity of tablet 00:00: (two) [place] 00 times Medical daily. Branch lisinopriL 2021-0 Yes 20mg Take 20 mg U nivers 20 mg 4-13 by mouth 2 ity of tablet 00:00: (two) [place] 00 times Medical daily. Branch lisinopriL 2021-0 Yes 20mg Take 20 mg U nivers 20 mg 4-13 by mouth 2 ity of tablet 00:00: (two) [place] 00 times Medical daily. Branch gabapentin 2021-0 2021- No 100mg Take 100 U nivers 100 mg 4-13 05-21 mg by ity of capsule 00:00: 00:00 mouth at [place] 00 :00 bedtime. Medical Branch gabapentin 2021-0 2021- No 100mg Take 100 U nivers 100 mg 4-13 05-21 mg by ity of capsule 00:00: 00:00 mouth at [place] 00 :00 bedtime. Medical Branch ergocalcife Yes TAKE 1 Univ ers rol, 4-05 CAPSULE BY ity of vitamin d2, 00:00: MOUTH [place] 1,250 mcg 00 WEEKLY FOR Medi suellen (50,000 ONE MONTH Branch unit) AND THEN capsule ONCE A MONTH ergocalcife Yes TAKE 1 Univ ers rol, 4-05 CAPSULE BY ity of vitamin d2, 00:00: MOUTH [place] 1,250 mcg 00 WEEKLY FOR Medi suellen (50,000 ONE MONTH Branch unit) AND THEN capsule ONCE A MONTH ergocalcife Yes TAKE 1 Univ ers rol, 4-05 CAPSULE BY ity of vitamin d2, 00:00: MOUTH [place] 1,250 mcg 00 WEEKLY FOR Medi suellen (50,000 ONE MONTH Branch unit) AND THEN capsule ONCE A MONTH ergocalcife Yes TAKE 1 Univ ers rol, 4-05 CAPSULE BY ity of vitamin d2, 00:00: MOUTH [place] 1,250 mcg 00 WEEKLY FOR Medi suellen (50,000 ONE MONTH Branch unit) AND THEN capsule ONCE A MONTH ergocalcife Yes TAKE 1 Univ ers rol, 4-05 CAPSULE BY ity of vitamin d2, 00:00: MOUTH [place] 1,250 mcg 00 WEEKLY FOR Medi suellen (50,000 ONE MONTH Branch unit) AND THEN capsule ONCE A MONTH ergocalcife Yes TAKE 1 Univ ers rol, 4-05 CAPSULE BY ity of vitamin d2, 00:00: MOUTH [place] 1,250 mcg 00 WEEKLY FOR Medi suellen (50,000 ONE MONTH Branch unit) AND THEN capsule ONCE A MONTH ergocalcife Yes TAKE 1 Univ ers rol, 4-05 CAPSULE BY ity of vitamin d2, 00:00: MOUTH [place] 1,250 mcg 00 WEEKLY FOR Medi suellen (50,000 ONE MONTH Branch unit) AND THEN capsule ONCE A MONTH ergocalcife Yes TAKE 1 Univ ers rol, 4-05 CAPSULE BY ity of vitamin d2, 00:00: MOUTH [place] 1,250 mcg 00 WEEKLY FOR Medi suellen (50,000 ONE MONTH Branch unit) AND THEN capsule ONCE A MONTH ergocalcife Yes TAKE 1 Univ ers rol, 4-05 CAPSULE BY ity of vitamin d2, 00:00: MOUTH [place] 1,250 mcg 00 WEEKLY FOR Medi suellen (50,000 ONE MONTH Branch unit) AND THEN capsule ONCE A MONTH atorvastati 2020- No 10mg Take 10 mg Univers n 10 mg 4 05-21 by mouth ity of tablet 00:00: 00:00 every [place] 00 :00 morning. Medical Branch atorvastati 2020- No 10mg Take 10 mg Univers n 10 mg 4-05 05-21 by mouth ity of tablet 00:00: 00:00 every [place] 00 :00 morning. Medical Branch [facility] Yes 10mg Take 10 mg Univers mg tablet 2-23 by mouth 2 ity of 00:00: (two) [place] 00 times Medical daily. Branch [facility] Yes 10mg Take 10 mg Univers mg tablet 2-23 by mouth 2 ity of 00:00: (two) [place] 00 times Medical daily. Branch [facility] Yes 10mg Take 10 mg Univers mg tablet 2-23 by mouth 2 ity of 00:00: (two) [place] 00 times Medical daily. Branch [facility] Yes 10mg Take 10 mg Univers mg tablet 2-23 by mouth 2 ity of 00:00: (two) [place] 00 times Medical daily. Branch [facility] Yes 10mg Take 10 mg Univers mg tablet 2-23 by mouth 2 ity of 00:00: (two) [place] 00 times Medical daily. Branch [facility] Yes 10mg Take 10 mg Univers mg tablet 2-23 by mouth 2 ity of 00:00: (two) [place] 00 times Medical daily. Branch [facility] Yes 10mg Take 10 mg Univers mg tablet 2-23 by mouth 2 ity of 00:00: (two) [place] 00 times Medical daily. Branch [facility] Yes 10mg Take 10 mg Univers mg tablet 2-23 by mouth 2 ity of 00:00: (two) [place] 00 times Medical daily. Branch [facility] Yes 10mg Take 10 mg Univers mg tablet 2-23 by mouth 2 ity of 00:00: (two) [place] 00 times Medical daily. Branch Immunizations Ordered Filled Immunization Date Status Comments [facility] e Immunization Name Name Influenza Virus 2021-09-17 Completed Universit y of Vaccine [facility], 00:00:00 [place] Me dical Preserv and ABX Branch Free 6 MO-64 YRS Influenza Virus 2021-09-17 Completed Universit y of Vaccine [facility], 00:00:00 [place] Me dical Preserv and ABX Branch Free 6 MO-64 YRS Influenza Virus 2021-09-17 Completed Universit y of Vaccine [facility], 00:00:00 [place] Me dical Preserv and ABX Branch Free 6 MO-64 YRS Influenza Virus 2021-09-17 Completed Universit y of Vaccine [facility], 00:00:00 [place] Me dical Preserv and ABX Branch Free 6 MO-64 YRS Influenza Virus 2021-09-17 Completed Universit y of Vaccine [facility], 00:00:00 [place] Me dical Preserv and ABX Branch Free 6 MO-64 YRS Influenza, 2021-09-17 Completed Rastafarian Unspecified 00:00:00 [facility] SARS-COV-2 COVID-19 2021-08-18 Completed Unive rsity of PFIZER VACCINE 00:00:00 [facility] [place] [facility] SARS-COV-2 COVID-19 2021-08-18 Completed Unive rsity of PFIZER VACCINE 00:00:00 [facility] [place] [facility] SARS-COV-2 COVID-19 2021-08-18 Completed Unive rsity of PFIZER VACCINE 00:00:00 [facility] [place] [facility] SARS-COV-2 COVID-19 2021-08-18 Completed Unive rsity of PFIZER VACCINE 00:00:00 [facility] [place] [facility] SARS-COV-2 COVID-19 2021-08-18 Completed Unive rsity of PFIZER VACCINE 00:00:00 [facility] [place] [facility] PFIZER COVID-19 2021-08-18 Completed Rastafarian MRNA VACCINATION 00:00:00 [facility] SARS-COV-2 COVID-19 2021-01-19 Completed Unive rsity of PFIZER VACCINE 00:00:00 [facility] [place] [facility] SARS-COV-2 COVID-19 2021-01-19 Completed Unive rsity of PFIZER VACCINE 00:00:00 [facility] [place] [facility] SARS-COV-2 COVID-19 2021-01-19 Completed Unive rsity of PFIZER VACCINE 00:00:00 [facility] [place] [facility] SARS-COV-2 COVID-19 2021-01-19 Completed Unive rsity of PFIZER VACCINE 00:00:00 [facility] [place] [facility] SARS-COV-2 COVID-19 2021-01-19 Completed Unive rsity of PFIZER VACCINE 00:00:00 [facility] [place] [facility] SARS-COV-2 COVID-19 2021-01-19 Completed Unive rsity of PFIZER VACCINE 00:00:00 [facility] [place] [facility] SARS-COV-2 COVID-19 2021-01-19 Completed Unive rsity of PFIZER VACCINE 00:00:00 [facility] [place] [facility] Branch SARS-COV-2 COVID-19 2021-01-19 Completed Unive rsity of PFIZER VACCINE 00:00:00 [facility] [place] [facility] Branch SARS-COV-2 COVID-19 2021-01-19 Completed Unive rsity of PFIZER VACCINE 00:00:00 [facility] [place] [facility] SARS-COV-2 COVID-19 2021-01-19 Completed Unive rsity of PFIZER VACCINE 00:00:00 [facility] [place] [facility] SARS-COV-2 COVID-19 2021-01-19 Completed Unive rsity of PFIZER VACCINE 00:00:00 [facility] [place] [facility] SARS-COV-2 COVID-19 2021-01-19 Completed Unive rsity of PFIZER VACCINE 00:00:00 [facility] [place] [facility] SARS-COV-2 COVID-19 2021-01-19 Completed Unive rsity of PFIZER VACCINE 00:00:00 [facility] [place] [facility] SARS-COV-2 COVID-19 2021-01-19 Completed Unive rsity of PFIZER VACCINE 00:00:00 [facility] [place] [facility] PFIZER COVID-19 2021-01-19 Completed Rastafarian MRNA VACCINATION 00:00:00 [facility] SARS-COV-2 COVID-19 2020-12-29 Completed Unive rsity of PFIZER VACCINE 00:00:00 [facility] [place] [facility] SARS-COV-2 COVID-19 2020-12-29 Completed Unive rsity of PFIZER VACCINE 00:00:00 [facility] SARS-COV-2 COVID-19 2020-12-29 Completed Unive rsity of PFIZER VACCINE 00:00:00 [facility] SARS-COV-2 COVID-19 2020-12-29 Completed Unive rsity of PFIZER VACCINE 00:00:00 [facility] [place] [facility] SARS-COV-2 COVID-19 2020-12-29 Completed Unive rsity of PFIZER VACCINE 00:00:00 [facility] [place] [facility] SARS-COV-2 COVID-19 2020-12-29 Completed Unive rsity of PFIZER VACCINE 00:00:00 [facility] [place] [facility] SARS-COV-2 COVID-19 2020-12-29 Completed Unive rsity of PFIZER VACCINE 00:00:00 [facility] [place] [facility] SARS-COV-2 COVID-19 2020-12-29 Completed Unive rsity of PFIZER VACCINE 00:00:00 [facility] [place] [facility] SARS-COV-2 COVID-19 2020-12-29 Completed Unive rsity of PFIZER VACCINE 00:00:00 [facility] [place] [facility] SARS-COV-2 COVID-19 2020-12-29 Completed Unive rsity of PFIZER VACCINE 00:00:00 [facility] [place] [facility] SARS-COV-2 COVID-19 2020-12-29 Completed Unive rsity of PFIZER VACCINE 00:00:00 [facility] [place] [facility] SARS-COV-2 COVID-19 2020-12-29 Completed Unive rsity of PFIZER VACCINE 00:00:00 [facility] [place] [facility] SARS-COV-2 COVID-19 2020-12-29 Completed Unive rsity of PFIZER VACCINE 00:00:00 [facility] [place] [facility] SARS-COV-2 COVID-19 2020-12-29 Completed Unive rsity of PFIZER VACCINE 00:00:00 [facility] [place] [facility] PFIZER COVID-19 2020-12-29 Completed [facility]ast[facility]arian MRNA VACCINATION 00:00:00 Hospital Vital Signs Vital Name Observation Time Observation Value Comments Source Systolic blood 2022-03-27 20:14:00 128 mm[Hg] Univer sity of pressure [facility] Diastolic blood 2022-03-27 20:14:00 76 mm[Hg] Unive rsity of pressure [facility] Heart rate 2022-03-27 20:14:00 111 /min [facility] Body temperature 2022-03-27 20:14:00 36.78 Virgen Univ ersity [facility] Respiratory rate 2022-03-27 20:14:00 18 /min Univ ersity [facility] Body height 2022-03-27 20:14:00 167.6 cm [facility] Body weight 2022-03-27 20:14:00 99.338 kg [facility] BMI 2022-03-27 20:14:00 35.35 kg/m2 [facility] Body temperature 2021-03-08 18:47:00 36.78 [facility] 2021-03-08 18:47:00 167.6 cm [facility] Body weight 2021-03-08 18:47:00 87.454 kg [facility] BMI 2021-03-08 18:47:00 31.12 kg/m2 [facility] Systolic blood 2021-03-08 18:43:00 145 mm[Hg] Univer sity of [facility] Diastolic blood 2021-03-08 18:43:00 73 mm[facility]Hg[facility] 2021-03-08 18:43:00 52 /min [facility] Systolic blood 2022-06-10 20:00:00 127 mm[Hg] [facility] pressure Diastolic blood 2022-06-10 20:00:00 78 mm[Hg] [facility] pressure Heart rate 2022-06-10 20:00:00 54 /min [facility] [place] [facility] Respiratory rate 2022-06-10 20:00:00 16 /min [facility] Body height 2022-06-10 20:00:00 167.6 cm [facility] [place] [facility] Body weight 2022-06-10 20:00:00 98.431 kg [facility] [place] [facility] BMI 2022-06-10 20:00:00 35.02 kg/m2 [facility] [place] [facility] Oxygen saturation in 2022-06-10 20:00:00 96 /min [facility] Arterial blood by Pulse oximetry Systolic (mm Hg) 2021-10-02 14:27:00 Parker [facility] Diastolic (mm Hg) 2021-10-02 14:27:00 Mem orial [facility] Heart Rate 2021-10-02 14:27:00 [facility] Respitory Rate 2021-10-02 14:27:00 [facility] Height 2021-10-02 14:27:00 165.1 cm [facility] Weight 2021-10-02 14:27:00 [facility] BMI Calculated 2021-10-02 14:27:00 [facility] Systolic (mm Hg) 2021-04-02 14:43:00 [facility] Diastolic (mm Hg) 2021-04-02 14:43:00 Mem orial [facility] Heart Rate 2021-04-02 14:43:00 [facility] Respitory Rate 2021-04-02 14:43:00 [facility] Height 2021-04-02 14:43:00 167.64 cm [facility] Weight 2021-04-02 14:43:00 [facility] BMI Calculated 2021-04-02 14:43:00 Memori [facility] Systolic (mm Hg) 2021-02-18 18:13:00 [facility] Diastolic (mm Hg) 2021-02-18 18:13:00 Mem [facility] Heart Rate 2021-02-18 18:13:00 [facility] Respitory Rate 2021-02-18 18:13:00 Memori [facility] Height 2021-02-18 18:13:00 170.18 cm [facility] Weight 2021-02-18 18:13:00 [facility] BMI Calculated 2021-02-18 18:13:00 [facility] Systolic (mm Hg) 2021-02-07 18:49:00 Parker [facility] Ugrpreet Diastolic (mm Hg) 2021-02-07 18:49:00 Mem orial [facility] Heart Rate 2021-02-07 18:49:00 [facility] Respitory Rate 2021-02-07 18:49:00 [facility] Height 2021-02-07 18:49:00 167.64 cm [facility] Weight 2021-02-07 18:49:00 [facility] BMI Calculated 2021-02-07 18:49:00 Memori al Gur[facility]reet Procedures Procedure Date / Time Performing Clinician Source Performed LIPID PANEL 2022-06-20 14:53:00 [facility] COMPREHENSIVE METABOLIC 2022-06-20 14:53:00 [facility] PANEL VITAMIN D 25 HYDROXY 2022-06-20 14:53:00 [facility] LEVEL HEMOGLOBIN A1C 2022-06-20 14:53:00 [facility] XR CHEST 2 VW 2022-06-10 21:11:41 [facility] ECG 12-LEAD 2022-06-10 19:41:35 [facility] ASSIGNMENT OF BENEFITS 2022-05-23 19:36:16 Doctor Unassigned, No [facility] Lithotripsy of kidney [facility] Plan of Care Planned Activity Planned Date Details Comments Source Future Scheduled 2022-07-19 IMM Influenza [place] [facility] Test 00:00:00 Seasonal (>/= 19 yrs) [code = IMM Influenza Seasonal (>/= 19 yrs)] Future Scheduled 2022-06-24 HEPATITIS B VACCINES [facility] Test 08:40:37 (1 of 3 - 3-dose series) [code = HEPATITIS B VACCINES (1 of 3 - 3-dose series)] Future Scheduled 2022-06-24 Hepatitis C screening [facility] Test 08:40:37 (procedure) [code = 419026565] Future Scheduled 2022-06-24 Screening for [facility] Test 08:40:37 malignant neoplasm of cervix (procedure) [code = 491760316] Future Scheduled 2022-06-24 BREAST CANCER [facility] Test 08:40:37 SCREENING [code = BREAST CANCER SCREENING] Future Scheduled 2022-06-24 COLONOSCOPY SCREENING [facility] Test 08:40:37 [code = COLONOSCOPY SCREENING] Future Scheduled 2022-06-24 SHINGLES VACCINES (1 [facility] Test 08:40:37 of 2) [code = SHINGLES VACCINES (1 of 2)] Future Scheduled 2022-06-24 COVID-19 VACCINE (4 - Me [facility] Test 08:40:37 Booster for Pfizer series) [code = COVID-19 VACCINE (4 - Booster for Pfizer series)] Future Scheduled 2022-06-24 INFLUENZA VACCINE Method [facility] Test 08:40:37 [code = INFLUENZA VACCINE] Future Scheduled 2021-06-21 COVID-19 Vaccine (3 - [facility] Test 00:00:00 Booster for Pfizer series) [code = COVID-19 Vaccine (3 - Booster for Pfizer series)] Future Scheduled 2010 Screening for [place] [facility] Test 00:00:00 malignant neoplasm of colon (procedure) [code = 287308480] Future Scheduled 2000 [facility] Test 00:00:00 (Yearly) [code = Breast Cancer Scrn (Yearly)] Future Scheduled 1990 Screening for [facility] Test 00:00:00 malignant neoplasm of cervix (procedure) [code = 706612389] Future Scheduled 1990 Screening for [facility] Test 00:00:00 malignant neoplasm of cervix (procedure) [code = 648410255] Future Scheduled 1960 Fluoride Varnish [facility] Test 00:00:00 [code = Fluoride Varnish] Encounters Start End Encounter Admission Attending Care Care Encounter Source Date/Time Date/Time Type Type Clinicians Facility Department ID 2023-03-31 2023-03-31 Outpatient R ADELINA, [facility] [id number] [facility] 08:30:00 08:30:00 MAKI [id number] [facility] 2022-06-20 2022-06-20 Orders Richard, 1.2.840.1 [id number] Methodi 00:00:00 00:00:00 Only Wondiful [address]110.1.[address] 3.430.2.7 Hospit a .3.614440 l .8 2022-06-10 2022-06-10 Office Richard, 1.2.840.1 [id number] Methodi 15:30:00 15:44:47 Visit Wondiful 42648.1.[address] 3.430.2.7 Hospit a .3.643641 l .8 2022-06-10 2022-06-10 Travel 1.2.840.1 1.2.335.053 [id number] Methodi 00:00:00 00:00:[address] 3.430.2.7 0.2.7.3.698 Ho spita .3.668310 084.8 l .8 2022-06-10 2022-06-10 Outpatient RICHARD [facility] [id number] [place] 00:00:00 00:00:00 [address] 2022-06-10 2022-06-10 [facility] [id number] [place] 00:00:00 00:00:00 [place] [address] 2022-05-23 2022-05-23 Outpatient R [facility] [id number] Univers 14:38:07 23:59:00 MAKI ity of [facility] 2022-05-23 2022-05-23 [facility] 1.2.840.114 [id number] Univers 14:38:07 23:59:00 Encounter Maki PARRA 350.1.13.10 ity of [place] 4.2.7.2.686 [place] [facility] [id number] [facility] 800 Branch 2022-05-23 2022-05-23 Outpatient R [facility] [id number] Univers 00:00:00 00:00:00 MAKI [id number] ity [facility] 2022-05-23 2022-05-23 Orders Doctor ARTEAGA 1.2.840.114 [id number] Univers 00:00:00 00:00:00 Only Unassigned, CHAITANYA 350.1.13.10 [facility] 4.2.7.2.686 Hermes as [id number] [facility] 009 Branch 2022-05-10 2022-05-10 Dennis Marin, 1.2.840.1 [id number] Methodi 00:00:00 00:00:[address] 3.430.2.7 Hospit a .3.927837 l .8 2022-05-10 2022-05-10 [facility] 1.2.840.114 [id number] Univers 00:00:00 00:00:00 Wondiful A HEALTH 350.1.13.10 ity of [place] 4.2.7.2.686 Hermes as SUSAN?BLEA [id number] [address] MEDICAL OFFICE BUILDING 2022-04-15 2022-04-15 Travel 1.2.840.1 1.2.455.348 [id number] Methodi 00:00:00 00:00:[address] 3.430.2.7 0.2.7.3.698 Ho spita .3.657674 084.8 l .8 2022-04-12 2022-04-12 [facility]h [facility] 1.2.840.114 [id number] Univers 00:00:00 00:00:00 Bhavna Davis HEALTH 350.1.13.10 it[facility] 4.2.7.2.686 Hermes as SUSAN?BLEA [phone] Ak dical KNEY 044 [facility] OFFICE [facility] 2022-03-27 2022-03-27 Office Ad, [facility] 1.2.840.114 [id number] Univers 15:30:00 15:52:07 Visit Maki Branch [place] 350.1.13.10 ity [facility] 4.2.7.2.686 [place] [id number] Ak dical NAL 134 [facility] 2021-10-02 2021-10-03 Outpatient nullFlavo MNA [id number] Memoria 14:15:00 05:59:59 r Neurology 05 dileep Vázquez 2021-10-02 2021-10-02 Outpatient SONIA LoweMISCHER MHMISCHER [id number] 08:15:00 23:59:59 Hussein 05 Willy 2021-10-02 2021-10-02 Outpatient MHIE MHIE [id number] Memoria 08:15:00 08:15:00 05 dileep Vázquez 2021-10-02 2021-10-02 Outpatient MHIE MHIE [id number] Memoria 08:15:00 08:15:00 05 dileep Vázquez 2021-05-20 2021-05-20 Outpatient KURTIS, [facility] [id number] [place] 00:00:00 00:00:00 URSULA [facility] 2021-05-09 2021-05-09 Outpatient BATDARIANA, [facility] [id number] [place] 00:00:00 00:00:00 [facility] 2021-05-09 2021-05-09 Outpatient [facility] [id number] [place] 00:00:00 00:00:00 [facility] 2021-04-02 2021-04-03 Outpatient nullFlavo MNA [id number] Memoria 14:15:00 04:59:59 r Neurology 04 dileep Vázquez 2021-04-02 2021-04-03 Outpatient nullFlavo MNA [id number] Memoria 14:15:00 04:59:59 r Neurology 04 l Julian Vázquez 2021-04-02 2021-04-02 Outpatient TASNEEM LoweSCHER SONIAMISCHER [id number] 09:15:00 23:59:59 Hussein Zuleika Aguilera 2021-04-02 2021-04-02 Outpatient MHIE IE [id number] Memoria 09:15:00 09:15:00 04 l Gurpreet 2021-04-01 2021-04-01 Outpatient R RICHARD [facility] [id number] Univers 14:30:00 14:30:00 WONDIFUL ity o f [facility] 2021-03-26 2021-03-26 Outpatient R ADELINA [facility] [id number] Univers 15:00:00 15:00:00 MAKI [id number] [facility] 2021-03-26 2021-03-26 Outpatient R ADELINA, [facility] [id number] [facility] 15:00:00 15:00:00 MAKI [facility] 2021-03-25 2021-03-25 Outpatient [facility] [id number] [place] 15:07:49 15:27:33 [facility] 2021-03-25 2021-03-25 Outpatient GLADYS PATEL [facility] [id number] [place] 12:21:45 12:32:17 Health 2021-03-25 2021-03-25 Outpatient KURTIS, [facility] [id number] [place] 11:06:29 12:15:33 [facility] 2021-03-25 2021-03-25 Outpatient DEIDRES, [facility] [id number] [place] 00:00:00 00:00:00 [facility] 2021-03-15 2021-03-15 [facility] 1.2.840.114 [id number] [facility] 00:00:00 00:00:00 Wondiful A Health 350.1.13.10 ity of [place] 4.2.7.2.686 Hermes as Professio [phone] [address] Office [facility] One 2021-03-08 2021-03-08 [employer] [facility], Adc Fam Pob I [facility] 1.2. 840.114 [id number] Univers 14:57:36 15:17:36 Visit Bhavna [facility] 350.1.13.1 0 ity of [place] 4.2.7.2.686 Hermes as Professio [phone] [address] One 2021-03-08 2021-03-08 Outpatient [facility] [id number] Univers 15:00:00 15:00:00 [id number] ity of [facility] 2021-03-08 2021-03-08 Office Richard [facility] 1.2.840.114 [id number] Univers 13:15:14 14:38:44 Visit Wondiful A Health 350.1.13.10 ity of [place] 4.2.7.2.686 Hermes as Professio [phone] [address] One 2021-03-08 2021-03-08 Outpatient R RICHARD [facility] [id number] Univers 13:30:00 13:30:00 WONDIFUL ity o f [facility] 2021-03-08 2021-03-08 Telephone Richard [facility] 1.2.840.114 [id number] Univers 00:00:00 00:00:00 Wondiful A Health 350.1.13.10 ity of [place] 4.2.7.2.686 Hermes as Professio [phone] [address] One 2021-02-28 2021-02-28 Ambulatory nullFlavo MNA [id number] Memoria 18:45:00 18:45:00 Pre-Reg r Neurology 00 l Julian Vázquez 2021-02-28 2021-02-28 Ambulatory nullFlavo MNA [id number] Memoria 18:45:00 18:45:00 Pre-Reg r Neurology 00 l Julian Vázquez 2021-02-28 2021-02-28 Outpatient [facility] [id number] 13:45:00 13:45:00 Hussein Aguilera 2021-02-25 2021-02-25 Outpatient Rutledge_L MMG MMG [id number] [place] 12:04:00 12:04:00 [facility] 2021-02-18 2021-02-19 Outpatient nullFlavo MNA [id number] Memoria 21:15:00 04:59:59 r Neurology 03 l Julain Vázquez 2021-02-18 2021-02-19 Outpatient nullFlavo MNA [id number] Memoria 21:15:00 04:59:59 r Neurology 03 l Julian Vázquez 2021-02-18 2021-02-18 [id number] 16:15:00 23:59:59 Hussein Willy 2021-02-18 2021-02-18 Outpatient MHIE ISSAC [id number] Memoria 16:15:00 16:15:00 03 dileep Vázquez 2021-02-13 2021-02-13 Ambulatory nullFlavo MNA [id number] Memoria 21:00:00 21:00:00 Pre-Reg r Neurology 01 l Julian Vázquez 2021-02-13 2021-02-13 Ambulatory nullFlavo MNA [id number] Memoria 21:00:00 21:00:00 Pre-Reg r Neurology 01 l Julian Vázquez 2021-02-13 2021-02-13 [id number] 16:00:00 16:00:00 Hussein Willy 2021-02-07 2021-02-08 Outpatient nullFlavo MNA [id number] Memoria 19:00:00 04:59:59 r Neurology 02 l Julian Vázquez 2021-02-07 2021-02-08 Outpatient nullFlavo MNA [id number] Memoria 19:00:00 04:59:59 r Neurology 02 l Julian Vázquez 2021-02-07 2021-02-07 [id number] 14:00:00 23:59:59 Hussein Aguilera Results Test Description Test Time Test Comments Results Result Comments Source Comprehensive metabolic panel 2022-06-22 04:21:00 Test Item Value Reference Range Interpretation Comme nts Glucose (test code = 99 mg/dL 65-99 Fastin g reference 2345-7) interval BUN (test code = 3094-0) 18 mg/dL 7-25 Creatinine (test code = 0.84 mg/dL 0.5-1.05 2160-0) eGFR (test code = 8257) See_Comment The eGFR is based on the CKD-EPI 202 1 equation. To ca lculate the new eGFR fr om a previous Creati nine or Cystatin Cresul t, go to [email or web address]://www.kid jim.org/ professionals/k doqi/gfr %[email or web address] [Automated mess age] The system which ge nerated this result tra nsmitted reference range : > OR = 60 mL/min/1.73m 2. The reference range was not used to interpr et this result as normal/abnormal . BUN/creatinine ratio NOT APPLICABLE See_Comment [Aut omated message] (test code = 3097-3) The WSO2 tem which generated this result transmitted ref erence range: 6 - 22 ( calc). The reference r francisco was not used to int erpret this result as normal/abnormal . Sodium (test code = 143 mmol/L 594-805 6673-2) Potassium (test code = 4.3 mmol/L 3.5-5.3 2823-3) Chloride (test code = 110 mmol/L 98-110 2075-0) CO2 (test code = 2027-9) 28 mmol/L 20-32 Calcium (test code = 9.9 mg/dL 8.6-10.4 06480-1) Protein (test code = 6.6 g/dL 6.1-8.1 2885-2) Albumin, S (test code = 4.1 g/dL 3.6-5.1 1751-7) Globulin, total (test See_Comment [Auto mated message] code = 48316-8) The system w [facility] generated this result transmitted ref erence range: 1.9 - 3. 7 g/dL (calc). The ref erence range was not u sed to interpret this result as normal/abnor mal. Albumin/globulin ratio See_Comment [Aut omated message] (test code = 1759-0) The WSO2 tem which generated this result transmitted ref erence range: 1.0 - 2. 5 (calc). The ref erence range was not u sed to interpret this result as normal/abnor mal. Total bilirubin (test 0.3 mg/dL 0.2-1.2 code = 1975-2) Alkaline phosphatase 89 U/L 37-153 (test code = 6768-6) AST (test code = 1920-8) 18 U/L 10-35 ALT (test code = 1742-6) 25 U/L 6-29 BILL (test code = BILL) FASTING:YES FASTING: YES RAC (test code = RAC) Performing Organization Information: Site ID: [id number] Address: [address] [place] [id number] Director: Adis Gonzalez [facility] [id number] 04:21:00 Test Item Value Reference Range Interpretation Comments Cholesterol, total 105 mg/dL See_Comment [Automat ed (test code = 2093-3) message ] The system which generated this result transmitted reference range : <=200. The reference range was not used to interpret this result as normal/abnormal . HDL cholesterol 39 mg/dL See_Comment L [Automated (test code = 2085-9) message ] The system which generated this result transmitted reference range : > OR = 50. The reference range was not used to interpret this result as normal/abnormal . Triglycerides (test 82 mg/dL See_Comment [Automa brayan code = 2571-8) message] The system which generated this result transmitted reference range : <=150. The reference range was not used to interpret this result as normal/abnormal . LDL cholesterol mg/dL (calc) Reference ra nge: calculated (test <100 Desira ble code = 98636-0) range <100 m g/dL for primary prevention; <70 mg/dL for patients with C HD or diabetic patients with > or = 2 CHD risk factors. LDL-C is now calculated using the Juanita calculation, which is a validated novel method providin g better accuracy than the Friedewald equation in the estimation of LDL-C. Donell Stewart S et al. BALJINDER. 2013;310(19): 5556-0562 (http://educati on .Str[employer] .com/faq/YBV596 ) Cholesterol/HDL See_Comment [Automated ratio (test code = message] The 9830-1) system which generated this result transmitted reference range : <5.0 (calc). Th e reference range was not used to interpret this result as normal/abnormal . Non-HDL cholesterol See_Comment For anabell ents with (test code = diabetes plus 1 04992-9) major ASCVD ris k factor, treatin g to a non-HDL-C goal of <100 mg/dL (LDL-C of <70 mg/dL) is considered a therapeutic option. [Automated message] The system which generated this result transmitted reference range : <130 mg/dL (calc). The reference range was not used to interpret this result as normal/abnormal . BILL (test code = FASTING:YES BILL) FASTING: YES RAC (test code = Performing RAC) Organization Information: Site ID: [id number] Name: [facility] Address: [address] [place] [address] Director: Adis Gonzalez Lab Interpretation Abnormal (test code = 03159-6) [facility] [id number] 04:21:00 Test Item Value Reference Interpretation Comments Range Hemoglobin A1C See_Comment H For someone w ithout (test code = known diabetes, a 4548-4) hemoglobin A1c value between 5.7% an d 6.4% is consist ent withprediabetes and should be confi rmed with a follow-u p test. For someo ne with known diab etes, a value <7%indicates that their diabetes is well controlled . N0ytzjdqin shou ld be individualized based on duration ofdiabetes, age , comorbid condit ions, and otherconsiderat ions. This assay resu lt is consistent with an increased risko f diabetes. Curre ntly, no consensus ex ists regarding use ofhemoglobin A1 c for diagnosis of diabetes for children. [Auto mated message] The sy stem which generated this result transmit brayan reference range : <5.7 % of total Hgb. The reference r francisco was not used to interpret this result as normal/abnormal . BILL (test code = FASTING:YES BILL) FASTING: YES RAC (test code = Performing RAC) Organization Information: Site ID: [id number] Name: [facility] Address: [address] [place] [id number] Director: Adis Gonzalez Lab Interpretation Abnormal (test code = 02729-3) [facility] 25 hydroxy [id number] 04:21:00 Test Item Value Reference Range Interpretation Comments Vitamin D, 38 ng/mL 30-100 Vitamin D Statu s 25-hydroxy (test 25-OH Vitam in D: code = 1989-3) Deficiency: < 20 ng/mLInsufficie ncy : 20 - 29 ng/mLOptimal: > or = 30 ng/mL For 25-OH Vitamin D testing on patients on D2-supplementat ion and patients fo r whom quantitati on of D2 and D3 fractions is required, the QuestAssureD(TM )25 -OH VIT D, (D2,D3), LC/MS/ MS is recommended: order code 9288 8 (patients >2yrs).See Note 1 Note 1 For additional information, please refer to http://educatio n.Q uestDiagnostics .co m/faq/EUF621 (T his link is being provided for informational/e lan ational purpose s only.) BILL (test code = FASTING:YES FASTING: BILL) YES RAC (test code = Performing RAC) Organization Information: Site ID: RGA [facility] Address: [address] [place] [id number] Director: Adis Gonzalez [facility] 12 [id number] 01:00:32 Test Item Value Reference Range Interpretation Comments Ventricular rate (test code = 253) Atrial rate (test code = 255) RI interval (test code = 266) QRSD interval (test code = 260) QT interval (test code = 264) QTC interval (test code = 265) P axis 1 (test code = 267) QRS axis 1 (test code = 268) T wave axis (test code = 270) EKG impression (test Sinus code = 273) bradycardia-Otherwise normal ECG-No previous ECGs available-Electronica lly Signed By Bhavna Marin MD ([id number]) on 06/10/2022 8:00:25 PM [facility]
[2022-06-24 13:19] LABS: Urine Blood Trace-intact (Negative); Urine Glucose Negative (Negative); Urine Protein Negative (Negative); Urine Specific Gravity 1.015 (1.005-1.030); Urine pH 6.5 (5.0-7.0)
[2022-06-24] MEDS ORDERED: NA CHLORIDE 0.9% 500 ML ONE (13:34)
--- NOTE | 2022-06-24 13:40 | RAD REPORT ---
EXAM DESCRIPTION: CT - Head Brain Wo Cont - 06/24/2022 1:22 pm CLINICAL HISTORY: dizziness COMPARISON: none TECHNIQUE: All CT scans are performed using dose optimization technique as appropriate and may inclu de automated exposure control or mA/KV adjustment according to patient size. FINDINGS: No intracranial hemorrhage, hydrocephalus or extra-axial fluid collection.No areas of brai n edema or evidence of midline shift. The paranasal sinuses and mastoids are clear. The calvarium is intact. IMPRESSION: No acute intracranial abnormality.
[2022-06-24 13:45] LABS: ALT/SGPT 32 U/L (12-78); AST/SGOT 16 U/L (15-37); Albumin 3.7 g/dL (3.4-5.0); Alkaline Phosphatase 107 U/L (45-117); BUN Blood Urea Nitrogen 15 mg/dL (7-18); Bicarbonate 27 mmol/L (21-32); Bilirubin Total 0.2 mg/dL (0.2-1.0); Glomerular Filtration Rate 73 ml/min (=/>90); Glucose Level 112 mg/dL (74-106); Potassium 3.9 mmol/L (3.5-5.1); Protein, Total 7.4 g/dL (6.4-8.2); Sodium Level 142 mmol/L (136-145)
[2022-06-24 13:50] LABS: Bilirubin Direct < 0.1 mg/dL (0-0.2)
[2022-06-24 13:51] LABS: Absolute Lymphocytes (CBC) 2.4 K/uL (0.7-4.9); Hematocrit 39.6 % (36.0-45.0); Lymphocytes % 37.2 % (15.3-44.8); MCV 91.7 fL (80-100); MPV 11.2 fL (7.6-11.3); RBC Red Blood Cell Count 4.32 M/uL (3.86-4.86)
--- NOTE | 2022-06-24 15:52 | ER ---
Nurse's Notes [facility] Name: Sommer Thibodeaux Age: 61 yrs Sex: Female : 1960 Arrival Date: 06/24/2022 Time: 12:30 Bed 12 Private MD: Diagnosis: Dizziness and giddiness;UTI/ Urinary tract infection, site not specified Presentation: 06/24 12:49 Chief complaint: Patient states: I started feeling lightheaded, dizzy, and having bm7 vision changes since yesterday and then today at 11 it got worse. Coronavirus screen: At this time, the client does not indicate any symptoms associated with coronavirus-19. Ebola Screen: No symptoms or risks identified at this time. Initial Sepsis Screen: Does the patient meet any 2 criteria? No. Patient's initial sepsis screen is negative. Does the patient have a suspected source of infection? No. Patient's initial sepsis screen is negative. Risk Assessment: Do you want to hurt yourself or someone else? Patient reports no desire to harm self or others. Note ERP at bedside to assess. Onset of symptoms was July 13, 2022. 12:49 Method Of Arrival: Ambulatory 7 12:49 Acuity: VICTORIA 3 bm7 Triage Assessment: 12:51 General: Appears in no apparent distress. comfortable, Behavior is calm, cooperative, bm7 appropriate for age. Pain: Complains of pain in forehead. EENT: No deficits noted. No signs and/or symptoms were reported regarding the EENT system. Neuro: Level of Consciousness is awake, alert, obeys commands, Oriented to person, place, time, situation, System Software Developer are equal bilaterally Moves all extremities. Gait is steady, Speech is normal, Facial symmetry appears normal, Pupils are PERRLA, Reports blurred vision headache. Cardiovascular: No deficits noted. Chest pain is denied. Respiratory: No deficits noted. GI: No deficits noted. No signs and/or symptoms were reported involving the gastrointestinal system. Reports nausea. : No deficits noted. No signs and/or symptoms were reported regarding the genitourinary system. Derm: No deficits noted. No signs and/or symptoms reported regarding the dermatologic system. Musculoskeletal: No deficits noted. No signs and/or symptoms reported regarding the musculoskeletal system. Historical: - Allergies: 12:51 No Known Allergies; bm7 - Home Meds: 12:51 lisinopril 10 mg Oral tab 1 tab once daily [Active]; bm7 - PMHx: 12:51 Hypertension; bm7 - PSHx: 12:51 None; bm7 - Immunization history:: Adult Immunizations up to date. - Social history:: Smoking status: Patient denies any tobacco usage or history of. - Family history:: not pertinent. - Hospitalizations: : No recent hospitalization is reported. Screenin:59 Abuse screen: Denies threats or abuse. Denies injuries from another. Nutritional kb3 screening: No deficits noted. Tuberculosis screening: No symptoms or risk factors identified. Fall Risk None identified. Assessment: 13:00 General: Pt ambulatory from lobby to chair for IV start and blood draw. Gait steady, no kb3 ataxia noted. 13:19 General: Pt to CT via WC. kb3 15:56 General: Appears in no apparent distress. comfortable, Behavior is calm, cooperative, kb3 Received care of pt from RN, Pt is sitting comfortably on stretcher, spouse at bedside. No s/so of distress. Pt reports dizziness has resolved at this time. Pain: Denies pain. 15:56 Neuro: No deficits noted. Cardiovascular: Denies chest pain, Heart tones present Pulses kb3 are all present. Rhythm is sinus bradycardia. Respiratory: Breath sounds are clear bilaterally. GI: Patient currently denies abdominal pain, nausea, vomiting. Vital Signs: 12:49 BP 155 / 73; Pulse 52; Resp 16; Temp 97.1(O); Pulse Ox 100% on R/A; Weight 98.43 kg [facility] (R); Height 5 ft. 6 in. (167.64 cm); Pain 0/10; 15:59 BP 141 / 67; Pulse 51; Resp 18; Pulse Ox 98% ; Pain 0/10; kb3 17:00 BP 154 / 82; Pulse 50; Resp 20; Pulse Ox 99% ; kb3 12:49 Body Mass Index 35.02 (98.43 kg, 167.64 cm) [facility] ED Course: 12:30 Patient arrived in ED. mr 12:51 Triage completed. bm7 12:51 Arm band placed on right wrist. bm7 12:54 Yuniel Fuller MD is Attending Physician. rn 13:15 Inserted saline lock: 20 gauge in left antecubital area, using aseptic technique. Blood kb3 collected. 15:01 Michelle Rothman, RN is Primary Nurse. kr3 15:59 Patient has correct armband on for positive identification. Bed in low position. Call kb3 light in reach. 15:59 No provider procedures requiring assistance completed. kb3 17:10 IV discontinued, intact, bleeding controlled, No redness/swelling at site. kb3 Administered Medications: 13:35 Drug: NS 0.9% 500 ml Route: IV; Rate: bolus; Site: left antecubital; kb3 15:00 Follow up: Response: No adverse reaction; IV Status: Completed infusion; IV Intake: kb3 500ml Medication: 15:59 VIS not applicable for this client. kb3 Intake: 15:00 IV: 500ml; Total: 500ml. kb3 Outcome: 15:51 Discharge ordered by . rn 17:10 Discharged to home ambulatory. kb3 17:10 Condition: stable 17:10 Discharge instructions given to patient, family, Instructed on discharge instructions, follow up and referral plans. medication usage, Demonstrated understanding of instructions, follow-up care, medications, Prescriptions given X 1. 17:11 Patient left the ED. kb3 Signatures: CortesLisa pope mr FullerYuniel MD MD rn McCarthy, Brittany RN RN bm7 Michelle Rothman, RN RN kr3 Collette Galicia, RN RN kb3
--- NOTE | 2022-06-24 15:52 | EDPHYS ---
Physician Documentation [facility] Name: Sommer Thibodeaux Age: 61 yrs Sex: Female : 1960 Arrival Date: 06/24/2022 Time: 12:30 Bed 12 Private MD: ED Physician Yuniel Fuller HPI: 06/24 13:15 This 61 yrs old Black Female presents to ER via Ambulatory with complaints of Dizziness.rn 13:15 The patient presents with dizziness, lightheadedness. Onset: The symptoms/episode rn began/occurred yesterday. Modifying factors: The symptoms are alleviated by nothing, the symptoms are aggravated by standing up. Associated signs and symptoms: Pertinent negatives: abdominal pain, chest pain, diaphoresis, focal weakness, head injury, seizure, shortness of breath, vomiting. Severity of symptoms: At their worst the symptoms were mild in the emergency department the symptoms have improved. The patient has not experienced similar symptoms in the past. The patient has not recently seen a physician. Pt reports dizziness that began yesterday, assoc with malaise and fatigue, no fever, no neck stiffness. No focal neuro complaint. Went to work today and felt dizzy again so came in to get checked out. No chest pain or sob. no abd pain. Reports loose stool yesterday, no blood or discoloration. . Historical: - Allergies: 12:51 No Known Allergies; bm7 - Home Meds: 12:51 lisinopril 10 mg Oral tab 1 tab once daily [Active]; bm7 - PMHx: 12:51 Hypertension; bm7 - PSHx: 12:51 None; bm7 - Immunization history:: Adult Immunizations up to date. - Social history:: Smoking status: Patient denies any tobacco usage or history of. - Family history:: not pertinent. - Hospitalizations: : No recent hospitalization is reported. ROS: 13:15 Constitutional: Negative for fever, chills, and weight loss, Eyes: Negative for injury, rn pain, redness, and discharge, Neck: Negative for injury, pain, and swelling, Cardiovascular: Negative for chest pain, palpitations, and edema, Respiratory: Negative for shortness of breath, cough, wheezing, and pleuritic chest pain, Abdomen/GI: Negative for abdominal pain, nausea, vomiting, diarrhea, and constipation, Back: Negative for injury and pain, MS/Extremity: Negative for injury and deformity, Skin: Negative for injury, rash, and discoloration, Neuro: Negative for headache, numbness, tingling, and seizure. Exam: 13:15 Constitutional: This is a well developed, well nourished patient who is awake, alert, rn and in no acute distress. Head/Face: Normocephalic, atraumatic. Eyes: Periorbital areas with no swelling, redness, or edema. ENT: dry MM Cardiovascular: Bradycardic, regular. No pulse deficits. Respiratory: Speaking full sentences, unlabored. No increased work of breathing, no retractions or nasal flaring. Abdomen/GI: Soft, non-tender Skin: Warm, dry MS/ Extremity: Pulses equal, no cyanosis. Neurovascular intact. Full, normal range of motion. Equal circumference. Neuro: Awake and alert, GCS 15, oriented to person, place, time, and situation. Cranial nerves II-XII grossly intact. Motor strength 5/5 in all extremities. Sensory grossly intact. 16:25 ECG was reviewed by the Attending Physician. rn Vital Signs: 12:49 BP 155 / 73; Pulse 52; Resp 16; Temp 97.1(O); Pulse Ox 100% on R/A; Weight 98.43 kg bm7 (R); Height 5 ft. 6 in. (167.64 cm); Pain 0/10; 15:59 BP 141 / 67; Pulse 51; Resp 18; Pulse Ox 98% ; Pain 0/10; kb3 17:00 BP 154 / 82; Pulse 50; Resp 20; Pulse Ox 99% ; kb3 12:49 Body Mass Index 35.02 (98.43 kg, 167.64 cm) bm7 MDM: 12:54 Patient medically screened. rn 15:50 Differential diagnosis: cardiac arrhythmia, generalized weakness, hypovolemia, rn idiopathic dizziness. Differential diagnosis: TIA, vertigo. Data reviewed: vital signs, nurses notes. Data reviewed: lab test result(s), EKG, radiologic studies, CT scan, and as a result, I will discharge patient. Counseling: I had a detailed discussion with the patient and/or guardian regarding: the historical points, exam findings, and any diagnostic results supporting the discharge/admit diagnosis, lab results, radiology results, the need for outpatient follow up, to return to the emergency department if symptoms worsen or persist or if there are any questions or concerns that arise at home. Response to treatment: the patient's symptoms have markedly improved after treatment, and as a result, I will discharge patient. Special discussion: I discussed with the patient/guardian in detail that at this point there is no indication for admission to the hospital. It is understood, however, that if the symptoms persist or worsen the patient needs to return immediately for re-evaluation. Based on the history and exam findings, there is no indication for further emergent testing or inpatient evaluation. I discussed with the patient/guardian the need to see the neurologist for further evaluation of the symptoms. I discussed with the patient/guardian the need to see the primary care provider for further evaluation of the symptoms. ED course: Pt reports low back pain and urinary symptoms, will dc home with abx. . 06/24 12:56 Order name: SARS-COV-2 RT PCR (Document "Date of Onset" if Symptomatic) 06/24 13:19 Order name: Urine Dipstick-Ancillary; Complete Time: 15:44 EDNY 06/24 13:50 Order name: Basic Metabolic Panel; Complete Time: 15:44 EDNY 06/24 12:55 Order name: CT Head Brain wo Cont rn 06/24 12:55 Order name: EKG; Complete Time: 22:26 06/24 12:55 Order name: Cardiac monitoring; Complete Time: 17:12 06/24 13:41 Order name: CT; Complete Time: 15:44 EDNY 06/24 13:50 Order name: Liver (Hepatic) Function; Complete Time: 15:44 EDNY 06/24 13:57 Order name: CBC with Automated Diff; Complete Time: 15:44 EDNY 06/24 14:51 Order name: SARS-COV-2 RT PCR; Complete Time: 15:44 EDNY 06/24 12:55 Order name: EKG - Nurse/Tech; Complete Time: 13:45 rn 06/24 12:55 Order name: IV Saline Lock; Complete Time: 13:15 06/24 12:55 Order name: Labs collected and sent; Complete Time: 13:15 06/24 12:55 Order name: O2 Per Protocol; Complete Time: 17:12 06/24 12:55 Order name: O2 Sat Monitoring; Complete Time: 17:12 06/24 12:55 Order name: Urine Dipstick-Ancillary (obtain specimen); Complete Time: 13:15 rn EC:25 Rate is 53 beats/min. Rhythm is regular. QRS [place] is Normal. [place] interval is normal. QRS rn interval is normal. QT interval is normal. No Q waves. T waves are Normal. No ST changes noted. Clinical impression: Sinus bradycardia. Interpreted by me. Reviewed by me. Administered Medications: 13:35 Drug: NS 0.9% 500 ml Route: IV; Rate: bolus; Site: left antecubital; kb3 15:00 Follow up: Response: No adverse reaction; IV Status: Completed infusion; IV Intake: kb3 500ml Disposition Summary: 06/24/22 15:51 Discharge Ordered Location: Home rn Problem: new rn Symptoms: have improved rn Condition: Stable rn Diagnosis - Dizziness and giddiness rn - UTI/ Urinary tract infection, site not specified rn Followup: rn - With: Private Physician - When: As needed - Reason: Recheck today's complaints, Re-evaluation by your physician Discharge Instructions: - Discharge Summary Sheet rn - Dizziness rn - Urinary Tract Infection, Adult rn Forms: - Medication Reconciliation Form rn - Thank You Letter rn - Antibiotic rn practitioner - Prescription Opioid Use rn - Work release form kb3 Prescriptions: - Cipro 500 mg Oral Tablet - take 1 tablet by ORAL route every 12 hours for 7 days; 14 tablet; Refills: 0, rn Product Selection Permitted Signatures: Dispatcher [employer] Yuniel Mckee MD MD rn McCarthy, Brittany, RN RN bm7 Collette Galicia, RN RN kb3
[2022-06-24 18:36] VITALS: TEMP 97.1
[2022-06-24 18:41] VITALS: BP 154/82; O2SAT 99
--- NOTE | 2022-06-25 12:49 | EKG ---
Test Date: 2022-06-24 Test Time: 13:27:26 Executive Recruiter: JONATHAN MEASUREMENT RESULTS: Intervals: Rate: 53 NV: 156 QRSD: 82 QT: 402 QTc: 377 [place]: P: 52 NV: 156 QRS: 14 T: 61 INTERPRETIVE STATEMENTS: Sinus bradycardia Otherwise normal ECG Compared to ECG 02/01/2021 20:38:37 Sinus rhythm no longer present ST (T wave) deviation no longer present Electronically Signed On 06-25-22 12:48:57 CDT by Gregory Higuera
== END 2022-06-24 17:11 | disposition home or self-care (01) ==
LOC: ER 12:27
DX: N39.0 Urinary tract infection, site not specified (principal); I10 Essential (primary) hypertension; Z20.822 Contact with and (suspected) exposure to COVID-19
CPT/HCPCS: 93005; 85025; 80048; 36415; 82947; 80076; 81003; 70450; 96360; 99284; U0003; J7040

== ENCOUNTER 2022-08-07 18:13 | Emergency (ER) | payer BC ==
--- OUTSIDE RECORDS SUMMARY | 2022-08-07 18:18 | XMS REPORT | Continuity of Care Document ---
:1960 Author Organization [facility] t Address [address] [place] [address] [address]. [address] [place] [address] Care Team Providers Name Role Phone Sudhakar Marin Primary Care Physician Sudhakar Marin Attending Clinician MAKI POSEY Attending Clinician Unavailable Maki Posey MD Attending Clinician Doctor Unassigned, [place] Attending Clinician Unavailable Sudhakar Marin MD A Attending Clinician Hussein Lowe Attending Clinician SUDHAKAR MARIN Attending Clinician Unavailable URSULA HULL Attending Clinician Unavailable JAN LOMELI Attending Clinician Unavailable GLADYS PATEL I Attending Clinician Unavailable Lab, Adc Fam Pob I Attending Clinician Unavailable Allan_L Attending Clinician Unavailable MAKI POSEY Admitting Clinician Unavailable Chuck Admitting Clinician Unavailable Payers Payer Name Policy Type Policy Number Effective Date Expiration Date Phong siu [employer] [facility] [facility] [id number] 2018 00:00:00 [employer] [employer] [id number] 2018 00:00:00 [place] [id number] 2018 00:00:00 Problems Condition Condition Condition Status Onset Resolution Last Treating Co mments Source Name Details Category Date Date Treatment Clinician Date Paresthesi Paresthesi Disease Active M ethodi a a 06-10 00:00: Hospita 00 l Thiamin Thiamin Disease Active Methodi deficiency deficiency 06-10 00:00: Hospita 00 l Family Family Disease Active Overview: Univer s history of history of 03-27 Formattin ity of breast breast 00:00: g of this [place] cancer cancer 00 note Medical might be [...] 03-25 He alth emia emia 00:00: 00 Neuropathy Neuropathy Disease Active M ethodi involving involving 03-24 st both lower both lower 00:00: Ho spita extremitie extremitie 00 l s s Elevated Elevated Disease Active Metho di CK CK 03-24 00:00: Hospita 00 l Weight Weight Disease Active Univers loss, loss, 03-08 it[facility] [place] [facility] Hyperchole Hyperchole Disease Active M ethodi sterolemia sterolemia 03-08 st 00:00: Hospita 00 l Essential Essential Disease Active Met hodi hypertensi hypertensi 03-08 st on on 00:00: Hospita 00 l Kidney Kidney Disease Active Methodi stone stone 03-08 st 00:00: Hospita 00 l Prediabete Prediabete Disease Active M ethodi s s 03-08 st 00:00: Hospita 00 l Thiamin Thiamin Problem Active 2021-10-05 Me moria deficiency deficiency 03:09:20 l (disorder) (disorder) He rmann Active Problem 10/05/2021 [facility] Hypertensi Hypertens Problem Active 2021-10-05 Meaghan ve lola 03:09:20 l disorder, disorder, Herm iggy systemic systemic arterial arterial (disorder) (disorder) Active Problem 10/05/2021 [facility] Hyperlipid Hyperlipi Problem Active 2021-10-05 Meaghan emjoce demia 03:09:20 l (disorder) (disorder) He rmann Active Problem 10/05/2021 [facility] Allergies, Adverse Reactions, Alerts Allergy Allergy Status Severity Reaction(s) Onset Inactive Treating Comm ents Source Name Type Date Date Clinician NO KNOWN Drug Active Univers ALLERGIE Class ity [facility] Family History Family Member Diagnosis Comments Start Date Stop Date Source Other Uterine cancer [facility] Natural sister Cancer [facility] Social History Social Habit Start Date Stop Date Quantity Comments Source Exposure to Not sure [facility]-CoV-2 [facility] (event) Branch History SDMS Darion Lopez h Alcohol Std Drinks History [facility] Darion Lopez [facility] B[facility] Alcohol intake 2022-07-25 2022-07-25 Ex-drinker [facility] 00:00:00 00:00:00 (finding) Hospital Tobacco use and 2021-03-25 2021-03-25 Smokeless tobacco [facility] exposure 00:00:00 00:00:00 non-user History SDMS 2021-03-25 2021-03-25 [facility] Alcohol Frequency 00:00:00 00:00:00 Social History 2021-02-07 2021-02-07 [facility] 18:55:18 18:55:18 Sex Ass[birth year] At [birth year] [facility] 00:00:00 00:00:00 Hospital Smoking Status Start Date Stop Date Source Never smoked tobacco [facility] Unknown if ever smoked [facility] Medications Ordered Filled Start Stop Current Ordering Indication Dosage Frequency Signature Comments Components Source Medication Medication Date Date Medication? Clinician (SIG) Name Name aspirin 2021-10 Yes 81mg QD Take 1 Methodi (ECOTRIN) 0-07 tablet (81 st 81 MG 11:03: mg total) Hospita enteric 21 by mouth l coated daily. tablet COQ10, 2021-10 Yes QD Take by Methodi UBIQUINOL, 0-[address] ORAL 11:03: daily. Hospita 21 l ascorbic 2021-10 Yes 500mg QD Take 1 Method i acid, 0-[address] vitamin C, 11:03: (500 mg Hosp storm (VITAMIN C) 21 total) by l 500 MG mouth tablet daily. zinc 50 mg 2021-10 Yes Take by Meth deonte tablet 0-[address] 11:03: Hospita 21 l fluconazole 2021-10- No [id number] 150mg Take 1 Methodi (DIFLUCAN) 0-07 10-[address] 150 MG 00:00: 04:59 (150 mg Hospita tablet 00 :00 total) by l mouth once for 1 dose. May repeat x 1 dose in 3-4 days if needed. aspirin Yes 81mg QD Take 1 Methodi (ECOTRIN) 8-23 tablet (81 st 81 MG 15:06: mg total) Hospita enteric 36 by mouth l coated daily. tablet COQ10, Yes QD Take by Methodi UBIQUINOL, 8-[address] ORAL 15:06: daily. Hospita 36 l ascorbic 0 Yes 500mg QD Take 1 Method i acid, 8-[address] vitamin C, 15:06: (500 mg Hosp storm (ascorbic 36 total) by l acid with mouth blaise hips) daily. 500 MG tablet zinc 50 mg Yes Take by Meth deonte tablet 8-[address] 15:06: Hospita 36 l rosuvastati Yes [id number] 10mg QD Take 1 Methodi n (CRESTOR) 8-23 tablet (10 st 10 mg 00:00: mg total) Hospita tablet 00 by mouth l nightly. nebivoloL 0 Yes [id number] 10mg Q.5D Take 1 Me thodi (BYSTOLIC) 8-23 tablet (10 st 10 MG 00:00: mg total) Hospita tablet 00 by mouth 2 l (two) times a day. lisinopriL 0 Yes [id number] 20mg Q.5D Take 1 M ethodi (PRINIVIL) 8-23 tablet (20 st 20 mg 00:00: mg total) Hospita tablet 00 by mouth 2 l (two) times a day. ergocalcife 0 Yes [id number] Q30D Take 1 Methodi rol 8-[address] (VITAMIN 00:00: (50,000 Hospit a D2) 50,000 00 Units l unit total) by capsule mouth every 30 (thirty) days. rosuvastati 0 Yes [id number] 10mg QD Take 1 Methodi n (CRESTOR) 8-23 tablet (10 st 10 mg 00:00: mg total) Hospita tablet 00 by mouth l nightly. nebivoloL 0 Yes [id number] 10mg Q.5D Take 1 Me thodi (BYSTOLIC) 8-23 tablet (10 st 10 MG 00:00: mg total) Hospita tablet 00 by mouth 2 l (two) times a day. lisinopriL 0 Yes [id number] 20mg Q.5D Take 1 M ethodi (PRINIVIL) 8-23 tablet (20 st 20 mg 00:00: mg total) Hospita tablet 00 by mouth 2 l (two) times a day. ergocalcife 0 Yes [id number] Q30D Take 1 Methodi rol 8-[address] (VITAMIN 00:00: (50,000 Hospit a D2) 50,000 00 Units l unit total) by capsule mouth every 30 (thirty) days. NEBIVOLOL 0 Yes [id number] TAKE 1 Un terence 10 mg 7-26 TABLET BY ity of tablet 00:00: MOUTH [place] 00 TWICE Medical DAILY Branch NEBIVOLOL 2021-0 Yes [id number] TAKE 1 Un terence 10 mg 7-26 TABLET BY ity of tablet 00:00: MOUTH [place] 00 TWICE Medical DAILY Branch NEBIVOLOL 2021-0 Yes [id number] TAKE 1 Un terence 10 mg 7-26 TABLET BY ity of tablet 00:00: MOUTH [place] 00 TWICE Medical DAILY Branch nebivoloL 0 2021- No 10mg Q.5D Take 1 Metho di (BYSTOLIC) 7-26 08-23 tablet (10 st 10 MG 00:00: 00:00 mg total) Hospit a tablet 00 :00 by mouth 2 l (two) times a day. nebivoloL 2021-0 2021- No 10mg Q.5D Take 1 Metho di (BYSTOLIC) 7-26 08-23 tablet (10 st 10 MG 00:00: 00:00 mg total) Hospit a tablet 00 :00 by mouth 2 l (two) times a day. rosuvastati 2021- No Metho di n (CRESTOR) 05-10 st 10 mg 00:00: 00:00 Hospita tablet 00 :00 l rosuvastati 2021- No Metho di n (CRESTOR) 05-10 st 10 mg 00:00: 00:00 Hospita tablet 00 :00 l multivit/fo 0 Yes Take by Uni vers lic 6-09 mouth. ity of acid/vit K1 15:27: (ONE-A-DAY Medical [facility] 50 Branch PLUS ORAL) multivit/fo 0 Yes Take by Uni vers lic 6-09 mouth. ity of acid/vit K1 15:27: [place] [facility] multivit/fo 0 Yes Take by Uni vers lic 6-09 mouth. ity of acid/vit K1 15:27: [facility] multivit/fo 0 Yes Take by Uni vers lic 6-09 mouth. ity of acid/vit K1 15:27: [place] [facility]) multivit/fo 0 Yes Take by Uni vers lic 6-09 mouth. ity of acid/vit K1 15:27: [place] [facility]) lisinopriL 2021- No 20mg Q.5D Take 1 Meth deonte (PRINIVIL) 03-20 tablet (20 st 20 mg 00:00: 00:00 mg total) Hospit a tablet 00 :00 by mouth 2 l (two) times a day. lisinopriL 2021- No 20mg Q.5D Take 1 [...] AND THEN capsule ONCE A MONTH ergocalcife 2021- No Q30D every 30 M ethodi rol 5-31 05-23 (thirty) st (VITAMIN 00:00: 00:00 days. Hospita D2) 50,000 00 :00 l unit capsule ergocalcife 2021- No Q30D every 30 M ethodi rol 5-13 08-23 (thirty) st (VITAMIN 00:00: 00:00 days. Hospita D2) 50,000 00 :00 l unit capsule thiamine 2020-10 Yes 100 mg = 1 Mem oria 100 mg oral 2-15 tab, PO, l tablet 14:50: Daily, 0 [place] 00 Refill(s) thiamine 2020-10 Yes 100 mg = 1 Mem oria 100 mg oral 2-15 tab, PO, l tablet 14:50: Daily, 0 [place] 00 Refill(s) Famotidine 2020-10 Yes TAKE 1 Memor ia 20 MG Oral 2-15 TABLET BY l Tablet 14:37: MOUTH Gurpreet 00 TWICE DAILY. STOP OMEPRAZOLE rosuvastati 2020-10 Yes 0 Memori a n 10 mg 2-15 Refill(s) l oral tablet 14:37: Supa n 00 Famotidine 2020-10 Yes TAKE 1 Memor ia 20 MG Oral 2-15 TABLET BY l Tablet 14:37: MOUTH Gurpreet 00 TWICE DAILY. STOP OMEPRAZOLE rosuvastati 2020-10 Yes 0 Memori a n 10 mg 2-15 Refill(s) l oral tablet 14:37: Supa n aspirin Yes 81mg Take 81 mg Univ ers (ADULT LOW 8-30 by mouth ity o f DOSE 16:03: daily. [place] ASPIRIN) 81 48 Medical mg EC Branch tablet COQ10, Yes Take by Univers UBIQUINOL, 8-30 mouth. ity of ORAL 16:03: [address] aspirin Yes 81mg Take 81 mg Univ ers (ADULT LOW 8-30 by mouth ity o f DOSE 16:03: daily. [place] ASPIRIN) 81 48 Medical mg EC Branch tablet COQ10, Yes Take by Univers UBIQUINOL, 8-30 mouth. ity of ORAL 16:03: [address] aspirin Yes 81mg Take 81 mg Univ ers (ADULT LOW 8-30 by mouth ity o f DOSE 16:03: daily. [place] ASPIRIN) 81 48 Medical mg EC Branch tablet COQ10, Yes Take by Univers UBIQUINOL, 8-30 mouth. ity of ORAL 16:03: [address] aspirin Yes 81mg Take 81 mg Univ ers (ADULT LOW 8-30 by mouth ity o f DOSE 16:03: daily. [place] ASPIRIN) 81 48 Medical mg EC Branch tablet COQ10, Yes Take by Univers UBIQUINOL, 8-30 mouth. ity of ORAL 16:03: [address] aspirin Yes 81mg Take 81 mg Univ ers (ADULT LOW 8-30 by mouth ity o f DOSE 16:03: daily. [place] ASPIRIN) 81 48 Medical mg EC Branch tablet COQ10, 0 Yes Take by Univers UBIQUINOL, 8-30 mouth. ity of ORAL 16:03: [address] nebivoloL Yes [id number] 10mg Take 1 Un terence (BYSTOLIC) 8-30 tablet by ity of 10 mg 00:00: mouth 2 [place] tablet 00 (two) Medical times Branch daily. lisinopriL 2020-0 Yes [id number] 20mg Take 1 U nivers 20 mg 8-30 tablet by ity of tablet 00:00: mouth 2 [place] (two) Medical times Branch daily. rosuvastati 2020-0 Yes [id number] 10mg Take 1 Univers n 10 mg 8-30 tablet by ity of tablet 00:00: mouth at [place] 00 bedtime. Medical Branch famotidine 2020-0 Yes [id number] 20mg Take 1 Univers 20 mg 8-30 tablet by ity of tablet 00:00: mouth 2 [place] (two) Medical times Branch daily. STOP OMEPRAZOLE . nebivoloL 2020-0 Yes [id number] 10mg Take 1 Un terence (BYSTOLIC) 8-30 tablet by ity of 10 mg 00:00: mouth 2 [place] tablet 00 (two) Medical times Branch daily. lisinopriL 2020-0 Yes [id number] 20mg Take 1 U nivers 20 mg 8-30 tablet by ity of tablet 00:00: mouth 2 [place] (two) Medical times Branch daily. rosuvastati 2020-0 Yes [id number] 10mg Take 1 Univers n 10 mg 8-30 tablet by ity of tablet 00:00: mouth at [place] 00 bedtime. Medical Branch famotidine 2020-0 Yes [id number] 20mg Take 1 Univers 20 mg 8-30 tablet by ity of tablet 00:00: mouth 2 [place] (two) Medical times Branch daily. STOP OMEPRAZOLE . lisinopriL 2020-0 Yes [id number] 20mg Take 1 U nivers 20 mg 8-30 tablet by ity of tablet 00:00: mouth 2 [place] (two) Medical times Branch daily. rosuvastati 2020-0 Yes [id number] 10mg Take 1 Univers n 10 mg 8-30 tablet by ity of tablet 00:00: mouth at [place] 00 bedtime. Medical Branch famotidine 2020-0 Yes [id number] 20mg Take 1 Univers 20 mg 8-30 tablet by ity of tablet 00:00: mouth 2 [place] (two) Medical times Branch daily. STOP OMEPRAZOLE . lisinopriL 2020-0 Yes [id number] 20mg Take 1 U nivers 20 mg 8-30 tablet by ity of tablet 00:00: mouth 2 [place] (two) Medical times Branch daily. rosuvastati 2020-0 Yes [id number] 10mg Take 1 Univers n 10 mg 8-30 tablet by ity of tablet 00:00: mouth at [place] [address] bedtime. Medical Branch famotidine 2020- Yes [id number] 20mg Take 1 Univers 20 mg 8-30 tablet by ity of tablet 00:00: mouth 2 [place] (two) Medical times Branch daily. STOP OMEPRAZOLE . lisinopriL Yes [id number] 20mg Take 1 U nivers 20 mg 8-30 tablet by ity of tablet 00:00: mouth 2 [place] 00 (two) Medical times Branch daily. rosuvastati 2020- Yes [id number] 10mg Take 1 Univers n 10 mg 8-30 tablet by ity of tablet 00:00: mouth at [place] [address] bedtime. Medical Branch famotidine Yes [id number] 20mg Take 1 Univers 20 mg 8-30 tablet by ity of tablet 00:00: mouth 2 [place] (two) Medical times Branch daily. STOP OMEPRAZOLE . nebivoloL 2021- No [id number] 10mg Take 1 U nivers (BYSTOLIC) 8-30 07-26 tablet by ity of 10 mg 00:00: 00:00 mouth 2 [place] tablet 00 :00 (two) Medical times Branch daily. nebivolol Yes 10 mg = 1 Mem oria 10 MG Oral 6-15 tab, l Tablet 14:57: Daily, 0 [place] [Bystolic] 00 Refill(s) nebivolol 2020-0 Yes 10 mg = 1 Mem oria 10 MG Oral 6-15 tab, l Tablet 14:57: Daily, 0 Gurpreet [Bystolic] 00 Refill(s) omeprazole 2020-0 Yes 20mg Take 20 mg U nivers 20 mg 5-21 by mouth ity of capsule 18:48: as needed. [facility] s 33 Medical Branch aspirin 2020-0 Yes 81mg Take 81 mg Univ ers (ADULT LOW 5-21 by mouth ity o f DOSE 18:48: daily. [place] ASPIRIN) 81 33 Medical mg Branch tablet omeprazole 2020-0 Yes 20mg Take 20 mg U nivers 20 mg 5-21 by mouth ity of capsule 18:48: as needed. Yung stewart 33 [facility] Branch aspirin 2020-0 Yes 81mg Take 81 mg Univ ers (ADULT LOW 5-21 by mouth ity o f DOSE 18:48: daily. [place] ASPIRIN) 81 33 Medical mg EC Branch tablet omeprazole 2020-0 Yes 20mg Take 20 mg U nivers 20 mg 5-21 by mouth ity of capsule 18:48: as needed. Yung stewart 33 [facility] aspirin 2020-0 Yes 81mg Take 81 mg Univ ers (ADULT LOW 5-21 by mouth ity o f DOSE 18:48: daily. [place] ASPIRIN) 81 33 Medical mg EC Branch tablet omeprazole 2020-0 Yes 20mg Take 20 mg U nivers 20 mg 5-21 by mouth ity of capsule 18:48: as needed. Yung Ko [facility] aspirin 2020-0 Yes 81mg Take 81 mg Univ ers (ADULT LOW 5-21 by mouth ity o f DOSE 18:48: daily. [place] ASPIRIN) 81 33 Medical mg EC Branch tablet omeprazole 2020-0 Yes 20mg Take 20 mg U nivers 20 mg 5-21 by mouth ity of capsule 18:48: as needed. Yung stewart 33 [facility] aspirin 2020-0 Yes 81mg Take 81 mg Univ ers (ADULT LOW 5-21 by mouth ity o f DOSE 18:48: daily. [place] ASPIRIN) 81 33 Medical mg EC Branch tablet omeprazole 2020-0 Yes 20mg Take 20 mg U nivers 20 mg 5-21 by mouth ity of capsule 18:48: as needed. Yung stewart [address] [place] [address] aspirin 2020-0 Yes 81mg Take 81 mg Univ ers (ADULT LOW 5-21 by mouth ity o f DOSE 18:48: daily. [place] ASPIRIN) 81 33 Medical mg EC Branch tablet omeprazole 202-0 Yes 20mg Take 20 mg U nivers 20 mg 5-21 by mouth ity of capsule 18:48: as needed. Yung stewart 33 [facility] aspirin 202-0 Yes 81mg Take 81 mg Univ ers (ADULT LOW 5-21 by mouth ity o f DOSE 18:48: daily. [place] ASPIRIN) 81 33 Medical mg EC Branch tablet omeprazole 202-0 Yes 20mg Take 20 mg U nivers 20 mg 5-21 by mouth ity of capsule 18:48: [place] [facility] aspirin Yes 81mg Take 81 mg Univ ers (ADULT LOW 5-21 by mouth ity o f DOSE 18:48: daily. [place] ASPIRIN) 81 33 Medical mg EC Branch tablet omeprazole Yes 20mg Take 20 mg U nivers 20 mg 5-21 by mouth ity of capsule 18:48: as needed. Yung s 33 Medical Branch aspirin Yes 81mg Take 81 mg Univ ers (ADULT LOW 5-21 by mouth ity o f DOSE 18:48: daily. [place] ASPIRIN) 81 33 Medical mg EC Branch tablet rosuvastati Yes [id number] 10mg Take 1 Univers n 10 mg 5-21 tablet by ity of tablet 00:00: mouth at [place] [address] bedtime. Medical REPLACES Branch ATORVASTAT IN. rosuvastati Yes [id number] 10mg Take 1 Univers n 10 mg 5-21 tablet by ity of tablet 00:00: mouth at [place] [address] bedtime. Medical REPLACES Branch ATORVASTAT IN. rosuvastati Yes [id number] 10mg Take 1 Univers n 10 mg 5-21 tablet by ity of tablet 00:00: mouth at [place] [address] bedtime. Medical REPLACES Branch ATORVASTAT IN. rosuvastati Yes [id number] 10mg Take 1 Univers n 10 mg 5-21 tablet by ity of tablet 00:00: mouth at [place] [address] bedtime. Medical REPLACES Branch ATORVASTAT IN. rosuvastati Yes [id number] 10mg Take 1 Univers n 10 mg 5-21 tablet by ity of tablet 00:00: mouth at [place] [address] bedtime. Medical REPLACES Branch ATORVASTAT IN. rosuvastati Yes [id number] 10mg Take 1 Univers n 10 mg 5-21 tablet by ity of tablet 00:00: mouth at [place] [address] bedtime. Medical REPLACES Branch ATORVASTAT IN. rosuvastati Yes [id number] 10mg Take 1 Univers n 10 mg 5-21 tablet by ity of tablet 00:00: mouth at [place] [address] bedtime. Medical REPLACES Branch ATORVASTAT IN. rosuvastati Yes [id number] 10mg Take 1 Univers n 10 mg 5-21 tablet by ity of tablet 00:00: mouth at [place] 00 bedtime. Medical REPLACES Branch ATORVASTAT IN. rosuvastati Yes [id number] 10mg Take 1 Univers n 10 mg 5-21 tablet by ity of tablet 00:00: mouth at [place] 00 bedtime. Medical REPLACES Branch ATORVASTAT IN. thiamine Yes 100mg QD Take 1 Method i 100 MG 5-[address] tablet 00:00: (100 mg Hospita 00 total) by l mouth daily. VITAMIN 2020- Yes 1{tbl} Take 1 Univer s B-1, 5-01 tablet by ity of MONONITRATE 00:00: mouth [place] , 100 mg 00 daily. Medical Tab Branch VITAMIN Yes 1{tbl} Take 1 Univer s B-1, 5-01 tablet by ity of MONONITRATE 00:00: mouth [place] , 100 mg 00 daily. Medical Tab Branch VITAMIN 2020- Yes 1{tbl} Take 1 Univer s B-1, 5-01 tablet by ity of MONONITRATE 00:00: mouth [place] , 100 mg 00 daily. Medical Tab Branch VITAMIN 2020- Yes 1{tbl} Take 1 Univer s B-1, [...] mg 00 daily. Medical Tab Branch VITAMIN 202-0 Yes 1{tbl} Take 1 Univer s B-1, [...] tab, PO, l tablet 22:48: Daily, X [place] 90 day, # 90 tab, 1 Refill(s), Pharmacy: [facility] #[id number], 167.64, cm, 02/07/21 14:09:00 CDT, Height, 90.455, kg, 02/07/21 14:09:00 CDT, Weight thiamine 2020-0 Yes 100 mg = 1 Mem oria 100 mg oral 4-30 tab, PO, l tablet 22:48: Daily, X [place] 90 day, # 90 tab, 1 Refill(s), Pharmacy: [id number], 167.64, cm, 02/07/21 14:09:00 CDT, Height, 90.455, kg, 02/07/21 14:09:00 CDT, Weight gabapentin 2020-0 Yes 100 mg = 1 M emoria 100 MG Oral 4-22 cap, PO, l Capsule 19:51: Bedtime, # Herm iggy 00 30 cap, 1 Refill(s), other gabapentin 2020-0 Yes 100 mg = 1 M emoria 100 MG Oral 4-22 cap, PO, l Capsule 19:51: Bedtime, # Herm iggy 00 30 cap, 1 Refill(s), other Aspirin 2020-0 Yes 81 mg, PO, [facility] mihir 4-22 Daily, 0 l 18:52: Refill(s) Aspirin 2020-0 Yes 81 mg, PO, [facility] mi[facility] 4-22 Daily, 0 l 18:52: Refill(s) atorvastati 2020-0 Yes 10 mg, PO, Memoria n 4-22 Daily, 0 l 18:51: Refill(s) Lisinopril 0 Yes 20 mg, PO, M emoria 4-22 Daily, 0 l 18:51: Refill(s) atorvastati 2020-0 Yes 10 mg, PO, Memoria n 4-22 Daily, 0 l 18:51: Refill(s) Lisinopril 0 Yes 20 mg, PO, M emoria 4-22 Daily, 0 l 18:51: Refill(s) PARoxetine 2020-2020- No 10mg Take 10 mg Univers 10 mg 02-01-21 by mouth ity of tablet 00:00: 00:00 at [place] 00 :00 bedtime. Medical Branch PARoxetine 2020-2020- No 10mg Take 10 mg Univers 10 mg -16 -21 by mouth ity of tablet 00:00: 00:00 at [place] 00 :00 bedtime. Medical Branch lisinopriL 2020-0 Yes 20mg Take 20 mg U nivers 20 mg 4-13 by mouth 2 ity of tablet 00:00: (two) [place] 00 times Medical daily. Branch lisinopriL 2020-0 Yes 20mg Take 20 mg U nivers 20 mg 4-13 by mouth 2 ity of tablet 00:00: (two) [place] 00 times Medical daily. Branch lisinopriL 2020-0 Yes 20mg Take 20 mg U nivers 20 mg 4-13 by mouth 2 ity of tablet 00:00: (two) [place] 00 times Medical daily. Branch lisinopriL 1-0 Yes 20mg Take 20 mg U nivers 20 mg 4-13 by mouth 2 ity of tablet 00:00: (two) [place] 00 times Medical daily. Branch lisinopriL 2021-0 Yes 20mg Take 20 mg U nivers 20 mg 4-13 by mouth 2 ity of tablet 00:00: (two) [place] 00 times Medical daily. Branch lisinopriL 2021-0 Yes 20mg Take 20 mg U nivers 20 mg 4-13 by mouth 2 ity of tablet 00:00: (two) [place] 00 times Medical daily. Branch lisinopriL 1-0 Yes 20mg Take 20 mg U nivers 20 mg 4-13 by mouth 2 ity of tablet 00:00: (two) [place] 00 times Medical daily. Branch lisinopriL 1-0 Yes 20mg Take 20 mg U nivers 20 mg 4-13 by mouth 2 ity of tablet 00:00: (two) [place] 00 times Medical daily. Branch lisinopriL 1-0 Yes 20mg Take 20 mg U nivers 20 mg 4-13 by mouth 2 ity of tablet 00:00: (two) [place] 00 times Medical daily. Branch gabapentin 2020-0 2020- No 100mg Take 100 U nivers 100 mg 4-13 05-21 mg by ity of capsule 00:00: 00:00 mouth at [place] 00 :00 bedtime. Medical Branch gabapentin 2020-0 2020- No 100mg Take 100 U nivers 100 mg 4-13 05-21 mg by ity of capsule 00:00: 00:00 mouth at [place] 00 :00 bedtime. Medical Branch ergocalcife 2020-0 Yes TAKE 1 Univ ers rol, 4-05 CAPSULE BY ity of vitamin d2, 00:00: MOUTH [place] 1,250 mcg 00 WEEKLY FOR Medi suellen (50,000 ONE MONTH Branch unit) AND THEN capsule ONCE A MONTH ergocalcife 2020-0 Yes TAKE 1 Univ ers rol, 4-05 CAPSULE BY ity of vitamin d2, 00:00: MOUTH [place] 1,250 mcg 00 WEEKLY FOR Medi suellen (50,000 ONE MONTH Branch unit) AND THEN capsule ONCE A MONTH ergocalcife 2021-0 Yes TAKE 1 Univ ers rol, 4-05 [...] Take 10 mg Univers n 10 mg 01-21- by mouth ity of tablet 00:00: 00:00 every [place] 00 :00 morning. Medical Branch atorvastati 2020- No 10mg Take 10 mg Univers n 10 mg 01-21-21 by mouth ity of tablet 00:00: 00:00 every [place] 00 :00 morning. Medical Branch BYSTOLIC 10 Yes 10mg Take 10 mg Univers mg tablet 2-23 by mouth 2 ity of 00:00: (two) [place] 00 times Medical daily. [facility] Yes 10mg Take 10 mg Univers mg tablet 2-23 by mouth 2 ity of 00:00: (two) [place] 00 times Medical daily. [facility] Yes 10mg Take 10 mg Univers mg tablet 2-23 by mouth 2 ity of 00:00: (two) [place] 00 times Medical daily. [facility] Yes 10mg Take 10 mg Univers mg tablet 2-23 by mouth 2 ity of 00:00: (two) [place] 00 times Medical daily. [facility] Yes 10mg Take 10 mg Univers mg tablet 2-23 by mouth 2 ity of 00:00: (two) [place] 00 times Medical daily. [facility] Yes 10mg Take 10 mg Univers mg tablet 2-23 by mouth 2 ity of 00:00: (two) [place] 00 times Medical daily. [facility] Yes 10mg Take 10 mg Univers mg tablet 2-23 by mouth 2 ity of 00:00: (two) [place] 00 times Medical daily. Branch [facility] Yes 10mg Take 10 mg Univers mg tablet 2-23 by mouth 2 ity of 00:00: (two) [place] 00 times Medical daily. [facility] Yes 10mg Take 10 mg Univers mg tablet 2-23 by mouth 2 ity of 00:00: (two) [place] 00 times Medical daily. [place] Immunizations Ordered Filled Immunization Date Status Comments [facility] e Immunization Name Name Influenza, 2021-09-17 Completed [facility] Unspecified 00:00:00 [facility] Influenza Virus 2021-09-17 Completed Universit y of Vaccine Quad IM, 00:00:00 [place] Me dical Preserv and ABX Branch Free 6 MO-64 YRS Influenza Virus 2021-09-17 Completed Universit y of Vaccine Quad IM, 00:00:00 [place] Me dical Preserv and ABX Branch Free 6 MO-64 YRS Influenza Virus 2021-09-17 Completed Universit y of Vaccine Quad IM, 00:00:00 [place] dical Preserv and ABX Branch Free 6 MO-64 YRS Influenza Virus 2021-09-17 Completed Universit y of Vaccine [facility] IM, 00:00:00 [facility] dical Preserv and ABX Branch Free 6 MO-64 YRS Influenza Virus 2021-09-17 Completed Universit y of Vaccine [facility] IM, 00:00:00 [place] dical Preserv and ABX Branch Free 6 MO-64 YRS Influenza, 2021-09-17 Completed [facility] Unspecified 00:00:00 Hospital PFIZER COVID-19 2021-08-18 Completed [facility] MRNA VACCINATION 00:00:00 Hospital SARS-COV-2 COVID-19 2021-08-18 Completed Unive rsity of PFIZER VACCINE 00:00:00 [facility] SARS-COV-2 COVID-19 2021-08-18 Completed Unive rsity of PFIZER VACCINE 00:00:00 [facility] SARS-COV-2 COVID-19 2021-08-18 Completed Unive rsity of PFIZER VACCINE 00:00:00 [facility] SARS-COV-2 COVID-19 2021-08-18 Completed Unive rsity of PFIZER VACCINE 00:00:00 [facility] SARS-COV-2 COVID-19 2021-08-18 Completed Unive rsity of PFIZER VACCINE 00:00:00 [facility] PFIZER COVID-19 2021-08-18 Completed [facility] MRNA VACCINATION 00:00:00 Hospital PFIZER COVID-19 2021-01-19 Completed Rastafarian MRNA VACCINATION 00:00:00 [facility] SARS-COV-2 COVID-19 2021-01-19 Completed Unive rsity of PFIZER VACCINE 00:00:00 [facility] SARS-COV-2 COVID-19 2021-01-19 Completed Unive rsity of PFIZER VACCINE 00:00:00 [facility] SARS-COV-2 COVID-19 2021-01-19 Completed Unive rsity of PFIZER VACCINE 00:00:00 [facility] SARS-COV-2 COVID-19 2021-01-19 Completed Unive rsity of PFIZER VACCINE 00:00:00 [facility] SARS-COV-2 COVID-19 2021-01-19 Completed Unive rsity of PFIZER VACCINE 00:00:00 [facility] SARS-COV-2 COVID-19 2021-01-19 Completed Unive rsity of PFIZER VACCINE 00:00:00 [place] [facility] SARS-COV-2 COVID-19 2021-01-19 Completed Unive rsity of PFIZER VACCINE 00:00:00 [facility] SARS-COV-2 COVID-19 2021-01-19 Completed Unive rsity of PFIZER VACCINE 00:00:00 [facility] SARS-COV-2 COVID-19 2021-01-19 Completed Unive rsity of PFIZER VACCINE 00:00:00 [facility] SARS-COV-2 COVID-19 2021-01-19 Completed Unive rsity of PFIZER VACCINE 00:00:00 [facility] SARS-COV-2 COVID-19 2021-01-19 Completed Unive rsity of PFIZER VACCINE 00:00:00 [facility] SARS-COV-2 COVID-19 2021-01-19 Completed Unive rsity of PFIZER VACCINE 00:00:00 [facility] SARS-COV-2 COVID-19 2021-01-19 Completed Unive rsity of PFIZER VACCINE 00:00:00 [facility] SARS-COV-2 COVID-19 2021-01-19 Completed Unive rsity of PFIZER VACCINE 00:00:00 [facility] PFIZER COVID-19 2021-01-19 Completed [facility] MRNA VACCINATION 00:00:00 Hospital PFIZER COVID-19 2020-12-29 Completed [facility] MRNA VACCINATION 00:00:00 Hospital SARS-COV-2 COVID-19 2020-12-29 Completed Unive rsity of PFIZER VACCINE 00:00:00 [facility] SARS-COV-2 COVID-19 2020-12-29 Completed Unive rsity of PFIZER VACCINE 00:00:00 [facility] SARS-COV-2 COVID-19 2020-12-29 Completed Unive rsity of PFIZER VACCINE 00:00:00 [facility] SARS-COV-2 COVID-19 2020-12-29 Completed Unive rsity of PFIZER VACCINE 00:00:00 [facility] SARS-COV-2 COVID-19 2020-12-29 Completed Unive rsity of PFIZER VACCINE 00:00:00 [facility] SARS-COV-2 COVID-19 2020-12-29 Completed Unive rsity of PFIZER VACCINE 00:00:00 [facility] SARS-COV-2 COVID-19 2020-12-29 Completed Unive rsity of PFIZER VACCINE 00:00:00 [facility] SARS-COV-2 COVID-19 2020-12-29 Completed Unive rsity of PFIZER VACCINE 00:00:00 [facility] SARS-COV-2 COVID-19 2020-12-29 Completed Unive rsity of PFIZER VACCINE 00:00:00 [facility] SARS-COV-2 COVID-19 2020-12-29 Completed Unive rsity of PFIZER VACCINE 00:00:00 [facility] SARS-COV-2 COVID-19 2020-12-29 Completed Unive rsity of PFIZER VACCINE 00:00:00 [facility] SARS-COV-2 COVID-19 2020-12-29 Completed Unive rsity of PFIZER VACCINE 00:00:00 [facility] SARS-COV-2 COVID-19 2020-12-29 Completed Unive rsity of PFIZER VACCINE 00:00:00 [facility] SARS-COV-2 COVID-19 2020-12-29 Completed Unive rsity of PFIZER VACCINE 00:00:00 [facility] PFIZER COVID-19 2020-12-29 Completed [facility]astafarian MRNA VACCINATION 00:00:00 Hospital Vital Signs Vital Name Observation Time Observation Value Comments Source Systolic blood 2022-03-27 20:14:00 128 mm[Hg] Univer sity of pressure [facility] Diastolic blood 2022-03-27 20:14:00 76 mm[Hg] Unive rsity of pressure [facility] Heart rate 2022-03-27 20:14:00 111 /min [facility] Body temperature 2022-03-27 20:14:00 36.78 Virgen Univ [address]ity [facility] [place] [place] Respiratory rate 2022-03-27 20:14:00 18 /min Univ ersity [facility] [place] Body height 2022-03-27 20:14:00 167.6 cm [facility] Body weight 2022-03-27 20:14:00 99.338 kg [facility] BMI 2022-03-27 20:14:00 35.35 kg/m2 [facility] Body temperature 2021-03-08 18:47:00 36.78 Virgen Univ ersity of [facility] Body height 2021-03-08 18:47:00 167.6 cm [facility] Body weight 2021-03-08 18:47:00 87.454 kg [facility] BMI 2021-03-08 18:47:00 31.12 kg/m2 [facility] Systolic blood 2021-03-08 18:43:00 145 mm[Hg] Univer sity of pressure [facility] Diastolic blood 2021-03-08 18:43:00 73 mm[Hg] Unive rsity of pressure [facility] Heart rate 2021-03-08 18:43:00 52 /min [facility] Systolic blood 2022-07-25 15:58:00 137 mm[Hg] Method [facility] pressure Diastolic blood 2022-07-25 15:58:00 77 mm[Hg] [facility] pressure Heart rate 2022-07-25 15:58:00 56 /min [facility] Respiratory rate 2022-07-25 15:58:00 18 /min [facility] Body height 2022-07-25 15:58:00 167.6 cm [facility] Body weight 2022-07-25 15:58:00 99.156 kg [facility] BMI 2022-07-25 15:58:00 35.28 kg/m2 [facility] Oxygen saturation in 2022-07-25 15:58:00 98 /min [facility] Arterial blood by Pulse oximetry Systolic blood 2022-06-10 20:00:00 127 mm[Hg] Method [facility] pressure Diastolic blood 2022-06-10 20:00:00 78 mm[Hg] [facility] pressure Heart rate 2022-06-10 20:00:00 54 /min [facility] Respiratory rate 2022-06-10 20:00:00 16 /min [facility] Body height 2022-06-10 20:00:00 167.6 cm [facility] Body weight 2022-06-10 20:00:00 98.431 kg [facility] BMI 2022-06-10 20:00:00 35.02 kg/m2 [facility] Oxygen saturation in 2022-06-10 20:00:00 96 /min [facility] Arterial blood by Pulse oximetry Systolic (mm Hg) 2021-10-02 14:27:00 [facility] [place] Diastolic (mm Hg) 2021-10-02 14:27:00 Mem orial [facility] Heart Rate 2021-10-02 14:27:00 [facility] Respitory Rate 2021-10-02 14:27:00 Memori al [place] Height 2021-10-02 14:27:00 165.1 cm [facility] [place] Weight 2021-10-02 14:27:00 [facility] BMI Calculated 2021-10-02 14:27:00 Memori al [facility] Systolic (mm Hg) 2021-04-02 14:43:00 Parker [facility] Gur[facility] Diastolic (mm Hg) 2021-04-02 14:43:00 Mem orial [place] Heart Rate 2021-04-02 14:43:00 [facility] Respitory Rate 2021-04-02 14:43:00 Memori al [place] Height 2021-04-02 14:43:00 167.64 cm [facility] [place] Weight 2021-04-02 14:43:00 [facility] BMI Calculated 2021-04-02 14:43:00 Memori al Gur[facility] Systolic (mm Hg) 2021-02-18 18:13:00 Parker rial [facility] Diastolic (mm Hg) 2021-02-18 18:13:00 Mem orial Gur[facility] Heart Rate 2021-02-18 18:13:00 [facility] Respitory Rate 2021-02-18 18:13:00 Memori al [place] Height 2021-02-18 18:13:00 170.18 cm [facility] [place] Weight 2021-02-18 18:13:00 [facility] BMI Calculated 2021-02-18 18:13:00 Memori al [facility] Systolic (mm Hg) 2021-02-07 18:49:00 [facility] [place] Diastolic (mm Hg) 2021-02-07 18:49:00 Mem orial [place] Heart Rate 2021-02-07 18:49:00 [facility] Respitory Rate 2021-02-07 18:49:00 Memori al [place] Height 2021-02-07 18:49:00 167.64 cm [facility] [place] Weight 2021-02-07 18:49:00 [facility] BMI Calculated 2021-02-07 18:49:00 Rashmi monsalve [place] Procedures Procedure Date / Time Performing Clinician Source Performed URINE CULTURE 2022-07-25 16:20:00 [facility] POC URINALYSIS DIPSTICK 2022-07-25 16:12:57 [facility] LIPID PANEL 2022-06-20 14:53:00 [facility] COMPREHENSIVE METABOLIC 2022-06-20 14:53:00 [facility] PANEL VITAMIN D 25 HYDROXY 2022-06-20 14:53:00 [facility] LEVEL HEMOGLOBIN A1C 2022-06-20 14:53:00 [facility] XR CHEST 2 VW 2022-06-10 21:11:41 [facility] ECG 12-LEAD 2022-06-10 19:41:35 [facility] ASSIGNMENT OF BENEFITS 2022-05-23 19:36:16 Doctor Unassigned, No [facility] Lithotripsy of kidney [facility] Plan of Care Planned Activity Planned Date Details Comments Source Future Scheduled 2022-08-01 HEPATITIS B VACCINES Met [facility] Test 11:27:01 (1 of 3 - 3-dose series) [code = HEPATITIS B VACCINES (1 of 3 - 3-dose series)] Future Scheduled 2022-08-01 Hepatitis C screening [facility] Test 11:27:01 (procedure) [code = 741221243] Future Scheduled 2022-08-01 Screening for [facility] Test 11:27:01 malignant neoplasm of cervix (procedure) [code = 103836822] Future Scheduled 2022-08-01 BREAST CANCER [facility] Test 11:27:01 SCREENING [code = BREAST CANCER SCREENING] Future Scheduled 2022-08-01 COLONOSCOPY SCREENING [facility] Test 11:27:01 [code = COLONOSCOPY SCREENING] Future Scheduled 2022-08-01 SHINGLES VACCINES (1 Met [facility] Test 11:27:01 of 2) [code = SHINGLES VACCINES (1 of 2)] Future Scheduled 2022-08-01 COVID-19 VACCINE ([facility] - [facility] Test 11:27:01 Booster for Pfizer series) [code = COVID-19 VACCINE (4 - Booster for Pfizer series)] Future Scheduled 2022-08-01 INFLUENZA VACCINE [facility] Test 11:27:01 [code = INFLUENZA VACCINE] Future Scheduled 2022-07-19 IMM Influenza [place] [facility] Test 00:00:00 Seasonal (>/= 19 yrs) [code = IMM Influenza Seasonal (>/= 19 yrs)] Future Scheduled 2022-07-19 IMM Influenza [place] [facility] Test 00:00:00 Seasonal (>/= 19 yrs) [code = IMM Influenza Seasonal (>/= 19 yrs)] Future Scheduled 2022-06-24 HEPATITIS B VACCINES Met [facility] Test 08:40:37 (1 of 3 - 3-dose series) [code = HEPATITIS B VACCINES (1 of 3 - 3-dose series)] Future Scheduled 2022-06-24 Hepatitis C screening [facility] Test 08:40:37 (procedure) [code = 803679800] Future Scheduled 2022-06-24 Screening for [facility] Test 08:40:37 malignant neoplasm of cervix (procedure) [code = 327359655] Future Scheduled 2022-06-24 BREAST CANCER [facility] Test 08:40:37 SCREENING [code = BREAST CANCER SCREENING] Future Scheduled 2022-06-24 COLONOSCOPY SCREENING [facility] Test 08:40:37 [code = COLONOSCOPY SCREENING] Future Scheduled 2022-06-24 SHINGLES VACCINES (1 Met [facility] Test 08:40:37 of 2) [code = SHINGLES VACCINES (1 of 2)] Future Scheduled 2022-06-24 COVID-19 VACCINE (4 - Me [facility] Test 08:40:37 Booster for Pfizer series) [code = COVID-19 VACCINE (4 - Booster for Pfizer series)] Future Scheduled 2022-06-24 INFLUENZA VACCINE [facility] Test 08:40:37 [code = INFLUENZA VACCINE] Future Scheduled 2021-06-21 COVID-19 Vaccine (3 - [facility] Test 00:00:00 Booster for Pfizer series) [code = COVID-19 Vaccine (3 - Booster for Pfizer series)] Future Scheduled 2021-03-16 COVID-19 Vaccine (3 - [facility] Test 00:00:00 Booster for Pfizer series) [code = COVID-19 Vaccine (3 - Booster for Pfizer series)] Future Scheduled 2010 [facility] [place] [facility]:00 malignant neoplasm of colon (procedure) [code = 276114184] Future Scheduled 2010 [facility] [place] [facility] Test 00:00:00 malignant neoplasm of colon (procedure) [code = 645273488] Future Scheduled 2000 [facility] Test 00:00:00 (Yearly) [code = Breast Cancer Scrn (Yearly)] Future Scheduled 2000 [facility] Test 00:00:00 (Yearly) [code = Breast Cancer Scrn (Yearly)] Future Scheduled 1990 [facility] [place] [facility] Test 00:00:00 malignant neoplasm of cervix (procedure) [code = 709148030] Future Scheduled 1990 [facility] [place] [facility] Test 00:00:00 malignant neoplasm of cervix (procedure) [code = 136698277] Future Scheduled 1990 [facility] [place] [facility] Test 00:00:00 malignant neoplasm of cervix (procedure) [code = 554385286] Future Scheduled 1990 [facility] [place] [facility] Test 00:00:00 malignant neoplasm of cervix (procedure) [code = 574623089] Future Scheduled 1960 Fluoride Varnish [facility] Test 00:00:00 [code = Fluoride Varnish] Future Scheduled 1960 Fluoride Varnish [facility] Test 00:00:00 [code = Fluoride Varnish] Encounters Start End Encounter Admission Attending Care Care Encounter Source Date/Time Date/Time Type Type Clinicians Facility Department ID 2021-08-19 Emergency [facility] [id number] [facility] 2022-07-25 Office Tomas, 1.2.840.1 [id number] Methodi 10:45:00 11:30:58 Visit Sudhakar 17864.1.1 336 3.430.2.7 Hospit a .3.088171 l .8 2022-07-25 2022-07-25 Travel 1.2.840.1 1.2.147.118 [id number] Methodi 00:00:00 00:00:[address] 3.430.2.7 0.2.7.3.698 Ho spita .3.307857 084.8 l .8 2022-07-25 2022-07-25 Outpatient TOMAS, [facility] [id number] [place] 00:00:00 00:00:00 [address] 2022-07-23 2022-07-23 Travel 1.2.840.1 1.2.696.033 [id number] Methodi 00:00:00 00:00:[address] 3.430.2.7 0.2.7.3.698 Ho spita .3.632672 084.8 l .8 2022-07-21 2022-07-21 Telephone Tomas, 1.2.840.1 [id number] Methodi 00:00:00 00:00:[address] 3.430.2.7 Hospit a .3.294437 l .8 2022-07-21 2022-07-21 Travel 1.2.840.1 1.2.304.245 [id number] Methodi 00:00:00 00:00:[address] 3.430.2.7 0.2.7.3.698 Ho spita .3.099273 084.8 l .8 2022-06-27 2022-06-27 Telephone Tomas, 1.2.840.1 [id number] Methodi 00:00:00 00:00:[address] 3.430.2.7 Hospit a .3.300731 l .8 2022-06-20 2022-06-20 Orders Tomas, 1.2.840.1 [id number] Methodi 00:00:00 00:00:00 Only Wondiful [address]1995.1.[address] 3.430.2.7 Hospit a .3.484372 l .8 2022-06-20 2022-06-20 Orders Tomas, 1.2.840.1 [id number] Methodi 00:00:00 00:00:00 Only Wondiful 12499.1.[address] 3.430.2.7 Hospit a .3.558143 l .8 2022-06-10 2022-06-10 Office Tomas, 1.2.840.1 [id number] [id number] Methodi 15:30:00 15:44:47 Visit Wondiful 72752.1.[address] 3.430.2.7 Hospit a .3.878402 l .8 2022-06-10 2022-06-10 Office [place], 1.2.840.1 [id number] [id number] Methodi 15:30:00 15:44:47 Visit Wondiful 94623.1.[address] 3.430.2.7 Hospit a .3.846856 l .8 2022-06-10 2022-06-10 Travel 1.2.840.1 1.2.255.824 [id number] Methodi 00:00:00 00:00:[address] 3.430.2.7 0.2.7.3.698 Ho spita .3.907131 084.8 l .8 2022-06-10 2022-06-10 Travel 1.2.840.1 1.2.020.278 3844 [id number] Methodi 00:00:00 00:00:[address] 3.430.2.7 0.2.7.3.698 Ho spita .3.125173 084.8 l .8 2022-06-10 2022-06-10 Outpatient TOMAS [facility] [id number] [place] 00:00:00 00:00:[address] 2022-05-23 2022-05-23 Outpatient Bart POSEY [facility] [id number] Univers 14:38:07 23:59:00 MAKI ity of [facility] 2022-05-23 2022-05-23 [facility] 1.2.840.114 [id number] Univers 14:38:07 23:59:00 Encounter Maki PARRA 350.1.13.10 [place] [id number] [facility] [address] 2022-05-23 2022-05-23 Orders Doctor JENNI 1.2.840.114 [id number] Univers 00:00:00 00:00:00 Only Unassigned, CHAITANYA 350.1.13.10 ity of [place] [facility] 4.2.7.2.686 Hermes as [id number] [facility] 00[address] Branch 2022-05-10 2022-05-[address] [facility] 1.2.840.114 [id number] Univers 00:00:00 00:00:00 Wondiful A HEALTH 350.1.13.10 ity [facility] 4.2.7.2.686 Hermes as AQUILES?BLEA [id number] [address] MEDICAL OFFICE BUILDING 2022-05-10 2022-05-10 Dennis Marin, 1.2.840.1 [id number] Methodi 00:00:00 00:00:[address] 3.430.2.7 Hospit a .3.945530 l .8 2022-05-10 2022-05-10 Dennis Marin, 1.2.840.1 [id number] Methodi 00:00:00 00:00:[address] 3.430.2.7 Hospit a .3.349687 l .8 2022-04-15 2022-04-15 Travel 1.2.840.1 1.2.691.740 6924 [id number] Methodi 00:00:00 00:00:[address] 3.430.2.7 0.2.7.3.698 Ho spita .3.119715 084.8 l .8 2022-04-15 2022-04-15 Travel 1.2.840.1 1.2.414.567 2843 [id number] Methodi 00:00:00 00:00:[address] 3.430.2.7 0.2.7.3.698 Ho spita .3.816292 084.8 l .8 2022-04-12 2022-04-12 [facility] 1.2.840.114 [id number] Univers 00:00:00 00:00:00 Wondiful A HEALTH 350.1.13.10 ity of [facility] 4.2.7.2.686 Hermes as AQUILES?BLEA [phone] [address] OFFICE [facility] 2022-03-27 2022-03-27 [facility] [id number] Univers 15:30:00 15:52:07 MAKI itmansi of [facility] 2022-03-27 2022-03-27 Office [facility] 1.2.840.114 [id number] Univers 15:30:00 15:52:07 Visit Maki PARRA 350.1.13.10 ity [place] [id number] [facility] 134 [facility] 2021-11-15 2021-11-15 [facility] 1.2.840.114 [id number] Univers 00:00:00 00:00:00 Wondiful A HEALTH 350.1.13.10 ity of [facility] 4.2.7.2.686 Hermes as AQUILES?BLEA [id number] [facility] [address] [place] MEDICAL OFFICE BUILDING 2021-11-09 2021-11-09 Orders JENNI Marin 1.2.840.114 [id number] Univers 00:00:00 00:00:00 Only Wondiful A CHAITANYA 350.1.13.10 ity of [facility] 4.2.7.2.686 Hermes as [id number] [address] 2021-10-22 2021-10-22 Orders Doctor ARTEAGA 1.2.840.114 [id number] Univers 00:00:00 00:00:00 Only Unassigned, CHAITANYA 350.1.13.10 ity of [place] [facility] 4.2.7.2.686 Hermes as [id number] [address] 2021-10-02 2021-10-03 Outpatient nullFlavo MNA [id number] Memoria 14:15:00 05:59:59 r Neurology 05 dileep Vázquez 2021-10-02 2021-10-03 Outpatient nullFlavo MNA [id number] Memoria 14:15:00 05:59:59 r Neurology 05 l Lyman Gurpreet 2021-10-02 2021-10-02 Outpatient Chrissy MISCHER MHMISCHER [id number] 08:15:00 23:59:59 Hussein Yolanda Aguilera 2021-10-02 2021-10-02 Outpatient MHIE MHIE [id number] [facility] 08:15:00 08:15:00 05 dileep Gurpreet 2021-10-02 2021-10-02 [facility] 1.2.840.114 [id number] Univers 00:00:00 00:00:00 Wondiful A HEALTH 350.1.13.10 ity of [facility] 4.2.7.2.686 Hermes as AQUILES?BLEA [id number] [address] OFFICE [facility] 2021-09-17 2021-09-17 Office Tomas [facility] 1.2.840.114 [id number] Univers 16:06:16 17:22:06 Visit Wondiful A HEALTH 350.1.13.10 ity of [place] 4.2.7.2.686 Hermes as AQUILES?BLEA [id number] [address] OFFICE [facility] 2021-09-17 2021-09-17 Outpatient R TOMAS [facility] [id number] Univers 16:00:00 17:22:06 WONDIFUL ity o f [facility] 2021-06-17 2021-06-17 Office [facility] 1.2.840.114 [id number] Univers 15:03:08 16:14:26 Visit Wondiful A Health 350.1.13.10 ity of [place] 4.2.7.2.686 Hermes as Aquiles?Blea [phone] N[place] moon velez [address] [place] [address] 2021-06-17 2021-06-17 Outpatient Bart MARIN [facility] [id number] Univers 15:15:00 15:15:00 WONDIFUL ity o f [facility] 2021-06-17 2021-06-17 Letter [facility] 1.2.840.114 [id number] Univers 00:00:00 00:00:00 (Out) Maki L [place] 350.1.13.10 [place] [id number] [address] 2021-06-17 2021-06-17 Letter [facility] 1.2.840.114 [id number] Univers 00:00:00 00:00:00 (Out) Maki L [place] 350.1.13.10 [place] [id number] [facility] nal [address] [place] [address] 2021-06-15 2021-06-15 [facility]ill [facility] 1.2.840.114 [id number] Univers 00:00:00 00:00:00 Wondiful A Health 350.1.13.10 ity of [place] 4.2.7.2.686 Hermes as Aquiles?Blea [phone] [place] moon [address] 2021-05-20 2021-05-20 Outpatient LACKULWINDERS, [facility] [id number] [place] 00:00:00 00:00:00 URSULA Heal th 2021-05-09 2021-05-09 Outpatient [facility] [id number] [place] 00:00:00 00:00:00 Health 2021-05-09 2021-05-09 Outpatient BATRAM, [facility] [id number] [place] 00:00:00 00:00:00 JAN Health 2021-04-02 2021-04-03 [place] [id number] [place] 14:15:00 04:59:59 r Neurology 04 l Julian Vázquez 2021-04-02 2021-04-03 Outpatient nullFlavo MNA [id number] Memoria 14:15:00 04:59:59 r Neurology 04 l Julian Vázquez 2021-04-02 2021-04-02 Outpatient TASNEEM LoweSCHER SONIAMISCHER [id number] 09:15:00 23:59:59 Hussein 04 Willy 2021-04-02 2021-04-02 Outpatient MHIE MHIE [id number] [place] 09:15:00 09:15:00 04 l Gurpreet 2021-04-01 2021-04-01 Outpatient R TOMAS, [facility] [id number] Univers 14:30:00 14:30:00 WONDIFUL ity o f [facility] 2021-04-01 2021-04-01 Outpatient R TOMAS, [facility] [id number] Univers 14:30:00 14:30:00 WONDIFUL ity o f [facility] 2021-03-29 2021-03-29 Outpatient R ADUM, [facility] [id number] [facility] 00:00:00 00:00:00 [facility] 2021-03-26 2021-03-26 Outpatient R ADUM, [facility] [id number] [facility] 16:00:00 16:00:00 [facility] 2021-03-26 2021-03-26 Outpatient R ADUM, [facility] [id number] Univers 15:00:00 15:00:00 [facility] 2021-03-26 2021-03-26 Outpatient R ADUM, [facility] [id number] Univers 15:00:00 15:00:00 [facility] 2021-03-25 2021-03-25 Outpatient [facility] [id number] [place] 15:07:49 15:27:33 [facility] 2021-03-25 2021-03-25 Outpatient JANAGLADYS [facility] [id number] [place] 12:21:45 12:32:17 Health 2021-03-25 2021-03-25 Outpatient KURTIS [facility] [id number] [place] 11:06:29 12:15:33 [facility] 2021-03-25 2021-03-25 Outpatient LACERAS, [facility] [id number] [place] 00:00:00 00:00:00 [facility]ULA [facility] 2021-03-15 2021-03-15 [facility] [id number] [facility] 00:00:00 00:00:00 [facility] [id number] [facility] [place] 4.2.7.2.686 Hermes as Professio [phone] Nj dical nal [address] [place] [address] Office [facility] One 2021-03-08 2021-03-08 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 [id number] Univers 14:57:36 15:17:36 Visit Asael [facility] 350.1.13.1 0 [facility] [place] 4.2.7.2.686 [facility] as Professio [phone] [facility] nal [address] [place] [address] One 2021-03-08 2021-03-08 [facility] [id number] [facility] 13:15:14 14:38:44 Visit [facility] 350.1.13.10 [facility] [place] 4.2.7.2.686 [facility] [phone] [address] One 2021-03-08 2021-03-08 Outpatient [facility] [id number] [facility] 13:30:00 13:30:00 WONDIFUL ity o f [facility] 2021-03-08 2021-03-08 [facility] [id number] [facility] 00:00:00 00:00:00 [facility] 350.1.13.10 [facility] [place] 4.2.7.2.686 [facility]io [phone] [address] Office [facility] One 2021-02-28 2021-02-28 Ambulatory nullFlavo MNA [id number] [facility] 18:45:00 18:45:00 Pre-Reg r Neurology 00 l Lyman Gurpreet 2021-02-28 2021-02-28 Ambulatory nullFlavo MNA [id number] [facility] 18:45:00 18:45:00 Pre-Reg r Neurology 00 l Julian Vázquez 2021-02-28 2021-02-28 [id number] 13:45:00 13:45:00 Hussein Willy 2021-02-25 2021-02-25 Outpatient Rutledge_L MMG MMG [id number] [place] 12:04:00 12:04:00 [facility] 2021-02-18 2021-02-19 Outpatient nullFlavo MNA [id number] [facility] 21:15:00 04:59:59 r Neurology 03 l Julian Vázquez 2021-02-18 2021-02-19 Outpatient nullFlavo MNA [id number] [facility] 21:15:00 04:59:59 r Neurology 03 l Julian Vázquez 2021-02-18 2021-02-18 [facility] [id number] 16:15:00 23:59:59 Hussein 03 Willy 2021-02-18 2021-02-18 Outpatient MHIE MHIE [id number] [place] 16:15:00 16:15:00 03 dileep Vázquez 2021-02-13 2021-02-13 Ambulatory nullFlavo MNA [id number] [facility] 21:00:00 21:00:00 Pre-Reg r Neurology 01 l Julian Vázquez 2021-02-13 2021-02-13 Ambulatory nullFlavo MNA [id number] [facility] 21:00:00 21:00:00 Pre-Reg r Neurology 01 l Julian Vázquez 2021-02-13 2021-02-13 [facility] [id number] 16:00:00 16:00:00 Hussein Willy 2021-02-07 2021-02-08 Outpatient nullFlavo MNA [id number] [facility] 19:00:00 04:59:59 r Neurology 02 l Julian Vázquez 2021-02-07 2021-02-08 Outpatient nullFlavo MNA [id number] Memoria 19:00:00 04:59:59 r Neurology 02 l Julian Vázquez 2021-02-07 2021-02-07 Outpatient SINAI Lowe RAYRAY [id number] 14:00:00 23:59:59 Hussein Aguilera Results Test Description Test Time Test Comments Results Result Comments Source Urine culture 2022-07-27 07:01:00 Test Item Value Reference Range Interpretation Comme nts Urine culture (test SEE NOTE CULTURE , URINE, ROUTINE Micro code = 630-4) Number: [id number] Test Status: Final Specimen Source: Not given Specimen Qualit y: Adequate Result: 50,000- 100,000 CFU/mL of Non-uropathogen ic Gram positive organism May re present colonizers from external and internal genita elena. No further testing (includ ing susceptibility) will be performed. RAC (test code = RAC) Performing Organization Information: Site ID: RGA Name: [facility] Address: [address] [place] [phone] Director: Adis Gonzalez [facility] urinalysis [id number] 16:12:57 Test Item Value Reference Range Interpretation Comments Color urine, POC (test Yellow code = 4357465) Clarity urine, POC (test Clear code = 9954432) Glucose urine, POC (test Negative Negative code = 0960624) Bilirubin urine, POC Negative Negative (test code = 8407648) Ketones urine, POC (test Negative Negative code = 0240460) Specific gravity urine, 1.005-1.030 POC (test code = 0622044) Blood urine, POC (test Trace Negative A code = 4402024) pH urine, POC (test code See_Comment [A utomated message] = 5063577) The system whic h generated this result transmitted ref erence range: 5.0, 5.5 , 6.0, 6.5, 7.0, 7.5, 8.0, 8.5. The refere nce range was not u sed to interpret this result as normal/abnor mal. Protein urine, POC (test Negative Negative code = 9524470) Urobilinogen urine, POC <2.0 See_Comment [Au tomated message] (test code = 9505479) The sy stem which generated this result transmitted ref erence range: <=2.0. T he reference range was not used to int erpret this result as normal/abnormal . Nitrite urine, POC (test Negative Negative code = 3232757) Leukocyte esterase Trace Negative A urine, POC (test code = 3723909) Lab Interpretation (test Abnormal code = 50912-4) [facility] [id number] 04:21:00 Test Item Value Reference Range Interpretation Comments Glucose (test code 99 mg/dL 65-99 Fasting = 2345-7) reference interval BUN (test code = 18 mg/dL 7-25 3094-0) Creatinine (test 0.84 mg/dL 0.5-1.05 code = 2160-0) eGFR (test code = See_Comment The eGFR i s based 8257) on the CKD-EPI 2020 equation. To calculate the n ew eGFR from a previous Creatinine or Cystatin Cresul t, go to https://www.kid ne y.org/profjodie parsons/kdoqi/gfr%5F ca lculator [Automated message] The system which generated this result transmitted reference range : > OR = 60 mL/min/1.73m2. The reference range was not used to interpr et this result as normal/abnormal . BUN/creatinine NOT APPLICABLE See_Comment [Automated ratio (test code = message] The 6947-3) system which generated this result transmitted reference range : 6 - 22 (calc). The reference range was not used to interpr et this result as normal/abnormal . Sodium (test code 143 mmol/L 135-146 = 2951-2) Potassium (test 4.3 mmol/L 3.5-5.3 code = 2823-3) Chloride (test 110 mmol/L 98-110 code = 2075-0) CO2 (test code = 28 mmol/L 20-32 2027-) Calcium (test code 9.9 mg/dL 8.6-10.4 = 29688-0) Protein (test code 6.6 g/dL 6.1-8.1 = 2885-2) Albumin, S (test 4.1 g/dL 3.6-5.1 code = 1751-7) Globulin, total See_Comment [Automated (test code = message] The 97554-3) system which generated this result transmitted reference range : 1.9 - 3.7 g/dL (calc). The reference range was not used to interpret this result as normal/abnormal . Albumin/globulin See_Comment [Automated ratio (test code = message] The 1750) system which generated this result transmitted reference range : 1.0 - 2.5 (calc ). The reference range was not used to interpr et this result as normal/abnormal . Total bilirubin 0.3 mg/dL 0.2-1.2 (test code = 1975-2) Alkaline 89 U/L 37-153 phosphatase (test code = 6768-6) AST (test code = 18 U/L 10- 1920-8) ALT (test code = 25 U/L 04-16-6) BILL (test code = FASTING:YES BILL) FASTING: YES RAC (test code = Performing RAC) Organization Information: Site ID: RGA Name: [facility] Lab Address: [address] [place] [phone] Director: Adis Gonzalez [facility] [id number] 04:21:00 Test Item Value Reference Range Interpretation [...] calculated (test <100 Desira ble code = 01320-2) range <100 m g/dL for primary prevention; <70 mg/dL for patients with C HD or diabetic patients with > or = 2 CHD risk factors. LDL-C is now calculated using the Donell-Freire calculation, which is a validated novel method providin g better accuracy than the Friedewald equation in the estimation of LDL-C. Donell S S et al. BALJINDER. 2013;310(19): 6599-6372 (http://educati on .[employer] .com/faq/URL542 ) Cholesterol/HDL See_Comment [Automated ratio (test code = message] The 9830-1) system which generated this result transmitted reference range : <5.0 (calc). Th e reference range was not used to interpret this result as normal/abnormal . Non-HDL cholesterol See_Comment For anabell ents with (test code = diabetes plus 1 34164-7) major ASCVD ris k factor, treatin g [...] RAC) Organization Information: Site ID: RGA Name: [facility] Lab Address: [address] [place] [phone] Director: Adis Gonzalez Lab Interpretation Abnormal (test code = 29029-4) [facility] CenterHemoglobin [id number] 04:21:00 Test Item Value Reference Interpretation Comments Range Hemoglobin A1C See_Comment H For someone w ithout (test code = known diabetes, a 4548-4) hemoglobin A1c value between 5.7% an d 6.4% is consist ent withprediabetes and should be confi rmed with a follow-u p test. For someo ne with known diab etes, a value <7%indicates that their diabetes is well controlled . K4puiejzvw shou ld be individualized based on duration [...] = Performing RAC) Organization Information: Site ID: TORSTEN Name: [facility] Address: [address] [place] [address] Director: Adis Gonzalez Lab Interpretation Abnormal (test code = 97529-0) [facility] CenterVitamin D 25 hydroxy [id number] 04:21:00 Test Item Value Reference Range Interpretation Comments Vitamin D, 38 ng/mL 30-100 Vitamin D Statu s 25-hydroxy (test 25-OH Vitam in D: code = 1988-12) Deficiency: < 20 ng/mLInsufficie ncy : 20 - 29 ng/mLOptimal: > or = 30 ng/mL F or 25-OH Vitamin D testing on patients on D2-supplementat ion and patients fo r whom quantitati on of D2 and D3 fractions is required, the QuestAssureD(TM )25 -OH VIT D, (D2,D3), LC/MS/ MS is recommended: order code 9288 8 (patients >2yrs).See Note 1 Note 1 For additional information, please refer to http://educatio n.Q uestDiagnostics .co m/faq/VCY476 (T his link is being provided for informational/e lan ational purpose s only.) BILL (test code = FASTING:YES FASTING: BILL) YES RAC (test code = Performing RAC) Organization Information: Site ID: TORSTEN Name: [facility] Lab Address: [address] [place] [address] Director: Adis Gonzalez [facility] CenterComprehensive metabolic [id number] 04:21:00 Test Item Value Reference Range Interpretation Comments Glucose (test code 99 mg/dL 65-99 Fasting = 2345-7) reference interval BUN (test code = 18 mg/dL 7-25 3094-0) Creatinine (test 0.84 mg/dL 0.50-1.05 code = 2160-0) eGFR (test code = See_Comment The eGFR i s based 8257) on the CKD-EPI 2020 equation. To calculate the n ew eGFR from a previous Creatinine or Cystatin Cresul t, go to https://www.kid ne y.org/profjodie na ls/kdoqi/gfr%5F ca lculator [Automated message] The system which generated this result transmitted reference range : > OR = 60 mL/min/1.73m2. The reference range was not used to interpr et this result as normal/abnormal . BUN/creatinine NOT APPLICABLE See_Comment [Automated ratio (test code = message] The 3097-3) system which generated this result transmitted reference range : 6 - 22 (calc). The reference range was not used to interpr et this result as normal/abnormal . Sodium (test code 143 mmol/L 135-146 = 2951-2) Potassium (test 4.3 mmol/L 3.5-5.3 code = 2823-3) Chloride (test 110 mmol/L 98-110 code = 2075-0) CO2 (test code = 28 mmol/L 20-32 2027-9) Calcium (test code 9.9 mg/dL 8.6-10.4 = 36050-4) Protein (test code 6.6 g/dL 6.1-8.1 = 2885-2) Albumin, S (test 4.1 g/dL 3.6-5.1 code = 1751-7) Globulin, total See_Comment [Automated (test code = message] The 98126-7) system which generated this result transmitted reference range : 1.9 - 3.7 g/dL (calc). The reference range was not used to interpret this result as normal/abnormal . Albumin/globulin See_Comment [Automated ratio (test code = message] The 1759-0) system which generated this result transmitted reference range : 1.0 - 2.5 (calc ). The reference range was not used to interpr et this result as normal/abnormal . Total bilirubin 0.3 mg/dL 0.2-1.2 (test code = 1974-2) Alkaline 89 U/L 37-153 phosphatase (test code = 6768-6) AST (test code = 18 U/L 10-35 1920-8) ALT (test code = 25 U/L 6-29 1741-6) BILL (test code = FASTING:YES BILL) FASTING: YES RAC (test code = Performing RAC) Organization Information: Site ID: RGA Name: [facility] Lab Address: [address] [place] [phone] Director: Adis Gonzalez [facility] CenterLipid [id number] 04:21:00 Test Item Value Reference Range Interpretation [...] calculated (test <100 Desira ble code = 81855-5) range <100 m g/dL for primary prevention; <70 mg/dL for patients with C HD or diabetic patients with > or = 2 CHD risk factors. LDL-C is now calculated using the Donell-Tani calculation, which is a validated novel method providin g better accuracy than the Friedewald equation in the estimation of LDL-C. Donell S S et al. BALJINDER. 2013;310(19): 0741-0887 (http://educati on .[employer] .com/faq/RUI859 ) Cholesterol/HDL See_Comment [Automated ratio (test code = message] The 9830-1) system which generated this result transmitted reference range : <5.0 (calc). Th e reference range was not used to interpret this result as normal/abnormal . Non-HDL cholesterol See_Comment For anabell ents with (test code = diabetes plus 1 65104-7) major ASCVD ris k factor, treatin g [...] = Performing RAC) Organization Information: Site ID: TORSTEN Name: [facility] Lab Address: [address] [place] [address] Director: Adis Gonzalez Lab Interpretation Abnormal (test code = 53565-7) [facility] CenterHemoglobin [id number] 04:21:00 Test Item Value Reference Interpretation Comments Range Hemoglobin A1C See_Comment H For someone w andre (test code = known diabetes, a 4548-4) hemoglobin A1c value between 5.7% an d 6.4% is consist ent withprediabetes and should be confi rmed with a follow-u p test. For someo ne with known diab etes, a value <7%indicates that their diabetes is well controlled . B2firxkuxy shou ld be individualized based on duration [...] = Performing RAC) Organization Information: Site ID: TORSTEN Name: [facility] Lab Address: [address] [place] [phone] Director: Adis Gonzalez Lab Interpretation Abnormal (test code = 90891-1) [facility] CenterVitamin D 25 hydroxy [id number] 04:21:00 Test Item Value Reference Range Interpretation Comments Vitamin D, 38 ng/mL 30-100 Vitamin D Statu s 25-hydroxy (test 25-OH Vitam in D: code = 1988-) Deficiency: < 20 ng/mLInsufficie ncy : 20 [...] please refer to http://educatio n.Q uestDiagnostics .co m/faq/GTP841 (T his link is being provided for informational/e lan ational purpose s only.) BILL (test code = FASTING:YES FASTING: BILL) YES RAC (test code = Performing RAC) Organization Information: Site ID: RGA Name: [facility] Lab Address: [address] [place] [phone] Director: Adis Gonzalez [address]2022-08-24 01:00:32 Test Item Value Reference Range Interpretation Comments Ventricular rate (test code = 253) Atrial rate (test code = 255) IL interval (test code = 266) QRSD interval (test code = 260) QT interval (test code = 264) QTC interval (test code = 265) P axis 1 (test code = 267) QRS axis 1 (test code = 268) T wave axis (test code = 270) EKG impression (test Sinus code = 273) bradycardia-Otherwise normal ECG-No previous ECGs available-Electronica lly Signed By Sudhakar Marin MD ([id number]) on 06/10/2022 8:00:25 PM [place] [address] [id number] 01:00:32 Test Item Value Reference Range Interpretation Comments Ventricular rate (test code = 253) Atrial rate (test code = 255) IL interval (test code = 266) QRSD interval (test code = 260) QT interval (test code = 264) QTC interval (test code = 265) P axis 1 (test code = 267) QRS axis 1 (test code = 268) T wave axis (test code = 270) EKG impression (test Sinus code = 273) bradycardia-Otherwise normal ECG-No previous ECGs available-Electronica lly Signed By Sudhakar Marin MD ([id number]) on 06/10/2022 8:00:25 PM [facility]
[2022-08-07 18:54] LABS: Absolute Lymphocytes (CBC) 3.8 K/uL (0.7-4.9); Hematocrit 40.2 % (36.0-45.0); Lymphocytes % 50.4 % (15.3-44.8); MPV 9.9 fL (7.6-11.3); RBC Red Blood Cell Count 4.32 M/uL (3.86-4.86)
[2022-08-07] MEDS ORDERED: NITROGLYCERIN 0.4 MG/TAB SL ONE (19:03)
[2022-08-07] MEDS ORDERED: ASPIRIN 81 MG CHEWABLE TABLET ONE (19:03)
[2022-08-07 19:12] LABS: Potassium 3.9 mmol/L (3.5-5.1); Troponin High Sensitivity 7.4 pg/mL (<58.9)
[2022-08-07 19:13] LABS: Protime INR 0.95
[2022-08-07 19:17] LABS: Urine Blood Trace-intact (Negative); Urine Glucose Negative (Negative); Urine Protein Negative (Negative)
--- NOTE | 2022-08-07 19:18 | RAD REPORT ---
EXAM DESCRIPTION: Dori Single View08/07/2022 6:56 pm CLINICAL HISTORY: Chest pain COMPARISON: 2020 FINDINGS: The lungs appear clear of acute infiltrate. The heart is normal size IMPRESSION: No acute abnormalities displayed
[2022-08-07 19:38] LABS: Urine Bacteria <20 /HPF (<20); Urine RBC <5 /HPF (None Seen)
--- NOTE | 2022-08-07 23:55 | EDPHYS ---
Physician Documentation [facility] Name: Sommer Thibodeaux Age: 61 yrs Sex: Female : 1960 Arrival Date: 08/07/2022 Time: 18:15 Bed 4 Private MD: ED Physician Varsha Darnell HPI: 08/07 18:59 This 61 yrs old Black Female presents to ER via Ambulatory with complaints of Chest cp Pain. 18:59 The patient or guardian reports chest pain that is located primarily in the anterior cp chest wall, left. 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 The pain does not radiate. cp 18:59 The chest pain is described as sharp. Duration: The patient or guardian reports a cp single episode, improving. Historical: - Allergies: 18:26 No Known Allergies; jh5 - PMHx: 18:21 Hypertension; jh5 - PSHx: 18:26 Lithotripsy; tubes tied; 5 - Immunization history:: Adult Immunizations up to date. - Social history:: Smoking status: Patient denies any tobacco usage or history of. ROS: 19:05 Constitutional: Negative for body aches, chills, fever, poor PO intake. cp 19:05 Eyes: Negative for injury, pain, redness, and discharge. cp 19:05 ENT: Negative for drainage from ear(s), ear pain, sore throat, difficulty swallowing, difficulty handling secretions. 19:05 Cardiovascular: Positive for chest pain, Negative for edema, palpitations. 19:05 Respiratory: Negative for cough, shortness of breath, wheezing. 19:05 Abdomen/GI: Negative for abdominal pain, nausea, vomiting, and diarrhea. 19:05 Back: Negative for pain at rest, pain with movement. cp 19:05 Neuro: Negative for altered mental status, dizziness, headache, numbness, syncope, weakness. Exam: 19:00 ECG was reviewed by the Attending Physician. cp 19:08 Constitutional: The patient appears in no acute distress, alert, awake, cp non-diaphoretic, non-toxic, well developed, well nourished. 19:08 Head/Face: Normocephalic, atraumatic. cp 19:08 Eyes: Periorbital structures: appear normal, Conjunctiva: normal, Sclera: no appreciated abnormality, Lids and lashes: appear normal, bilaterally. 19:08 ENT: External ear(s): are unremarkable, Ear canal(s): are normal, clear, TM's: Nose: is normal, Mouth: Lips: moist, Oral mucosa: pink and intact, moist. 19:08 Neck: ROM/movement: is normal, is supple, without pain, no range of motions limitations. 19:08 Chest/axilla: Palpation: crepitus, is not appreciated, tenderness, is not appreciated. 19:08 Cardiovascular: Rate: normal, Rhythm: regular. 19:08 Respiratory: the patient does not display signs of respiratory distress, Respirations: 19:08 Abdomen/GI: Inspection: abdomen appears normal, Bowel sounds: active, all quadrants, Palpation: abdomen is soft and non-tender, in all quadrants. 19:08 Back: pain, is absent, ROM is normal. 19:08 Neuro: Orientation: to person, place \\T\\ time. Mentation: is normal, Cerebellar function: is grossly normal, Motor: moves all fours, strength is normal, Sensation: is normal. 23:00 ECG was reviewed by the Attending Physician. Vital Signs: 18:18 BP 172 / 88; Pulse 53; Resp 18; Temp 98.6; Pulse Ox 98% on R/A; Weight 98.88 kg; Height jh5 5 ft. 6 in. (167.64 cm); Pain 7/10; 19:05 BP 144 / 84; Pulse 61; Resp 18; Pulse Ox 100% ; Pain 7/10; mb9 19:40 BP 141 / 84; Pulse 58; Resp 16 S; Pulse Ox 96% on R/A; ha1 18:18 Body Mass Index 35.18 (98.88 kg, 167.64 cm) 5 MDM: 18:45 Differential diagnosis: acute myocardial infarction, chest wall pain, pneumonia, cp pneumothorax, pulmonary embolus, stable angina, thoracic aortic disection, unstable angina. 18:50 Patient medically screened. [facility] 23:55 Data reviewed: vital signs, nurses notes, lab test result(s), EKG, radiologic studies, cp plain films. Test interpretation: by ED physician or midlevel provider: ECG, plain radiologic studies. 23:55 The patient was not given aspirin in the Emergency Department. Administered by EMS. 23:55 ED course: VSS. Pain resolved. Discussed results of labs, EKG and radiology studies. cp Initial and repeat EKGs and troponin were negative. Patient declined admission for observation and cardiology consult at this time. Will discharge to home for continued monitoring. 08/07 18:34 Order name: Basic Metabolic Panel; Complete Time: 19:42 mb9 08/07 19:42 Interpretation: Normal except: BUN 19; GFR 72. cp 08/07 18:34 Order name: CBC with Diff; Complete Time: 19:42 mb9 08/07 19:42 Interpretation: Normal except: YOCASTA% 37.7; LYM% 50.4. cp 08/07 18:34 Order name: Troponin HS; Complete Time: 19:42 mb9 08/07 18:58 Order name: PT-INR; Complete Time: 19:42 cp 08/07 18:58 Order name: Ptt, Activated; Complete Time: 19:42 cp 08/07 18:59 Order name: Urine Microscopic Only; Complete Time: 19:42 cp 08/07 18:34 Order name: XRAY Chest (1 view); Complete Time: 19:42 mb9 08/07 19:42 Interpretation: Report review. cp 08/07 18:34 Order name: EKG; Complete Time: 18:35 mb9 08/07 18:34 Order name: Cardiac monitoring; Complete Time: 18:50 mb9 08/07 18:34 Order name: EKG - Nurse/Tech; Complete Time: 19:00 mb9 08/07 19:18 Order name: Urine Dipstick-Ancillary; Complete Time: 19:42 EDMS 08/07 22:25 Order name: Troponin High Sensitivity; Complete Time: 23:49 cp 08/07 18:34 Order name: IV Saline Lock; Complete Time: 18:50 mb9 08/07 18:34 Order name: Labs collected and sent; Complete Time: 18:50 mb9 08/07 18:34 Order name: O2 Per Protocol; Complete Time: 18:50 mb9 08/07 18:34 Order name: O2 Sat Monitoring; Complete Time: 18:50 mb9 08/07 18:59 Order name: Urine Dipstick-Ancillary (obtain specimen); Complete Time: 19:36 cp 08/07 22:38 Order name: EKG - Nurse/Tech; Complete Time: 23:47 cp EC:00 Rate is 57 beats/min. Rhythm is regular. MD interval is normal. QRS interval is normal. cp QT interval is normal. T waves are Inverted in leads aVL, aVR. Interpreted by me. Reviewed by me. 23:00 Rate is 53 beats/min. Rhythm is regular. MD interval is normal. QRS interval is normal. cp QT interval is normal. T waves are Inverted in lead aVR. Interpreted by me. Reviewed by me. Administered Medications: 19:08 Drug: Nitroglycerin 0.4 mg Route: Sublingual; mb9 19:08 Drug: Aspirin Chewable Tablet 162 mg Route: PO; mb9 Disposition Summary: 08/07/22 23:54 Discharge Ordered Location: Home cp Problem: new cp Symptoms: have improved cp Condition: Stable cp Diagnosis - Chest pain, unspecified cp Followup: cp - With: Private Physician - When: 2 - 3 days - Reason: Recheck today's complaints Discharge Instructions: - Discharge Summary Sheet cp - Nonspecific Chest Pain, Adult cp - Aspirin and Your Heart cp Forms: - Medication Reconciliation Form cp - Thank You Letter cp - Antibiotic Education cp - Prescription Opioid Use cp Signatures: Dispatcher [employer] [facility] Ayad Leon MD MD cha Page, Corey, PA PA cp Laxmi Skinner, RN RN jh5 Lisa Boucher RN RN mb9 Corrections: (The following items were deleted from the chart) 19: 18:59 UA MICROSCOPIC+U.LAB.BRZ ordered. [facility] 08/08 21:55 08/07 18:59 Onset: today, cp cp
--- NOTE | 2022-08-07 23:55 | ER ---
Nurse's Notes [facility] [place] Name: Sommer Thibodeaux Age: 61 yrs Sex: Female : 1960 Arrival Date: 08/07/2022 Time: 18:15 Bed 4 Private MD: Diagnosis: Chest pain, unspecified Presentation: 08/07 18:18 Chief complaint: Patient states: chest pain on and off for about an hour, throbbing but jh5 i cant describe it. Pain is right up in here (Points to mid-left chest) ... I went to urgent care, didn't check in but went number 2 and when I wiped i had fresh bright red blood on the paper but i have hemorrhoids. My chest pain slowed down after i went to the bathroom but it's back. I saw the heart doctor last , i did have a kidney stone and he thought it not my heart and it my kidneys - next Thursday i go and he adrian to test me for all sean. [facility]; Dr. Jerrell Marie. Coronavirus screen: Vaccine status: Patient reports receiving the 2nd dose of the covid vaccine. Client denies travel out of the [place] in the last 14 days. Ebola Screen: Patient negative for fever greater than or equal to 101.5 degrees Fahrenheit, and additional compatible Ebola Virus Disease symptoms Patient denies exposure to infectious person. Patient denies travel to an Ebola-affected area in the 21 days before illness onset. Initial Sepsis Screen: Does the patient meet any 2 criteria? No. Patient's initial sepsis screen is negative. Does the patient have a suspected source of infection? No. Patient's initial sepsis screen is negative. Risk Assessment: Do you want to hurt yourself or someone else? Patient reports no desire to harm self or others. Onset of symptoms was August 07, 2022. 18:18 Method Of Arrival: Ambulatory [facility] 18:18 Acuity: VICTORIA 3 jh5 Triage Assessment: 18:21 General: Appears in no apparent distress. uncomfortable, obese, well groomed, well jh5 developed, well nourished, Behavior is calm, cooperative, appropriate for age. Pain: Complains of pain in chest. Cardiovascular: Reports chest pain. Historical: - Allergies: 18:26 No Known Allergies; jh5 - PMHx: 18:21 Hypertension; [facility] - PSHx: 18:26 Lithotripsy; tubes tied; [facility] - Immunization history:: Adult Immunizations up to date. - Social history:: Smoking status: Patient denies any tobacco usage or history of. Screenin:49 Abuse screen: Denies threats or abuse. Denies injuries from another. Nutritional mb8 screening: No deficits noted. Tuberculosis screening: No symptoms or risk factors identified. Fall Risk None identified. Assessment: 18:48 Pain: Complains of pain in anterior aspect of left upper chest Pain does not radiate. mb8 Quality of pain is described as pulsating, Pain began 1 day ago. Cardiovascular: Denies diaphoresis, fatigue, lightheadedness, nausea, palpitations, shortness of breath, syncope, vomiting, Capillary refill < 3 seconds Pulses are all present. are 2+ in right radial artery and left radial artery Rhythm is sinus rhythm Chest pain is described as mild. Respiratory: No deficits noted. 19:11 Reassessment: report given to BELÉN Larsen. mb9 19:36 General: Appears comfortable, Behavior is calm, cooperative. Pain: Complains of pain in ha1 chest Pain does not radiate. Quality of pain is described as pressure, Pain began 3 hours ago. Pain: Pain currently is 5 out of 10 on a pain scale. Neuro: Neuro: Level of Consciousness is awake, alert, Oriented to person, place, time, situation, Speech is normal. Cardiovascular: Capillary refill < 3 seconds Patient's skin is warm and dry. Pulses are all present. Rhythm is sinus rhythm. Vital Signs: 18:18 BP 172 / 88; Pulse 53; Resp 18; Temp 98.6; Pulse Ox 98% on R/A; Weight 98.88 kg; Height [facility] 5 ft. 6 in. (167.64 cm); Pain 7/10; 19:05 BP 144 / 84; Pulse 61; Resp 18; Pulse Ox 100% ; Pain 7/10; mb9 19:40 BP 141 / 84; Pulse 58; Resp 16 S; Pulse Ox 96% on R/A; ha1 18:18 Body Mass Index 35.18 (98.88 kg, 167.64 cm) [facility] ED Course: 18:15 Patient arrived in ED. am2 18:21 Triage completed. jh5 18:21 Arm band placed on right wrist. jh5 18:33 Lisa Boucher RN is Primary Nurse. mb9 18:44 Ayad Chavez PA is PHCP. cp 18:44 Ayad Leon MD is Attending Physician. cp 18:50 Patient has correct armband on for positive identification. Placed in gown. Bed in low mb8 position. Call light in reach. Side rails up X2. Client placed on continuous cardiac and pulse oximetry monitoring. NIBP monitoring applied. quality assurance monitor final on. 18:50 No provider procedures requiring assistance completed. Inserted saline lock: 18 gauge mb8 in right antecubital area, using aseptic technique. Blood collected. 18:50 Patient maintains SpO2 saturation greater than 95% on room air. mb8 18:50 Basic Metabolic Panel Sent. mb9 18:50 CBC with Diff Sent. mb9 18:50 Troponin HS Sent. mb9 18:58 XRAY Chest (1 view) In Process Unspecified. EDMS 19:00 Basic Metabolic Panel Sent. mb9 19:00 CBC with Diff Sent. mb9 19:01 Ptt, Activated Sent. mb9 19:01 PT-INR Sent. mb9 19:01 EKG done, by ED staff, reviewed by Ayad GIL. mb9 19:24 Varsha Darnell MD is Attending Physician. cp 20:16 Primary Nurse role handed off by Lisa Boucher RN bb 22:29 Mackenzie Hayes, BELÉN is Primary Nurse. ha1 08/08 00:21 IV discontinued, intact, bleeding controlled, No redness/swelling at site. Pressure vc1 dressing applied. Administered Medications: 08/07 19:08 Drug: Nitroglycerin 0.4 mg Route: Sublingual; mb9 19:08 Drug: Aspirin Chewable Tablet 162 mg Route: PO; mb9 Medication: 18:49 VIS not applicable for this client. mb8 Outcome: 23:54 Discharge ordered by . cp 08/08 00:21 Discharged to home ambulatory, with significant other. vc1 Condition: improved Discharge instructions given to patient, Instructed on discharge instructions, follow up and referral plans. Demonstrated understanding of instructions, follow-up care. 00:21 Patient left the ED. vc1 Signatures: Dispatcher [employer] EDMichelle Mancera RN RN bb Page, Corey, PA PA cp Moreno, Amanda am2 Laxmi Skinner, RN RN 5 Suzie Seo, RN RN vc1 Mackenzie Hayes, RN RN ha1 Gerardo Landis, RN RN mb8 Lisa Boucher, RN RN mb9 Corrections: (The following items were deleted from the chart) 08/07 18:23 18:18 Chief complaint: Patient states: chest pain on and off for about an hour, 5 throbbing but i cant describe it. Pain is right up in here (Points to mid-left chest) ... I went to urgent care, didn't check in but went number 2 and when I whipped i had fresh bright red blood on the paper but i have hemorrhoids. My chest pain slowed down after i went to the bathroom but it's back [facility] 18:24 18:18 Chief complaint: Patient states: chest pain on and off for about an hour, jh5 throbbing but i cant describe it. Pain is right up in here (Points to mid-left chest) ... I went to urgent care, didn't check in but went number 2 and when I whipped i had fresh bright red blood on the paper but i have hemorrhoids. My chest pain slowed down after i went to the bathroom but it's back. I saw the heart doctor last , i did have a kidney stone and he thought it not my heart and it my kidneys - next Thursday i go and he adrian to test me for all sean. [facility] 18:26 18:18 98.88 kg; Height 5 ft. 6 in.; BMI: 35.1; Pain 7/10; [place] [id number] 18:33 18:18 Chief complaint: Patient states: chest pain on and off for about an hour, mb8 throbbing but i cant describe it. Pain is right up in here (Points to mid-left chest) ... I went to urgent care, didn't check in but went number 2 and when I whipped i had fresh bright red blood on the paper but i have hemorrhoids. My chest pain slowed down after i went to the bathroom but it's back. I saw the heart doctor last , i did have a kidney stone and he thought it not my heart and it my kidneys - next Chase i go and he adrian to test me for all sean. [facility]; Dr. Jerrell Marie jh5
[2022-08-08 00:50] VITALS: TEMP 98.6
[2022-08-08 00:52] VITALS: BP 141/84; O2SAT 96
--- NOTE | 2022-08-09 16:55 | EKG ---
Test Date: 2022-08-07 Test Time: 22:52:51 Nutrition Educator: ERIC MEASUREMENT RESULTS: Intervals: Rate: 53 WV: 166 QRSD: 82 QT: 402 QTc: 377 [place]: P: 52 WV: 166 QRS: 17 T: 51 INTERPRETIVE STATEMENTS: Sinus bradycardia Otherwise normal ECG Compared to ECG 06/24/2022 13:27:26 No significant changes Electronically Signed On 08-09-22 16:53:51 CDT by Gregory Higuera
--- NOTE | 2022-08-09 16:56 | EKG ---
Test Date: 2022-08-07 Test Time: 18:53:16 Die Fitter: MB MEASUREMENT RESULTS: Intervals: Rate: 57 DC: 160 QRSD: 82 QT: 400 QTc: 389 [place]: P: 57 DC: 160 QRS: 42 T: 61 INTERPRETIVE STATEMENTS: Sinus bradycardia Otherwise normal ECG Compared to ECG 06/24/2022 13:27:26 No significant changes Electronically Signed On 08-09-22 16:54:03 CDT by Gregory Higuera
== END 2022-08-08 00:21 | disposition home or self-care (01) ==
LOC: ER 18:13
DX: R07.9 Chest pain, unspecified (principal); I10 Essential (primary) hypertension
CPT/HCPCS: 36415; 71045; 80048; 81003; 81015; 84484; 85025; 85610; 85730; 93005; 99285